=== PATIENT | female | born 1945 | race Caucasian/White ===

== ENCOUNTER → 2018-03-14 09:24 | Outpatient (CLI) | payer MEDICARE, SELFPAY ==
[2018-03-14 15:42] LABS: ALB/GLOB Ratio 0.9 RATIO (0.9-2.4); AST(SGOT) 15 U/L (15-37); Alanine Aminotransfer ALT/SGPT 23 U/L (13-56); Albumin, Serum 3.1 g/dL (3.2-5.0); Alkaline Phosphatase 80 U/L (45-117); Anion Gap 8 (5-15); BUN 12 mg/dL (7-18); BUN/Creat Ratio 14.2 RATIO (10-20); Calcium,Total 8.6 mg/dL (8.5-10.1); Chloride 112 mmol/L (98-107); Creatinine, Serum 0.84 mg/dL (0.55-1.02); EST Glomerular Filtration Rate 71 mL/min (>60); Est Glom Filt Rate - Afr Amer 86 mL/min (>60); Globulin 3.5 g/dL (2.2-4.2); Glucose 109 mg/dL (74-106); Potassium 4.2 mmol/L (3.5-5.1); Protein, Total 6.6 g/dL (6.4-8.2); Sodium Level 144 mmol/L (136-145); Thyroid Stim Hormone (TSH) 1.18 uIU/mL (0.358-3.74)
[2018-03-14 15:53] LABS: Absolute Lymphocyte Count 3.37 X10^3/ul (0.83-4.51); Absolute Neutrophil Count 7.6 X10^3/uL (2.0-7.7); Basophil# 0.05 X10^3/uL; Basophil% 0.4 % (0-1); Eosinophils% 2.4 % (0-5); Hematocrit 42.5 % (37-47); Hemoglobin 13.8 g/dl (12.0-15.0); Lymphocyte # 3.37 X10^3/ul (4.0); Lymphocyte % 27.1 % (19-41); Mean Corp Hgb Conc 32.5 g/gl (32-36); Mean Corpuscular Hgb 30.8 pg (27.0-32.0); Mean Corpuscular Volume 94.9 fL (81-99); Mean Platelet Vol. 9.8 fl (6.2-12.0); Monocyte# 1.06 X10^3/uL; Monocyte% 8.5 % (0-10); Neutrophil % 61.3 % (47-70); Platelet Count 295 K/mm3 (150-450); RBC Distribution Width CV 15.8 % (11.6-14.6); RBC Distribution Width SD 53.1 fl (35.1-43.9); Red Blood Count 4.48 M/mm3 (4.2-5.4); White Blood Count 12.4 K/mm3 (4.4-11.0)
[2018-03-14 15:54] LABS: POSITIVE COUNT NO; POSITIVE DIFFERENTIAL NO; POSITIVE MORPHOLOGY NO
[2018-03-15 08:39] LABS: Vitamin D,25 Hydroxy 19.7 ng/mL (29.95-100.01)
[2018-03-17 09:27] LABS: Hep C Antibodies <0.1 s/co ratio (0.0-0.9)
== END ==
PROVIDERS: Family Provider Family Medicine Geriatric Medicine; PCP Family Medicine Geriatric Medicine; Visit Provider Family Medicine Geriatric Medicine
DX: E11.9 Type 2 diabetes mellitus without complications (principal); E55.9 Vitamin D deficiency, unspecified; I10 Essential (primary) hypertension; Z13.89 Encounter for screening for other disorder
CPT/HCPCS: 36415; 80053; 82306; 84443; 85025; 86803

== ENCOUNTER → 2018-03-25 15:47 | Outpatient (CLI) | payer MEDICARE, SELFPAY ==
--- NOTE | 2018-03-25 16:07 | CT_ITS ---
STUDY: LOW DOSE CT LUNG CANCER SCREENING REASON FOR EXAM: Female, 73 years old. 26 pack-year tobacco use. RADIATION DOSAGE (If Supplied By Facility): CTDIvol = ( 3.02 ) mGy, DLP = ( 97.79 ) mGycm TECHNIQUE: No contrast was administered. Low dose technique was utilized (average mAS-38 and kVp 120). 1.25 mm axial source images with a slice interval of 1.25-mm were reconstructed in lung windows. 2.5 mm axial source images with a slice interval of 2.5-mm were reconstructed in lung windows. 5.0 mm axial source images with a slice interval of 5.0-mm were reconstructed in soft tissue windows. Nodule measured using lung windows on PACS and/or independent workstation with automated measurement of minimum and maximum diameter. Nodule measurement reported as average diameter rounded to the nearest whole number. Growth is defined as an increase ins size of greater than 1.5 mm. COMPARISON: March 01, 2016. NODULES: Total lung nodules (excluding granulomas): 0 Emphysema: There is diffuse emphysematous changes. There are stable bullae in the right lower and middle lobes. Endobronchial lesion: Not Aorta: There is atherosclerotic changes of the thoracic aorta without aneurysm. 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 Coronary arteries: There are coronary artery calcifications. Heart: The heart is normal in size. Pulmonary artery: Mediastinal nodes: There is stable precarinal and subcarinal lymphadenopathy. Other chest and abdominal findings: There are degenerative changes of the lumbar spine. CT/Low Dose CT Lung Screening IMPRESSION: Lung-RADS category 1 - Continue annual screening with LDCT in 12 months. IMPORTANT NOTES FOR USE: ACR Lung-RADS Version 1.0 Assessment Categories Release Date: March 09, 2014 Category: Coded 0-4 bases on nodule(s) with highest degree of suspicion. Negative screen is defined as categories 1 and 2; a positive screen is defined as categories 3 and 4. Category 3 and 4A nodules that are unchanged on interval CT should be coded as category 2, and individuals returned to screening in 12 months. Category 4X: Category 3 or 4 nodules with additional imaging findings that increase the suspicion of lung cancer, such as spiculation, GGN that doubles in size in 1 year, enlarged lymph notes, etc. Category Modifiers: S (significant finding unrelated to lung cancer) and C (prior history of treated lung cancer) may be added to the 0-4 Lung-RADS Electronically Signed: Mumtaz Mullen DO at 16:55 EDT Tel [phone], Service support ,
== END ==
PROVIDERS: Family Provider Family Medicine Geriatric Medicine; PCP Family Medicine Geriatric Medicine; Visit Provider Family Medicine Geriatric Medicine
DX: Z12.2 Encounter for screening for malignant neoplasm of respiratory organs (principal); Z87.891 Personal history of nicotine dependence
CPT/HCPCS: G0297

== ENCOUNTER → 2018-04-11 12:29 | Outpatient (CLI) | payer MEDICARE, SELFPAY ==
--- NOTE | 2018-04-11 12:30 | BI_ITS ---
MAMMOGRAPHY - BILATERAL SCREENING REASON FOR EXAM: Female, 73 years old. Routine annual screening examination. PERTINENT HISTORY: Sister with breast cancer. Aunt with breast cancer. Prior bilateral excisional breast biopsies. TECHNIQUE: Digital bilateral breast arlin (3D mammographic acquisition) in the CC and MLO projections. 2-D mediolateral oblique (MLO) and craniocaudad (CC) views of both breasts were obtained. CAD: Full Field Digital Mammography with Computer Added Detection was performed. COMPARISON: Comparison is made with prior examination dated December 01, 2014 and July 21, 2013. FINDINGS: Breast Composition: There are scattered areas of fibroglandular density. There are no dominant masses or suspicious calcifications. No other significant abnormalities are identified. There has been no significant change since the prior study. BI/SCREENING MAMM (CAD), BILAT IMPRESSION: Stable bilateral screening mammogram. Yearly follow-up mammogram recommended. (A) ASSESSMENT CATEGORY: BIRADS Category 1: Negative. A letter regarding these results will be sent to the patient by the facility within 30 days. Approximately 10% of breast cancers are not detected by mammography. A normal mammogram should not delay biopsy of a clinically suspicious abnormality. [id number] Electronically Signed: Callum Morataya MD at 14:16 EDT Tel [phone], Service support ,
--- NOTE | 2018-04-11 12:32 | BD_ITS ---
STUDY: DUAL ENERGY X-RAY ABSORPTIOMETRY / DXA REASON FOR EXAM: Female, 73 years old. The patient is postmenopausal. Loss of height. TECHNIQUE: Bone Mineral Density (BMD) measurements of lumbar spine and bilateral hips were obtained. COMPARISON: Comparison is made with prior study dated December 01, 2014. FINDINGS: Lumbar Spine (L1-L4): g/cm2 (1.245) / T-score (0.4) / Z-score (2.1) Findings are suggestive of normal bone density with a low fracture risk. Left Femur Total: g/cm2 (0.886) / T-score (-1.0) / Z-score (0.5) Left Femoral Neck: g/cm2 (0.856) / T-score (-1.3) / Z-score (0.4) Right Femur Total: g/cm2 (0.863) / T-score (-1.2) / Z-score (0.4) Right Femoral Neck: g/cm2 (0.816) / T-score (-1.6) / Z-score (0.1) The T-Scores on the most recent prior examination were: Lumbar Spine (L1-L4): There has been worsening of bone density since the previous examination. Left Femur Total: which represents a worsening of 9.7%. Right Femur Total: which represents a worsening of 7.4%. BD/Dexa Bone Density Study IMPRESSION: The patient is considered osteopenic as outlined below according to World Waldo Organization (WHO) criteria with a moderate fracture risk. There has been worsening of bone density since the previous examination. Reference Information: The T-score is the number of standard deviations above or below the standard which is normal for young adults at their peak bone mineral density. The World Health Organization (WHO) interprets the T-scores as follows: Above -1 Normal bone density Between -1 and -2.5 Osteopenia Equal to / or below -2.5 Osteoporosis As a practical clinical guideline, osteopenia may be graded as follows: Mild -1 through -1.5 Moderate -1.6 through -2.0 Severe -2.1 through -2.4 The Z-score is the number of standard deviations above or below age-matched controls. A Z-score of less than -1.5 would be considered abnormal. References: 1. NIH Osteoporosis and Related Bone Diseases http://www.osteo.org 2. International Society for Clinical Densitometry http://www.iscd.org 3. National Osteoporosis Foundation http://www.nof.org Electronically Signed: Callum Morataya MD at 13:51 EDT Tel [phone], Service support ,
== END ==
PROVIDERS: Family Provider Family Medicine Geriatric Medicine; PCP Family Medicine Geriatric Medicine; Visit Provider Family Medicine Geriatric Medicine
DX: Z00.00 Encounter for general adult medical examination without abnormal findings (principal); Z12.31 Encounter for screening mammogram for malignant neoplasm of breast; M85.80 Other specified disorders of bone density and structure, unspecified site; Z78.0 Asymptomatic menopausal state
CPT/HCPCS: 77063; 77067; 77080

== ENCOUNTER 2018-08-20 09:00 | Emergency (ER) | payer MEDICARE, SELFPAY ==
[2018-08-20 09:01] VITALS: BP 174/94; PULSE 66; PULSE 75; RESP 16; RESP 18; TEMP 36.4; O2SAT 96; O2SAT 99; BMI 23.3
[2018-08-20 09:11] LABS: Bedside Glucose 178 mg/dL (70-110)
--- NOTE | 2018-08-20 09:20 | ED.DCSUM_ITS ---
- ER Visit Summary Date of Service: 08/20/18 Chief Complaint: Unresponsive History of Present Illness: The patient is a 73 F who is a diabetic, she is on oral hypoglycemics, she is presenting with an episode of unresponsiveness, she was found to have a blood sugar of 41, now it is resolved after EMS adminis tration of glucagon and dextrose. She tells me she did not eat dinner last night or breakfast this morning but she did take her oral hypoglycemics this morning. She is now back to baseline and has no complaints. She has no chest pain shortness of breath, she has no fever or chills. Physical Examination: Not appear in acute distress. Moist mucous membranes, no obvious facial deformity No C-spine tenderness supple neck. Regular rate and rhythm without any obvious murmurs Clear lungs bilaterally speaking in full sentences without any obvious respiratory distress Abdomen soft and nontender no guarding or rebound Moves all extremities without any difficulty or pain. Skin does not show any obvious rashes or lesions, no trauma. Alert oriented ?3 with no gross focal deficit Emergency Department Course and Treatment: Patient had an unremarkable workup. She was observed in the emergency department, she ate and is doing quite well. She was educated about eating when she takes her oral hypoglycemics. She understands this. She will be discharged in stable condition. Discharge stable condition Impression: [Hypoglycemia] This note was generated with You[employer] dictation software. It may contain incorrect words, spelling, and punctuation that were not noted in review of the chart prior to signing ED Disposition - Plan for ED Patient: Disposition: Home or Assisted Living Chief Complaint: Hypoglycemia Instructions: ED Diabetes Hypoglycemia Oral Agent Referrals: Serafin Juan Chi, MD [Primary Care Provider] - 3-5 Days
--- NOTE | 2018-08-20 09:57 | ED.RN ---
pt ate few bites ham and cheese sandwich, few bite chesse stick, yogurt. given a chicken and pasta meal
[2018-08-20 10:03] VITALS: BP 141/80; PULSE 71; RESP 16; O2SAT 98
[2018-08-20 10:14] LABS: ALB/GLOB Ratio 0.9 RATIO (0.9-2.4); AST(SGOT) 12 U/L (15-37); Alanine Aminotransfer ALT/SGPT 17 U/L (13-56); Albumin, Serum 3.3 g/dL (3.2-5.0); Alkaline Phosphatase 87 U/L (45-117); Anion Gap 10 (5-15); BUN 28 mg/dL (7-18); BUN/Creat Ratio 23.3 RATIO (10-20); Calcium,Total 8.5 mg/dL (8.5-10.1); Chloride 106 mmol/L (98-107); EST Glomerular Filtration Rate 47 mL/min (>60); Est Glom Filt Rate - Afr Amer 57 mL/min (>60); Estimated Creatinine Clearance 40.25 ml/min; Globulin 3.8 g/dL (2.2-4.2); Glucose 257 mg/dL (74-106); Potassium 3.5 mmol/L (3.5-5.1); Protein, Total 7.1 g/dL (6.4-8.2); Sodium Level 138 mmol/L (136-145)
[2018-08-20 10:21] LABS: Eosinophil# 0.18 X10^3/uL; Eosinophils% 1.2 % (0-5); Hemoglobin 15.5 g/dl (12.0-15.0); Lymphocyte % 11.5 % (19-41); Mean Corp Hgb Conc 33.7 g/gl (32-36); Mean Corpuscular Hgb 30.6 pg (27.0-32.0); Mean Corpuscular Volume 90.9 fL (81-99); Mean Platelet Vol. 9.2 fl (6.2-12.0); Monocyte% 5.1 % (0-10); Neutrophil % 81.7 % (47-70); POSITIVE COUNT NO; POSITIVE DIFFERENTIAL NO; POSITIVE MORPHOLOGY NO; Platelet Count 274 K/mm3 (150-450); RBC Distribution Width CV 15.2 % (11.6-14.6); RBC Distribution Width SD 50.5 fl (35.1-43.9); Red Blood Count 5.06 M/mm3 (4.2-5.4); White Blood Count 14.5 K/mm3 (4.4-11.0)
[2018-08-20 10:22] LABS: Absolute Lymphocyte Count 1.66 X10^3/ul (0.83-4.51); Absolute Neutrophil Count 11.8 X10^3/uL (2.0-7.7); Basophil# 0.04 X10^3/uL; Basophil% 0.3 % (0-1); Lymphocyte # 1.66 X10^3/ul (4.0); Monocyte# 0.74 X10^3/uL; Neutrophil # 11.81 X10^3/uL (2.7-7.7)
[2018-08-20 10:30] LABS: Bedside Glucose 257 mg/dL (70-110)
--- NOTE | 2018-08-20 10:45 | NURSING ---
NO LW OR POA
[2018-08-20 11:14] VITALS: BP 148/79; PULSE 87; RESP 16; O2SAT 99
== END 2018-08-20 11:14 | disposition home or self-care (01) ==
PROVIDERS: Emergency Provider Emergency Medicine; Family Provider Family Medicine Geriatric Medicine; PCP Family Medicine Geriatric Medicine
DX: E11.649 Type 2 diabetes mellitus with hypoglycemia without coma (principal); I25.10 Atherosclerotic heart disease of native coronary artery without angina pectoris; I10 Essential (primary) hypertension; E78.00 Pure hypercholesterolemia, unspecified; Z79.84 Long term (current) use of oral hypoglycemic drugs
CPT/HCPCS: 36415; 80053; 82962; 85025; 99284; A4216; J1610

== ENCOUNTER → 2018-09-17 13:11 | Outpatient (CLI) | payer MEDICARE, SELFPAY ==
[2018-09-17 17:07] LABS: Vitamin D,25 Hydroxy 17.8 ng/mL (29.95-100.01)
[2018-09-17 17:09] LABS: ALB/GLOB Ratio 0.9 RATIO (0.9-2.4); AST(SGOT) 11 U/L (15-37); Absolute Lymphocyte Count 3.12 X10^3/ul (0.83-4.51); Absolute Neutrophil Count 8.2 X10^3/uL (2.0-7.7); Alanine Aminotransfer ALT/SGPT 24 U/L (13-56); Albumin, Serum 3.4 g/dL (3.2-5.0); Alkaline Phosphatase 96 U/L (45-117); Anion Gap 12 (5-15); BUN 11 mg/dL (7-18); BUN/Creat Ratio 12.7 RATIO (10-20); Basophil# 0.03 X10^3/uL; Basophil% 0.2 % (0-1); Calcium,Total 8.8 mg/dL (8.5-10.1); Chloride 106 mmol/L (98-107); Creatinine, Serum 0.87 mg/dL (0.55-1.02); EST Glomerular Filtration Rate 68 mL/min (>60); Eosinophil# 0.25 X10^3/uL; Est Glom Filt Rate - Afr Amer 83 mL/min (>60); Globulin 3.8 g/dL (2.2-4.2); Glucose 87 mg/dL (74-106); Hematocrit 46.2 % (37-47); Hemoglobin 14.6 g/dl (12.0-15.0); Lymphocyte # 3.12 X10^3/ul (4.0); Lymphocyte % 24.7 % (19-41); Mean Corp Hgb Conc 31.6 g/gl (32-36); Mean Corpuscular Hgb 30.4 pg (27.0-32.0); Mean Corpuscular Volume 96.3 fL (81-99); Mean Platelet Vol. 9.7 fl (6.2-12.0); Monocyte# 0.99 X10^3/uL; Monocyte% 7.8 % (0-10); Neutrophil # 8.23 X10^3/uL (2.7-7.7); Neutrophil % 65.1 % (47-70); POSITIVE COUNT NO; POSITIVE DIFFERENTIAL NO; POSITIVE MORPHOLOGY NO; Platelet Count 321 K/mm3 (150-450); Potassium 4.1 mmol/L (3.5-5.1); Protein, Total 7.2 g/dL (6.4-8.2); RBC Distribution Width CV 15.6 % (11.6-14.6); Sodium Level 143 mmol/L (136-145); Thyroid Stim Hormone (TSH) 0.96 uIU/mL (0.358-3.74); White Blood Count 12.6 K/mm3 (4.4-11.0)
== END ==
PROVIDERS: Family Provider Family Medicine Geriatric Medicine; PCP Family Medicine Geriatric Medicine; Visit Provider Family Medicine Geriatric Medicine
DX: E11.9 Type 2 diabetes mellitus without complications (principal); I10 Essential (primary) hypertension; E55.9 Vitamin D deficiency, unspecified
CPT/HCPCS: 36415; 80053; 82306; 84443; 85025

== ENCOUNTER → 2019-03-18 | Outpatient (CLI) | payer MEDICARE, SELFPAY ==
[2019-03-18 18:19] LABS: ALB/GLOB Ratio 0.9 RATIO (0.9-2.4); AST(SGOT) 15 U/L (15-37); Alanine Aminotransfer ALT/SGPT 22 U/L (13-56); Albumin, Serum 3.4 g/dL (3.2-5.0); Alkaline Phosphatase 82 U/L (45-117); Anion Gap 9 (5-15); BUN 15 mg/dL (7-18); BUN/Creat Ratio 17.3 RATIO (10-20); Calcium,Total 8.8 mg/dL (8.5-10.1); Chloride 110 mmol/L (98-107); Creatinine, Serum 0.86 mg/dL (0.55-1.02); EST Glomerular Filtration Rate 69 mL/min (>60); Est Glom Filt Rate - Afr Amer 83 mL/min (>60); Globulin 3.7 g/dL (2.2-4.2); Glucose 110 mg/dL (74-106); Potassium 4.1 mmol/L (3.5-5.1); Protein, Total 7.1 g/dL (6.4-8.2); Sodium Level 142 mmol/L (136-145); Thyroid Stim Hormone (TSH) 1.36 uIU/mL (0.358-3.74)
[2019-03-18 19:17] LABS: Absolute Lymphocyte Count 3.33 X10^3/ul (0.83-4.51); Absolute Neutrophil Count 8.2 X10^3/uL (2.0-7.7); Basophil# 0.06 X10^3/uL; Basophil% 0.5 % (0-1); Eosinophil# 0.38 X10^3/uL; Hematocrit 42.7 % (37-47); Hemoglobin 13.7 g/dl (12.0-15.0); Lymphocyte # 3.33 X10^3/ul (4.0); Lymphocyte % 26.3 % (19-41); Mean Corp Hgb Conc 32.1 g/gl (32-36); Mean Corpuscular Hgb 29.8 pg (27.0-32.0); Mean Corpuscular Volume 92.8 fL (81-99); Mean Platelet Vol. 9.6 fl (6.2-12.0); Monocyte# 0.73 X10^3/uL; Monocyte% 5.8 % (0-10); Neutrophil # 8.16 X10^3/uL (2.7-7.7); Neutrophil % 64.3 % (47-70); Platelet Count 277 K/mm3 (150-450); RBC Distribution Width CV 15.8 % (11.6-14.6); RBC Distribution Width SD 53.4 fl (35.1-43.9); White Blood Count 12.7 K/mm3 (4.4-11.0)
[2019-03-18 19:18] LABS: POSITIVE COUNT NO; POSITIVE DIFFERENTIAL NO; POSITIVE MORPHOLOGY NO
== END | disposition home or self-care (01) ==
LOC: POLAB3 16:01
PROVIDERS: Family Provider Family Medicine Geriatric Medicine; PCP Family Medicine Geriatric Medicine; Visit Provider Family Medicine Geriatric Medicine
DX: E11.9 Type 2 diabetes mellitus without complications (principal); I10 Essential (primary) hypertension; E55.9 Vitamin D deficiency, unspecified
CPT/HCPCS: 36415; 80053; 82306; 84443; 85025

== ENCOUNTER 2019-05-30 08:27 | Inpatient (IN) | payer MEDICARE, SELFPAY ==
[2019-05-30] VITALS (15 sets, daily range): BP systolic 130–171; BP diastolic 73–113; PULSE 63–104; RESP 12–32; TEMP 36.4–37.4; O2SAT 3–98; BMI 25.2; BMI 24.7; BMI 24.8
[2019-05-30 08:35] LABS: Bedside Glucose 370 mg/dL (70-110)
--- NOTE | 2019-05-30 08:38 | EKG12_ITS ---
Test Reason : SOB Blood Pressure : / mmHG Vent. Rate : 098 BPM Atrial Rate : 098 BPM P-R Int : 170 ms QRS Dur : 098 ms QT Int : 370 ms P-R-T Axes : 098 073 -56 degrees QTc Int : 472 ms Normal sinus rhythm ST & T wave abnormality, consider inferolateral ischemia Prolonged QT Abnormal ECG Confirmed by DAVEY ABERNATHY, DEMETRA ([id number]), managing editor JUAN JOSÉ MOCTEZUMA ([id number]) on 06/02/2019 12:37:33 PM Referred By: TIMO Confirmed By:DEMETRA MARISCAL MD
--- NOTE | 2019-05-30 08:41 | ED.VISSUMM ---
- ER Visit Summary Date of Service: 05/30/19 Chief Complaint: Shortness of breath History of Present Illness: The patient is a 74 F history of COPD, iot-dyddpie-enfdytegz diabetes prior OH and hypertension. Patient states she has become short of breath this week. Progressively worsening last several days. Cough of clear phlegm. No hemoptysis. No chest pain. No fever. Today she began having diaphoresis. Called the squad. When they picked her up from her home her pulse ox was 78% on room air. She denies any leg swelling or pain. She is never had a DVT or PE. She is had no recent hospitalizations or travel. Physical Examination: Elderly female. He was diaphoretic. Appears short of breath. Initial blood pressure 171/113. Pulse ox is 91% on oxygen. She was hypoxic without it at home. HEENT exam unremarkable. Moist mucous membranes. Neck nontender. No lymphadenopathy. No JVD. Lungs prolonged expiratory phase bilaterally. Expiratory wheezes bilaterally. No obvious rales or rhonchi. Equal and symmetrical. Decreased air movement. Heart regular rhythm no murmur. Abdomen soft and nontender. Normal bowel sounds no peritoneal signs. She is moving all 4 extremities. Calves are nontender without edema or cords. Neurologically she is awake and alert with no focal motor deficits. Test Results: CBC shows a white count 21,000. She is currently on prednisone. Hemoglobin of 13 no bands. Chemistries normal creatinine 1. Gap 7 glucose 364. Troponin is slightly elevated 0.075. BNP is elevated at 785. EKG sinus rhythm with an old inferior OH seen on a prior EKG. Chest x-ray chronic changes consistent with COPD. Concern for pulmonary edema. With the also elevated BNP she will be treated with Lasix for possible pulmonary edema. Emergency Department Course and Treatment: Patient treated with IV Solu-Medrol and aerosols both DuoNeb and albuterol. She will need admission to the hospital. She will be worked up for COPD flare with also evaluation of her cardiac status. Treatment Plan: Patient was started on BiPAP and is showing significant improvement. Clinically she is doing much better at 0 9:52 AM after the BiPAP. She also be given IV Lasix for the pulmonary edema. Hospitalist is on page for admission. Disposition: Admission Impression: Acute exacerbation of COPD Acute pulmonary edema Abnormal troponin Acute hypoxia History of diabetes This note was generated with Dragon dictation software. It may contain incorrect words, spelling, and punctuation that were not noted in review of the chart prior to signing ED Disposition - Plan for ED Patient: Referrals: Serafin Juan Chi, MD [Primary Care Provider] -
[2019-05-30] MEDS: 0.9% Normal Saline 1,000 ML 150 ML IV (09:03)
[2019-05-30] MEDS: MethylPREDNISolone 125 MG/2 ML Vial IV (09:03)
[2019-05-30] MEDS: Ipratropium/Albuterol Sulfate 3 ML AMPUL.NEB INHALATION ×2 (09:15→19:33)
--- NOTE | 2019-05-30 09:18 | RAD_ITS ---
STUDY: X-RAY CHEST REASON FOR EXAM: Female, 74 years old. Shortness of breath/dyspnea. Cough. Diaphoresis. TECHNIQUE: Single AP portable view of the chest. COMPARISON: Comparison is made with prior examination of January 05, 2011. FINDINGS: EKG electrodes are seen. Hyperinflation. Now with evidence of increased interstitial markings worse at the lung bases with areas of confluence. This is superimposed on vascular congestion and mild degree of CHF. There is no demonstrated pleural abnormality. Normal size heart. Normal mediastinum and cat. Normal visualized pulmonary arteries. There is atherosclerotic calcification of the aortic arch with tortuosity. There are diffuse degenerative changes of the visualized thoracic spine. Normal visualized ribs, clavicles, and shoulders. There is no demonstrated abnormality of the visualized soft tissue structures of the upper abdomen. RAD/Chest 1 View (Portable) IMPRESSION: Findings suggestive of a mild degree of CHF with interstitial changes at the lung bases. Electronically Signed: Callum Morataya, at 9:42 EDT , Service support ,
[2019-05-30] MEDS: Albuterol 2.5 MG/3 ML VIAL.NEB. INHALATION ×3 (09:30→10:00)
--- NOTE | 2019-05-30 10:02 | CPS ---
Initial Duoneb tx given via Mask. The next three Albuterol tx's given In-Line with BiPaP
[2019-05-30 10:12] LABS: Absolute Lymphocyte Count 1.16 X10^3/uL (0.83-4.51); Absolute Neutrophil Count 18.4 X10^3/uL (2.0-7.7); Basophil# 0.05 X10^3/uL; Basophil% 0.2 % (0-1); Eosinophil# 0.02 X10^3/uL; Eosinophils% 0.1 % (0-5); Hematocrit 44.3 % (37-47); Hemoglobin 13.8 g/dL (12.0-15.0); Lymphocyte # 1.16 X10^3/ul (4.0); Lymphocyte % 5.5 % (19-41); Mean Corp Hgb Conc 31.2 g/dL (32-36); Mean Corpuscular Hgb 29.9 pg (27.0-32.0); Mean Corpuscular Volume 96.1 fL (81-99); Mean Platelet Vol. 9.6 fl (6.2-12.0); Monocyte# 1.31 X10^3/uL; Monocyte% 6.2 % (0-10); NRBC Flagged by Analyzer 0 % (0-5); Neutrophil # 18.35 X10^3/uL (2.7-7.7); Neutrophil % 87.3 % (47-70); Platelet Count 286 K/mm3 (150-450); RBC Distribution Width CV 16.5 % (11.6-14.6); RBC Distribution Width SD 57.9 fl (35.1-43.9); Red Blood Count 4.61 M/mm3 (4.2-5.4)
[2019-05-30 10:29] LABS: Anion Gap 7 (5-15); BUN 18 mg/dL (7-18); Calcium,Total 8.5 mg/dL (8.5-10.1); Chloride 106 mmol/L (98-107); Creatinine, Serum 1.06 mg/dL (0.55-1.02); EST Glomerular Filtration Rate 54 mL/min (>60); Est Glom Filt Rate - Afr Amer 66 mL/min (>60); Estimated Creatinine Clearance 43.17 ml/min; Glucose 364 mg/dL (74-106); Sodium Level 139 mmol/L (136-145)
[2019-05-30 10:39] LABS: BNP,B-Type NATRIURETIC PEPTIDE 786.2 pg/mL (0-100)
[2019-05-30] MEDS: Furosemide 20 MG/2 ML VIAL IV ×3 (10:51→22:12)
[2019-05-30 12:51] LABS: Bedside Glucose 271 mg/dL (70-110)
[2019-05-30] MEDS: Insulin Lispro 100 UNIT/ML INSULN.PEN SC ×2 (13:40→17:59)
--- NOTE | 2019-05-30 14:44 | CASEMGMT ---
JEANIE VELASCO assessment: Face to Face with patient for initial transition planning/care coordination assessment. JEANIE VELASCO introduced self and role at [facility], pt voices understanding and consents to assessment at this time. Pt is sitting up in bed in no distress at this time and is on 1.5liters oxygen at this time. Pt is A/Ox4 at this time and answers all questions appropriately at this time. Care providers, pharmacy, and demographics verified at this time. PCP: [facility] Specialists: Pt states currently has no specialists. Preferred [facility]acy: [facility] Insurance: [facility] A/B Prescription Benefit: [employer] Living Will/HPOA: Pt is unaware whether she has LW/HPOA at this time and is aware that [facility] can provide AD info and can assist, if needed, pt voices understanding. LNOK: Raj Davidson, ; Joycelyn Davidson, daughter Living Arrangements: Pt states lives in 1 story home with a couple steps into home and states no concerns at home at this time. Pt states is independent with ADL's. Transportation: Pt states she can drive but does most of the driving and pt states no transportation concerns at this time. DME/HHC: Pt states has the following DME: cane, walker, rails, grab bars, but does not use cane/walker currently. Pt states no need for any further DME. Pt states no hx of HHC or SNF in the past. Pt states no preference if oxygen needed at discharge. Pt states no concerns with going home at time of discharge. Pt states is retired. Pt states smokes about 1/2pk/day and does not drink ETOH. Pt states no further concerns/needs at this time. CM to follow for home oxygen and any further discharge planning/needs. Advised pt to ask for CM if any further questions/concerrns/needs arise, voices understanding. Pt Goal: Home Plan[place] JEANIE VELASCO
--- NOTE | 2019-05-30 14:47 | CASEMGMT ---
Patient does not have a Healthcare POA or Healthcare LW. Per admission questions she is not interested in documents. Sera CANTU
--- NOTE | 2019-05-30 15:12 | PCM.HP.STD ---
Problem List (1) HTN (hypertension) Status: Chronic (2) Type 2 diabetes mellitus Status: Chronic (3) Tobacco dependence Status: Chronic History of Present Illness Date of Admission: 05/30/19 Chief Complaint: Shortness of breath, cough. The patient is a 74 year old F who presents the emergency room due to increased shortness of breath and cough. Patient reports she saw her primary care physician on Sunday due to upper respiratory symptoms and ear pressure who placed her on oral doxycycline and prednisone. She reports she had increased shortness of breath this morning which brought her to the emergency room for evaluation. She denies weight gain, lower extremity swelling, orthopnea. She complains of cough which is occasionally productive of clear to yellow sputum. Denies fever, chills. Denies chest pain. She has a past medical history of hypertension, hyperlipidemia, type 2 diabetes mellitus, tobacco dependence. She denies history of COPD or asthma. Denies history of CHF. Past Medical History Past Medical History (Chronic Problems): Chronic Problems HTN (hypertension) (Chronic) Type 2 diabetes mellitus (Chronic) Tobacco dependence (Chronic) Allergies penicillin V Adverse Reaction (Severe, Verified 05/30/19 08:37) Unknown Home Medications: Ambulatory Orders Medication Instructions Recorded Aspir-Low 1 tab PO DAILY 02/05/17 Atorvastatin Calcium 1 tab PO DAILY 02/05/17 Glimepiride [Amaryl] 1 tab PO BID 02/05/17 Isosorbide Mononitrate [Isosorbide 1 tab PO DAILY 02/05/17 Mononitrate ER] Lisinopril 1 tab PO DAILY 02/05/17 Metoprolol Tartrate [Lopressor 100 mg PO BID 02/05/17 (Beta Janel)] metFORMIN HCl [Glucophage] 1 tab PO BID 02/05/17 Albuterol Sulfate [Ventolin Hfa] 2 inhaler PO Q4H PRN 05/30/19 Doxycycline Hyclate 100 mg PO DAILY 05/30/19 Fluticasone Propionate 1 spray NASAL BID 05/30/19 Pioglitazone HCl 15 mg PO DAILY 05/30/19 Prednisone 10 mg PO DAILY 05/30/19 Surgical History: cholecystectomy, hysterectomy, - - Bilateral breast biopsy, left ankle surgery, left toe amputation, right wrist surgery. Psychiatric History: No pertinent psych hx M[employer]ED [employer]IM[employer] VETERINARIAN History: No pertinent [employer]IM[employer] VETERINARIAN history Lives: Spouse/ Significant Other Smoking Status: Current every day smoker Tobacco Use: Cigarettes - Half pack per day Alcohol: None Drugs: None - *Family History Maternal History Items: - - secondary to blood clot. Paternal History Items: Heart Disease, Hypertension Review of Systems Constitutional: Denies: Chills, Fever, Weight Change HEENT: Denies: Head Aches, Sinus Congestion, Sinus Drainage Cardiovascular: Denies: Chest Pain, Edema, Palpitations, Syncope Respiratory: Reports: Cough, Shortness of Breath, Sputum production Gastrointestinal: Denies: Abdominal Pain, Nausea, Vomiting Genitourinary: Denies: Dysuria Musculoskeletal: Denies: Joint Pain, Joint Tenderness Skin: Denies: Rash, Wounds Neurological: Denies: Numbness, Tingling, Focal weakness Psychiatric: Denies: Anxiety, Depression, Homicidal Ideations, Suicidal Ideations Hematologic/ Lymphatic: Denies: Easy Bruising, Easy Bleeding VTE Information - Inpt Only VTE Present on Admission: No VTE Mechan Device Prophylaxis: None VTE Pharm Prophylaxis ordered?: Yes - Physical Exam General: Alert, Oriented x3, Cooperative HEENT: Atraumatic, PERRLA, EOMI, Normocephalic Neck: Supple, No JVD, Negative Carotid Bruits Lungs: Diminished, Wheezes, - - Crackles bilateral bases Cardiovascular: Regular rate, Regular Rhythm, Normal S1, Normal S2, No murmurs Abdomen: Bowel Sounds Present, Soft, Non Tender, Non-Distended Extremities: No clubbing, No cyanosis, No edema, Capillary Refill Less than 3 Seconds Skin: No rashes, No breakdown, - - Scattered ecchymosis bilateral upper extremities. Musculoskeletal: No Tenderness to Palpation of Joints or Extremities Neurological: Cranial nerves II-XII grossly intact, Neuro grossly intact Psych/Mental Status: Normal Affect, Appropriate Vital Signs Temp Pulse Resp BP Pulse Ox 97.9 F 75 18 164/102 H 98 05/30/19 11:51 05/30/19 12:45 05/30/19 12:45 05/30/19 11:51 05/30/19 12:45 Oxygen Flow Rate (L/min) 2 Oxygen Delivery Method Nasal Cannula Weight: 149 lb 0.52 oz Body Mass Index (BMI) 24.7 Laboratory Tests Past 24 Hrs 05/30/19 05/30/19 05/30/19 10:05 10:05 10:05 WBC 21.0 H RBC 4.61 Hgb 13.8 Hct 44.3 MCV 96.1 MCH 29.9 MCHC 31.2 L RDW Std Deviation 57.9 H RDW Coeff of Musa 16.5 H Plt Count 286 MPV 9.6 Immature Gran % (Auto) 0.700 Neut % (Auto) 87.3 H Lymph % (Auto) 5.5 L [place] % (Auto) 6.2 Eos % (Auto) 0.1 Baso % (Auto) 0.2 Absolute Neuts (auto) 18.4 H Absolute Lymphs (auto) 1.16 Absolute Nucleated RBC 0.00 Nucleated RBC % 0 Sodium 139 Potassium 5.0 Chloride 106 Carbon Dioxide 26.0 Anion Gap 7 BUN 18 Creatinine 1.06 H Estim Creat Clear Calc 43.17 Est GFR (MDRD) Af Amer 66 Est GFR (MDRD) Non-Af 54 L BUN/Creatinine Ratio 17.0 Glucose 364 H Calcium 8.5 Troponin I 0.075 H B-Natriuretic Peptide 786.2 H POC Glucose 05/30/19 05/30/19 12:37 08:32 POC Glucose 271 H 370 H Assessment/Plan 1. Acute hypoxic respiratory failure, suspected multifactorial due to new onset CHF and presumed COPD exacerbation-continue supplement oxygen to maintain O2 at or above 90%. Initially placed on BiPAP in ER. Oxygen now stable on 2 L nasal cannula. Albuterol and DuoNeb aerosols. 2. New onset CHF-unknown subtype. BNP 786. Chest x-ray admission consistent with CHF. Patient significantly improved with IV Lasix administered in ER. Continue IV Lasix 20 mg every 8 hours. Strict I&O. Daily weight. Obtain echocardiogram. Repeat chest x-ray in a.m. 3. Suspected COPD exacerbation-patient with recent URI. Denies history of COPD however has extensive tobacco use history and prior imaging with emphysema. Albuterol and DuoNeb aerosols. IV Solu-Medrol. Respiratory panel pending. Recommend outpatient follow-up with pulmonary medicine for pulmonary function testing. 4. Abnormal troponin-suspect demand ischemia as a result of #1/#2. Trend enzymes. Denies chest pain. EKG without ST-T changes. 5. Hypertension-continue home isosorbide, lisinopril, metoprolol regimen. 6. Hyperlipidemia-continue statin. 7. Tobacco dependence-encouraged smoking cessation. Nicotine replacement patch if desired. 8. Type 2 diabetes mellitus-hold home pioglitazone. Accu-Cheks ACHS with SSI. Patient's glucose elevated on admission which is suspected secondary to recent steroid use. DVT prophylaxis-Lovenox subcu. This patient was seen by EARLE Navarro under the supervision of Dr. Corley.
--- NOTE | 2019-05-30 15:42 | ECHOD_ITS ---
Reason For Study: CHF Procedure This was a 2D Doppler, Color Flow transthoracic echocardiogram. Exam performed portable in patient room. Left Ventricle Normal LV size. Mild concentric left ventricular hypertrophy. The estimated ejection fraction is 40 %. Severe Inferior posterior hypokinesis. Right Ventricle Normal right ventricle. Atria The left atrium is mildly enlarged. Mitral Valve Moderate (2+) mitral valve insufficiency. Tricuspid Valve Mild tricuspid valve insufficiency. Pulmonary artery systolic pressure is 43 mmHg. Aortic Valve Normal aortic valve. Pulmonic Valve The pulmonic valve is not well visualized. Great Vessels Normal inferior vena cava. MMode/2D Measurements & Calculations LVIDd: 5.0 cm IVSd: 1.1 cm Ao root diam: 3.5 cm LVIDs: 4.5 cm LVPWd: 1.2 cm RVDd: 3.1 cm FS: 10.1 % LAV(MOD-bp): 61.6 ml LA A4 area: 18.8 cm2 LA dimension(2D): 4.1 cm LAV(MOD-bp) Indexed: 35.2 ml/m2 LAV(MOD-sp2): 70.9 ml LAV(MOD-sp4): 52.0 ml RA A4 area: 15.6 cm2 Doppler Measurements & Calculations MV E max karl: 88.0 cm/sec Lat Peak E' Karl: 6.8 cm/sec Med Peak E' Karl: 3.8 cm/sec MV A max karl: 70.3 cm/sec E/E' lat: 13.0 E/E' med: 23.1 MV E/A: 1.3 Ao V2 max: 119.1 cm/sec LV V1 max: 91.6 cm/sec PA V2 max: 87.8 cm/sec Ao max P.7 mmHg LV V1 max P.4 mmHg TR max karl: 308.0 cm/sec TR max P.1 mmHg Interpretation Summary The estimated ejection fraction is 40 %. Severe Inferior posterior hypokinesis Pulmonary artery systolic pressure is 43 mmHg. Moderate (2+) mitral valve insufficiency. Ordering Physician: Ashlyn Sandra Referring Physician: Serafin Juan Chi Performed By: Leti Garcia RDCS
[2019-05-30 16:16] LABS: Bedside Glucose 363 mg/dL (70-110)
[2019-05-30] MEDS: metFORMIN HCl 1,000 MG Tablet 1000 MG PO (17:58)
[2019-05-30] MEDS: Atorvastatin Calcium 80 MG Tablet PO (22:12)
[2019-05-30] MEDS: Metoprolol Tartrate 100 MG Tablet PO (22:12)
[2019-05-30 22:25] LABS: Bedside Glucose 136 mg/dL (70-110)
[2019-05-31] VITALS (17 sets, daily range): BP systolic 124–150; BP diastolic 72–87; PULSE 57–82; RESP 16–20; TEMP 36.6–37.2; O2SAT 93–96
[2019-05-31] MEDS: Ipratropium/Albuterol Sulfate 3 ML AMPUL.NEB INHALATION ×3 (00:31→13:21)
--- NOTE | 2019-05-31 01:29 | EKG12_ITS ---
Test Reason : ELEVATED TROP Blood Pressure : / mmHG Vent. Rate : 058 BPM Atrial Rate : 058 BPM P-R Int : 160 ms QRS Dur : 100 ms QT Int : 540 ms P-R-T Axes : 000 044 098 degrees QTc Int : 530 ms Sinus bradycardia Nonspecific ST and T wave abnormality Prolonged QT Abnormal ECG When compared with ECG of 30-MAY-2019 09:06, MANUAL COMPARISON REQUIRED, DATA IS UNCONFIRMED Confirmed by DAVEY ABERNATHY, DEMETRA ([id number]), editor farm journal JUAN JOSÉ MOCTEZUMA ([id number]) on 06/03/2019 1:59:12 PM Referred By: DR HERNANDEZ Confirmed By:DEMETRA MARISCAL MD
--- NOTE | 2019-05-31 01:32 | PCM.PN.BLA ---
Progress Note Patient was admitted for acute CHF as the patient COPD as the patient end of abdominal troponin. Troponin was trended and noted to be increasingly rising. Initial troponin was 0.075. Now troponin is 5.140. Patient takes aspirin 81 mg daily at home and had already been continued in the hospital. Will give patient aspirin 162 mg x 1 dose. Will check lipid panel. Will start patient on therapeutic dose of Lovenox. Patient is already on high intensity statin. We will get a 12-lead EKG. Will consult cardiology.
--- NOTE | 2019-05-31 01:33 | NURSING ---
Pts primary rn aware of lab results. And that Dr Connell is aware and placing orders.
[2019-05-31] MEDS: Aspirin 81 MG TAB.CHEW 162 MG PO (02:13)
[2019-05-31] MEDS: Enoxaparin 80 MG/0.8 ML Syringe 70 MG SC ×2 (02:13→10:05)
--- NOTE | 2019-05-31 05:55 | RAD_ITS ---
STUDY: X-RAY CHEST REASON FOR EXAM: Female, 74 years old. Shortness of breath TECHNIQUE: AP COMPARISON: Previous day FINDINGS: The interstitial densities evident on the prior study are no longer identified. No airspace consolidation. There is no demonstrated pleural abnormality. Normal size heart. EKG leads project over the chest. Normal mediastinum and cat. Normal visualized pulmonary arteries. There is atherosclerotic calcification of the aortic arch with tortuosity. No acute bony process. There is no demonstrated abnormality of the visualized soft tissue structures of the upper abdomen. RAD/Chest 1 View (Portable) IMPRESSION: Favorable change. Resolution of interstitial edema/CHF. Electronically Signed: Jose Rae MD at 13:48 EDT , Service support ,
[2019-05-31] MEDS: 0.9% NaCl Peripheral Flush Adult/Peds IV ×3 (06:38→21:13)
[2019-05-31] MEDS: Furosemide 20 MG/2 ML VIAL IV (06:38)
[2019-05-31] MEDS: Insulin Lispro 100 UNIT/ML INSULN.PEN SC ×4 (06:52→21:12)
[2019-05-31 07:01] LABS: Bedside Glucose 161 mg/dL (70-110)
[2019-05-31 07:20] LABS: Anion Gap 10 (5-15); BUN 24 mg/dL (7-18); BUN/Creat Ratio 23.5 RATIO (10-20); Calcium,Total 8.6 mg/dL (8.5-10.1); Chloride 103 mmol/L (98-107); Cholesterol 107 mg/dL (200); Creatinine, Serum 1.02 mg/dL (0.55-1.02); EST Glomerular Filtration Rate 57 mL/min (>60); Est Glom Filt Rate - Afr Amer 69 mL/min (>60); Estimated Creatinine Clearance 44.86 ml/min; Glucose 170 mg/dL (74-106); High Density Lipoprotein 51 mg/dL; Potassium 3.6 mmol/L (3.5-5.1); Sodium Level 143 mmol/L (136-145); Triglycerides 133 mg/dL; Very Low Density Lipoprotein 27 mg/dL (5-40)
[2019-05-31] MEDS: Metoprolol Tartrate 100 MG Tablet PO ×2 (10:02→21:12)
[2019-05-31] MEDS: Isosorbide Mononitrate 60 MG Tablet PO (10:02)
[2019-05-31] MEDS: Aspirin 81 MG TAB.CHEW PO (10:02)
[2019-05-31] MEDS: Lisinopril 5 MG Tablet PO (10:02)
[2019-05-31] MEDS: metFORMIN HCl 1,000 MG Tablet 1000 MG PO ×2 (10:02→17:04)
[2019-05-31 12:30] LABS: Bedside Glucose 253 mg/dL (70-110)
--- NOTE | 2019-05-31 12:44 | PCM.CONS.C ---
Problem List (1) NSTEMI (non-ST elevated myocardial infarction) Status: Acute Reason for Consult Date of Consultation: 05/31/19 History of Present Illness: The patient is a 74 year old F with past medical history significant for diabetes mellitus, dyslipidemia and hypertension. She presented to the emergency room with complaints of acute onset shortness of breath. Denied any chest pain or heaviness. She was initially admitted as COPD exacerbation. However troponins were checked. These ruled in for non-ST elevation myocardial infarction. Per patient, she had been feeling unwell for the past couple of days. Denies any chest pain either at rest or with exertion. She denies any previous history of rest or exertional dyspnea. No nausea or vomiting. [] Past Medical History Allergies/Adverse Reactions: Allergies penicillin V Adverse Reaction (Severe, Verified 05/30/19 08:37) Unknown Home Medications: Ambulatory Orders Medication Instructions Recorded Aspir-Low 1 tab PO DAILY 02/05/17 Atorvastatin Calcium 1 tab PO DAILY 02/05/17 Glimepiride [Amaryl] 1 tab PO BID 02/05/17 Isosorbide Mononitrate [Isosorbide 1 tab PO DAILY 02/05/17 Mononitrate ER] Lisinopril 1 tab PO DAILY 02/05/17 Metoprolol Tartrate [Lopressor 100 mg PO BID 02/05/17 (Beta Janel)] metFORMIN HCl [Glucophage] 1 tab PO BID 02/05/17 Albuterol Sulfate [Ventolin Hfa] 2 inhaler PO Q4H PRN 05/30/19 Doxycycline Hyclate 100 mg PO DAILY 05/30/19 Fluticasone Propionate 1 spray NASAL BID 05/30/19 Pioglitazone HCl 15 mg PO DAILY 05/30/19 Prednisone 10 mg PO DAILY 05/30/19 Past Medical History (Chronic Problems): Chronic Problems HTN (hypertension) (Chronic) Type 2 diabetes mellitus (Chronic) Tobacco dependence (Chronic) Surgical History: cholecystectomy, hysterectomy, - - Bilateral breast biopsy, left ankle surgery, left toe amputation, right wrist surgery. 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 Paternal History Items: Heart Disease, Hypertension Lives: Spouse/ Significant Other Smoking Status: Current every day smoker Tobacco Use: Cigarettes Alcohol: None Drugs: None Review of Systems - Review of Systems General: Denies: Fever, Chills HEENT: Denies: Head Aches Cardiovascular: Reports: Shortness of Breath at Rest. Denies: Chest Discomfort, Chest Discomfort at Rest, Chest Discomfort with Exertion, Orthopnea, PND, Peripheral Edema, Palpitations Gastrointestinal: Denies: Abdominal Discomfort, Jaundice, Nausea, Emesis Neurological: Denies: History of TIA, History of CVA Hematologic/ Lymphatic: Denies: Easy Brusing, Easy Bleeding Subjectve: Comfortable. No apparent distress. Objective: Vital Signs Temp Pulse Resp BP Pulse Ox 97.8 F 82 19 H 150/77 H 94 05/31/19 06:36 05/31/19 10:02 05/31/19 06:48 05/31/19 06:36 05/31/19 09:50 Oxygen Flow Rate (L/min) 2 Oxygen Delivery Method Room Air Weight: 65.1 kg Body Mass Index (BMI) 24.7 Intake and Output for Last 24 Hours 05/29/19 05/30/19 05/31/19 23:59 23:59 23:59 Intake Total 550 / 770 770 / 770 Output Total 2350 / 2750 400 / 400 Balance -1800 / -1980 370 / 370 General: Awake, Alert, Oriented x 3 HEENT: Atraumatic, Normocephalic Oral: Moist Mucosa Neck: Supple, No JVD Lungs: Clear to auscultation Cardiovascular: Regular Rhythm, Normal S1, Normal S2 Vascular: No Carotid Bruits Abdomen: Bowel Sounds Present, Soft Extremities: No edema Neurological: No Focal Motor or Sensory Deficit Psych/Mental Status: Appropriate 05/31/19 00:25: Troponin I 5.140 H* 05/31/19 03:30: Troponin I 3.750 H* 05/31/19 05:53: Sodium 143, Potassium 3.6, Chloride 103, Carbon Dioxide 30.0, Anion Gap 10, BUN 24 H, Creatinine 1.02, Est GFR (MDRD) Af Amer 69, Est GFR (MDRD) Non-Af 57 L, BUN/Creatinine Ratio 23.5 H, Glucose 170 H, Calcium 8.6, Troponin I 3.090 H*, Triglycerides 133, Cholesterol 107, LDL Cholesterol 29, VLDL Cholesterol 27, HDL Cholesterol 51 05/31/19 05:53: Troponin I Cancelled, Triglycerides Cancelled, Cholesterol Cancelled, LDL Cholesterol Cancelled, VLDL Cholesterol Cancelled, HDL Cholesterol Cancelled Rhythm: Normal sinus rhythm EKG: Normal sinus rhythm. Nonspecific ST-T changes. Mildly prolonged QT interval. ECHO: Ejection fraction 40 to 45%. Severe inferior posterior hypokinesis Stress Test: Cardiac Cath: PCI: CT Surgery: Holter monitor: EPS: PPM: CXR: Chest CT Scan: Assessment/Plan 1. Non-ST elevation myocardial infarction. Agree with aspirin. Patient is already on Lovenox. Loaded with clopidogrel. Continue beta-blockers. Nitrates. Recommend cardiac catheterization with coronary angiography and possible revascularization. Risks benefits and alternatives discussed with patient. She understands and wishes to proceed. We will schedule her for the procedure for this coming Sunday. If she has recurrent symptoms in the interim, then we may consider urgent angiography. 2. History of hypertension. 3. History of diabetes mellitus. 4. History of nicotine dependence. 5. Lipid management as per internal medicine.
--- NOTE | 2019-05-31 12:55 | PCM.PROGNOTE ---
Patient Problems: Active and Suspected Problems NSTEMI (non-ST elevated myocardial infarction) (Acute) Subjective: Patient seen and examined. Reports improvement in breathing. Denies further cough. Denies chest pain. Cardiology consulted due to elevated troponin, plan for cardiac catheterization on Sunday. - Physical Exam General: Alert, Oriented x3, Cooperative HEENT: Atraumatic, PERRLA, EOMI, Normocephalic Neck: Supple, No JVD, Negative Carotid Bruits Lungs: Clear to auscultation, Diminished Cardiovascular: Regular rate, Regular Rhythm, Normal S1, Normal S2, No murmurs Abdomen: Bowel Sounds Present, Soft, Non Tender, Non-Distended Extremities: No clubbing, No cyanosis, No edema, Capillary Refill Less than 3 Seconds Skin: No rashes, No breakdown Musculoskeletal: No Tenderness to Palpation of Joints or Extremities Neurological: Cranial nerves II-XII grossly intact, Neuro grossly intact Psych/Mental Status: Normal Affect, Appropriate Vital Signs Temp Pulse Resp BP Pulse Ox 97.8 F 82 19 H 150/77 H 94 05/31/19 06:36 05/31/19 10:02 05/31/19 06:48 05/31/19 06:36 05/31/19 09:50 Oxygen Flow Rate (L/min) 2 Oxygen Delivery Method Room Air Weight: 143 lb 8.335 oz Body Mass Index (BMI) 24.7 Intake and Output for Last 24 Hours 05/29/19 05/30/19 05/31/19 23:59 23:59 23:59 Intake Total 550 / 770 770 / 770 Output Total 2350 / 2750 400 / 400 Balance -1800 / -1979 370 / 370 Microbiology Past 72 Hours 05/30/19 12:37 Respiratory Panel (PCR) - Final Mucosa - Nasopharyngeal Laboratory Tests Past 24 Hrs 05/31/19 05/31/19 05/31/19 00:25 03:30 05:53 Sodium 143 Potassium 3.6 Chloride 103 Carbon Dioxide 30.0 Anion Gap 10 BUN 24 H Creatinine 1.02 Estim Creat Clear Calc 44.86 Est GFR (MDRD) Af Amer 69 Est GFR (MDRD) Non-Af 57 L BUN/Creatinine Ratio 23.5 H Glucose 170 H Calcium 8.6 Troponin I 5.140 H* 3.750 H* 3.090 H* Triglycerides 133 Cholesterol 107 LDL Cholesterol 29 VLDL Cholesterol 27 HDL Cholesterol 51 05/31/19 05:53 Sodium Potassium Chloride Carbon Dioxide Anion Gap BUN Creatinine Estim Creat Clear Calc Est GFR (MDRD) Af Amer Est GFR (MDRD) Non-Af BUN/Creatinine Ratio Glucose Calcium Troponin I Cancelled Triglycerides Cancelled Cholesterol Cancelled LDL Cholesterol Cancelled VLDL Cholesterol Cancelled HDL Cholesterol Cancelled POC Glucose 05/31/19 05/31/19 05/30/19 12:22 06:49 22:11 POC Glucose 253 H 161 H 136 H 05/30/19 16:10 POC Glucose 363 H Medical Necessity - Tobacco Use Smoking Status: Current every day smoker Tobacco Use: Cigarettes Assessment/Plan All Active Problems NSTEMI (non-ST elevated myocardial infarction) (Acute) 1. Acute hypoxic respiratory failure, suspected multifactorial due to new onset CHF and presumed COPD exacerbation-continue supplement oxygen to maintain O2 at or above 90%. Initially placed on BiPAP in ER. Oxygen stable on room air. Albuterol and DuoNeb aerosols. 2. New onset systolic CHF-BNP 786. Chest x-ray admission consistent with CHF. Discontinue IV Lasix 20 mg every 8 hours. Transition to oral Lasix. Strict I&O. Daily weight. Echocardiogram shows an EF of 40%, severe inferior posterior hypokinesis, pulmonary artery systolic pressure 43 mmHg, moderate mitral valve deficiency. Repeat chest x-ray appears improved from prior. 3. Suspected COPD exacerbation-patient with recent URI. Denies history of COPD however has extensive tobacco use history and prior imaging with emphysema. Albuterol and DuoNeb aerosols. IV Solu-Medrol. Respiratory panel negative. Recommend outpatient follow-up with pulmonary medicine for pulmonary function testing. 4. NSTEMI-EKG without ST-T changes. Cardiology consult placed. Loaded with Plavix. Continue aspirin, statin, metoprolol, isosorbide. Patient will undergo cardiac catheterization Sunday. 5. Hypertension-continue home isosorbide, lisinopril, metoprolol regimen. 6. Hyperlipidemia-continue statin. 7. Tobacco dependence-encouraged smoking cessation. Nicotine replacement patch if desired. 8. Type 2 diabetes mellitus-hold home pioglitazone. Accu-Cheks ACHS with SSI. Patient's glucose elevated on admission which is suspected secondary to recent steroid use. DVT prophylaxis-Lovenox subcu This patient was seen by EARLE Navarro under the supervision of Dr. Corley.
[2019-05-31] MEDS: Nitroglycerin Oint 1 INCH PACKET TRANSDERM. ×2 (14:08→23:43)
[2019-05-31] MEDS: Clopidogrel Bisulfate 300 MG Tablet PO (14:08)
[2019-05-31] MEDS: Furosemide 20 MG Tablet PO (17:04)
[2019-05-31 17:16] LABS: Bedside Glucose 166 mg/dL (70-110)
[2019-05-31 17:22] LABS: Hemoglobin A1c 7.4 % (4.2-6.3)
[2019-05-31] MEDS: Atorvastatin Calcium 80 MG Tablet PO (21:12)
[2019-05-31 22:40] LABS: Bedside Glucose 183 mg/dL (70-110)
[2019-06-01] VITALS (13 sets, daily range): BP systolic 151–173; BP diastolic 88–97; PULSE 54–77; RESP 16–18; TEMP 36.6–37.2; O2SAT 95–99
[2019-06-01] MEDS: Nitroglycerin Oint 1 INCH PACKET TRANSDERM. ×4 (05:45→23:57)
[2019-06-01] MEDS: Insulin Lispro 100 UNIT/ML INSULN.PEN SC ×3 (07:09→22:04)
[2019-06-01] MEDS: Clopidogrel Bisulfate 75 MG Tablet PO (09:11)
[2019-06-01] MEDS: Furosemide 20 MG Tablet PO ×2 (09:11→11:35)
[2019-06-01] MEDS: Metoprolol Tartrate 100 MG Tablet PO ×2 (09:11→22:03)
[2019-06-01] MEDS: Lisinopril 5 MG Tablet PO ×2 (09:11→22:03)
[2019-06-01] MEDS: Aspirin 81 MG TAB.CHEW PO (09:11)
[2019-06-01] MEDS: metFORMIN HCl 1,000 MG Tablet 1000 MG PO (09:11)
[2019-06-01] MEDS: Enoxaparin 40 MG/0.4 ML Syringe SC (09:12)
--- NOTE | 2019-06-01 09:43 | PN_ITS ---
Patient Problems: Active and Suspected Problems NSTEMI (non-ST elevated myocardial infarction) (Acute) Subjective: Patient seen and examined. Denies chest pain overnight. Shortness of breath resolved. Plan for cardiac catheterization in the morning, patient denies questions or concerns. - Physical Exam General: Alert, Oriented x3, Cooperative HEENT: Atraumatic, PERRLA, EOMI, Normocephalic Neck: Supple, No JVD, Negative Carotid Bruits Lungs: Clear to auscultation, Diminished Cardiovascular: Regular rate, Regular Rhythm, Normal S1, Normal S2, No murmurs Abdomen: Bowel Sounds Present, Soft, Non Tender, Non-Distended Extremities: No clubbing, No cyanosis, No edema, Capillary Refill Less than 3 Seconds Skin: No rashes, No breakdown Musculoskeletal: No Tenderness to Palpation of Joints or Extremities Neurological: Cranial nerves II-XII grossly intact, Neuro grossly intact Psych/Mental Status: Normal Affect, Appropriate Vital Signs Temp Pulse Resp BP Pulse Ox 98.2 F 77 18 158/88 H 96 06/01/19 05:40 06/01/19 09:11 06/01/19 05:40 06/01/19 05:40 06/01/19 05:40 Oxygen Flow Rate (L/min) 2 Oxygen Delivery Method Room Air Weight: 143 lb 15.39 oz Body Mass Index (BMI) 24.7 Intake and Output for Last 24 Hours 05/30/19 05/31/19 06/01/19 23:59 23:59 23:59 Intake Total 550 / 770 1250 / 1490 240 / 240 Output Total 2350 / 2750 400 / 700 300 / 300 Balance -1800 / -1980 850 / 790 -60 / -60 Microbiology Past 72 Hours 05/30/19 12:37 Respiratory Panel (PCR) - Final Mucosa - Nasopharyngeal Laboratory Tests Past 24 Hrs 05/31/19 05:53 Hemoglobin A1c 7.4 H POC Glucose 05/31/19 05/31/19 05/31/19 21:11 16:59 12:22 POC Glucose 183 H 166 H 253 H Medical Necessity - Tobacco Use Smoking Status: Current every day smoker Tobacco Use: Cigarettes Assessment/Plan All Active Problems NSTEMI (non-ST elevated myocardial infarction) (Acute) 1. Acute hypoxic respiratory failure, suspected multifactorial due to new onset CHF and presumed COPD exacerbation-continue supplement oxygen to maintain O2 at or above 90%. Initially placed on BiPAP in ER. Oxygen stable on room air. Albuterol and DuoNeb aerosols. 2. New onset systolic CHF-BNP 786. Chest x-ray admission consistent with CHF. IV Lasix discontinued. Continue oral Lasix 40mg daily. Strict I&O. Daily weight. Echocardiogram shows an EF of 40%, severe inferior posterior hypokinesis, pulmonary artery systolic pressure 43 mmHg, moderate mitral valve deficiency. Repeat chest x-ray improved from prior. 3. Suspected COPD exacerbation-patient with recent URI. Denies history of COPD however has extensive tobacco use history and prior imaging with emphysema. Albuterol and DuoNeb aerosols. DC IV Solu-Medrol. Respiratory panel negative. Recommend outpatient follow-up with pulmonary medicine for pulmonary function testing. Transition to oral prednisone 40mg X5 days. 4. NSTEMI-EKG without ST-T changes. Cardiology consult placed. Continue asp irin, plavix, statin, metoprolol, isosorbide. Patient will undergo cardiac catheterization Sunday. 5. Hypertension-continue home isosorbide, lisinopril, metoprolol regimen. 6. Hyperlipidemia-continue statin. 7. Tobacco dependence-encouraged smoking cessation. Nicotine replacement patch if desired. 8. Type 2 diabetes mellitus-hold home pioglitazone. Accu-Cheks ACHS with SSI. Patient's glucose elevated on admission which is suspected secondary to recent steroid use. DVT prophylaxis-Lovenox subcu This patient was seen by EARLE Navarro under the supervision of Dr. Corley.
--- NOTE | 2019-06-01 10:54 | PCM.PN.CARD ---
Subjectve: No complaints. No chest pain or shortness of breath. Objective: Vital Signs Temp Pulse Resp BP Pulse Ox 98.2 F 77 18 158/88 H 96 06/01/19 05:40 06/01/19 09:11 06/01/19 05:40 06/01/19 05:40 06/01/19 05:40 Oxygen Flow Rate (L/min) 2 Oxygen Delivery Method Room Air Weight: 65.3 kg Body Mass Index (BMI) 24.7 Intake and Output for Last 24 Hours 05/30/19 05/31/19 06/01/19 23:59 23:59 23:59 Intake Total 550 / 770 1250 / 1490 240 / 240 Output Total 2350 / 2750 400 / 700 300 / 300 Balance -1800 / -1980 850 / 790 -60 / -60 General: Healthy Appearing, Awake, Alert, Oriented x 3, No Acute Distress Neck: Supple Lungs: Clear to auscultation Cardiovascular: Regular Rhythm, Normal S1, Normal S2 Abdomen: Bowel Sounds Present, Soft Extremities: No edema 05/31/19 05:53: Hemoglobin A1c 7.4 H Rhythm: EKG: ECHO: Stress Test: Cardiac Cath: PCI: CT Surgery: Holter monitor: EPS: PPM: CXR: Chest CT Scan: Medical Necessity - Tobacco Use Smoking Status: Current every day smoker Tobacco Use: Cigarettes Assessment/Plan 1. Non-ST elevation myocardial infarction. Asymptomatic. Continue current medications. Echocardiogram with inferior posterior hypokinesis. For cardiac catheterization with coronary angiography and possible revascularization in the morning. 2. History of hypertension. Blood pressure not optimally controlled. Increase lisinopril to 5 mg twice daily. 3. History of diabetes mellitus. 4. History of nicotine dependence. Counseled to quit 5. Lipid management as per internal medicine.
[2019-06-01 11:26] LABS: Bedside Glucose 199 mg/dL (70-110)
[2019-06-01 12:20] LABS: Bedside Glucose 222 mg/dL (70-110)
[2019-06-01 16:46] LABS: Bedside Glucose 112 mg/dL (70-110)
[2019-06-01] MEDS: Atorvastatin Calcium 80 MG Tablet PO (22:03)
[2019-06-01 22:25] LABS: Bedside Glucose 212 mg/dL (70-110)
[2019-06-01] MEDS: 0.9% NaCl Peripheral Flush Adult/Peds IV (22:30)
[2019-06-01 23:22] LABS: Bacteria 0 SEEN /hpf (None Seen); Mucous, Urine 0 SEEN /hpf (<or=2+); Squamous Epithelial Cells - UA 0 SEEN /hpf (5-10)
[2019-06-01 23:24] LABS: Color, Urine Straw (Yellow); Glucose, Dipstick Normal (Normal); Ketone-Dipstick Negative (Negative); Leukocyte Esterase-Dipstick 25 /ul (Negative); Nitrite-Dipstick Negative (Negative); Occult Blood-Urine 10 /ul (Negative); Protein-Dipstick Negative (Negative); Urine Bilirubin Dipstick Negative (Negative); Urine Clarity Clear (Clear); Urine Urobilinogen Normal (Normal)
[2019-06-01 23:30] LABS: Red Blood Cells-Urine 0-5 SEEN /hpf (0-5); White Blood Cells 0-5 SEEN /hpf (0-5)
[2019-06-02] VITALS (16 sets, daily range): BP systolic 129–174; BP diastolic 74–96; PULSE 53–65; RESP 12–17; TEMP 36.8–36.9; O2SAT 92–97
[2019-06-02] MEDS: Nitroglycerin Oint 1 INCH PACKET TRANSDERM. (05:27)
[2019-06-02] MEDS: Metoprolol Tartrate 100 MG Tablet PO (05:27)
[2019-06-02] MEDS: Lisinopril 5 MG Tablet PO (05:27)
[2019-06-02] MEDS: 0.9% NaCl Peripheral Flush Adult/Peds IV (05:27)
[2019-06-02] MEDS: Clopidogrel Bisulfate 75 MG Tablet PO (05:27)
[2019-06-02] MEDS: Aspirin 81 MG TAB.CHEW PO (05:27)
[2019-06-02 05:56] LABS: Hematocrit 46.4 % (37-47); Hemoglobin 15.3 g/dL (12.0-15.0); Mean Corpuscular Hgb 29.5 pg (27.0-32.0); Mean Corpuscular Volume 89.4 fL (81-99); Mean Platelet Vol. 9.7 fl (6.2-12.0); Platelet Count 251 K/mm3 (150-450); RBC Distribution Width CV 16.5 % (11.6-14.6); RBC Distribution Width SD 53.5 fl (35.1-43.9); Red Blood Count 5.19 M/mm3 (4.2-5.4); White Blood Count 13.9 K/mm3 (4.4-11.0)
[2019-06-02 06:04] LABS: Partial Thromboplast Time 25.5 Seconds (24.1-36.2); Prothrombin Time (Protime)PT. 12.7 SECONDS (11.7-14.9)
[2019-06-02 06:16] LABS: Anion Gap 10 (5-15); BUN 38 mg/dL (7-18); BUN/Creat Ratio 43.1 RATIO (10-20); Calcium,Total 8.8 mg/dL (8.5-10.1); Chloride 99 mmol/L (98-107); Creatinine, Serum 0.88 mg/dL (0.55-1.02); EST Glomerular Filtration Rate 67 mL/min (>60); Est Glom Filt Rate - Afr Amer 81 mL/min (>60); Glucose 148 mg/dL (74-106); Potassium 3.4 mmol/L (3.5-5.1); Sodium Level 139 mmol/L (136-145)
--- NOTE | 2019-06-02 07:00 | NURSING ---
REPORT CALLED TO RN CLINICAL DOCUMENTATION SPECIALIST
--- NOTE | 2019-06-02 08:00 | PN.CARD_ITS ---
Subjectve: Patient seen and evaluated. Underwent cardiac catheterization this morning. Objective: Vital Signs Temp Pulse Resp BP Pulse Ox 98.2 F 58 L 16 174/86 H 95 06/02/19 05:30 06/02/19 07:00 06/02/19 05:30 06/02/19 05:30 06/02/19 05:30 Oxygen Flow Rate (L/min) 2 Oxygen Delivery Method Room Air Weight: 143 lb 15.39 oz Body Mass Index (BMI) 24.7 Intake and Output for Last 24 Hours 05/31/19 06/01/19 06/02/19 23:59 23:59 23:59 Intake Total 1250 / 1490 960 / 1006 46 / 46 Output Total 400 / 700 600 / 1000 1000 / 1000 Balance 850 / 790 360 / 6 -954 / -954 General: Awake, Alert, Oriented x 3 HEENT: PERRL, EOMI, Sclera Non Icteric Neck: Supple, Good ROM, No Lymph Node Enlargement Lungs: Clear to auscultation Cardiovascular: Regular Rhythm, Normal S1, Normal S2, No Murmurs, No Rubs, No Gallops Vascular: No Carotid Bruits, Normal Femoral Pulses, Normal Radial Pulses, Normal Dorsalis Pedal Pulse, Normal Posterior Tibial Pulses Abdomen: Bowel Sounds Present, Soft, Non Tender, No HSM, No Organomegaly Extremities: No Cyanosis, No Clubbing, No edema Musculoskeletal: No Erythema Lymphatic: No Lymph Node Enlargement Neurological: No Focal Motor or Sensory Deficit 06/01/19 20:43: Urine Color Straw, Urine Clarity Clear, Urine pH 6.0, Ur Specific [place] 1.010, Urine Protein Negative, Urine Glucose (UA) Normal, Urine Ketones Negative, Urine Occult Blood 10 H, Urine Nitrite Negative, Urine Bilirubin Negative, Urine Urobilinogen Normal, Ur Leukocyte Esterase 25 H, Urine RBC 0-5 SEEN, Urine WBC 0-5 SEEN 06/02/19 05:00: Sodium 139, Potassium 3.4 L, Chloride 99, Carbon Dioxide 30.0, Anion Gap 10, BUN 38 H, Creatinine 0.88, Est GFR (MDRD) Af Amer 81, Est GFR (MDRD) Non-Af 67, BUN/Creatinine Ratio 43.1 H, Glucose 148 H, Calcium 8.8 06/02/19 05:00: WBC 13.9 H, RBC 5.19, Hgb 15.3 H, Hct 46.4, MCV 89.4, MCH 29.5, MCHC 33.0, Plt Count 251, MPV 9.7 06/02/19 05:00: PT 12.7, INR 1.0, APTT 25.5 Rhythm: EKG: ECHO: Stress Test: Cardiac Cath: PCI: CT Surgery: Holter monitor: EPS: PPM: CXR: Chest CT Scan: Medical Necessity - Tobacco Use Smoking Status: Current every day smoker Tobacco Use: Cigarettes Assessment/Plan 1. Non-ST elevation myocardial infarction. * Patient underwent cardiac catheterization this morning we demonstrated the following * Normal calcified left main coronary artery * Left anterior descending artery with mid segment 60% stenosis in first diag onal vessel with 50% stenosis * Left circumflex artery with proximal subtotal occlusion and left to left collaterals and [id number] collaterals * Dominant right coronary artery which is totally occluded with [id number] collaterals * Severe left ventricular systolic dysfunction with estimated ejection fraction of 30% and left ventricular end-diastolic pressure of 15 with 2+ mitral regurgitation * Based on the above angiographic findings would consider evaluation for coronary artery bypass surgery. * 2. Congestive heart failure * Above likely secondary to systolic dysfunction, coronary artery disease, mitral regurgitation. * Continue beta-jean * Continue RHYS inhibitor * Continue diuretic * Would recommend mitral valve surgery * Would recommend ultimate transfer today or tomorrow to a tertiary care facility.
[2019-06-02 10:50] LABS: Bedside Glucose 149 mg/dL (70-110)
--- NOTE | 2019-06-02 11:01 | CL.D_ITS ---
Patient Name: MARTHA ESTEVES Study Date: 06/02/2019 Performing: Evin Estrella MD Ht: 65 inches 165 cm : 1945 Wt: 143.5 lbs 65 kg Age: 74 Gender: female BSA: 1.72 PROCEDURE(S) PERFORMED [id number] CLINICAL PROFILE AND INDICATIONS Indications: Suspected CAD Heart Failure: NYHA Class: 3, Newly Diagnosed: Yes, Heart Failure Type: Systolic Stress/Imaging Stress/Image Study Performed: No CONCLUSIONS Totally occluded right coronary artery, subtotally occluded left circumflex artery, moderate disease noted in the left anterior descending artery, left to right collaterals, moderate mitral regurgitatio n, depressed left ventricular systolic function. RECOMMENDATIONS Surgery consult for coronary revascularization Surgery consult for valvular disease DESCRIPTION OF PROCEDURE The patient arrived to the procedure lab. The risks and benefits of the procedure as well as a full d escription of our services here and current unavailability of surgical backup were fully explained to the patient and/or their significant other prior to the catheterization. The Timeout was completed, verifying the correct patient and procedure. The patient's procedural site was prepped and draped in the usual fashion. Local anesthetic was given subcutaneously to right groin region with Lidocaine 2%. Using a modified Seldinger technique, arterial access was obtained via the right femoral artery, a 5 Fr sheath was inserted. Left Coronary Artery selective angiography was performed in multiple views u sing a 5 Fr. JL4 catheter. Right Coronary Artery selective angiography was then performed in multiple views using a 5 Fr. 3DRC (Douglas) catheter. Left Ventriculography was performed in SHRESTHA projection using a 5 Fr. Pigtail catheter. LV to AO pullback pressures were then recorded.The arterial sheath was pulled and manual compression applied until hemostasis is achieved. CORONARY ANGIOGRAPHY DOMINANCE: Right Dominant LEFT HEART ASSESSMENT Left Ventricular Ejection Fraction: by LV Gram 30 % Inferior Basal Akinesis Depressed Left Ventricular systolic function LEFT MAIN: Mild calcification, 30 % Stenosis LEFT ANTERIOR DESCENDING ARTERY: MID LAD: 60 % Stenosis DISTAL LAD: 50 % Stenosis DIAGONAL 1: Ostial - 70 % Stenosis CIRCUMFLEX ARTERY: PROX CIRC: is occluded RIGHT CORONARY ARTERY: PROX RCA: is occluded COLLATERAL FLOW: Collateral flow from Left to Left Collateral flow from Left to Right VALVE FINDINGS: Mitral Valve Insufficiency - Grade 3 COMPLICATIONS No Complications PROCEDURE MEDICATIONS Versed 1 mg IV Oxygen: 2 L/min via nasal cannula SUMMARY OF HEMODYNAMIC DATA Time AIR REST ECG 07:28:38 AO 172/97 (125) SA 07:44:08 LV 172/8, 11 07:51:40 LV 166/6, 11 07:51:47 LV 160/7, 8 07:52:47 LV 164/10, 15 07:52:53 LVp 164/6, 15 07:52:57 AOp 167/82 (119) 07:53:02 Signed By Evin Estrella MD On 06/02/2019 10:59:52 AM Evin Estrella MD
[2019-06-02 11:25] LABS: Bedside Glucose 175 mg/dL (70-110)
--- NOTE | 2019-06-02 12:12 | DS.PCM_ITS ---
Discharge Date and Diagnosis Date of Admission: 05/30/19 Date of Discharge: 06/02/19 - Primary Discharge Diagnosis Active and Suspected Problems (Last Updated 06/02/19 @ 11:49 by Brittani Guzman) 1. NSTEMI/Severe CAD 2. Acute hypoxic respiratory failure, suspected multifactorial due to new onset CHF and presumed COPD exacerbation 3. New onset systolic CHF 4. Suspected COPD exacerbation 5. Hypertension 6. Hyperlipidemia 7. Tobacco dependence 8. Type 2 diabetes mellitus - Secondary Discharge Diagnosis Chronic Problems (Last Updated 06/02/19 @ 11:49 by Brittani Guzman) Secondary pulmonary arterial hypertension (Chronic) Nonrheumatic mitral (valve) insufficiency (Chronic) Atherosclerotic heart disease [place] coronary artery w/angina pectoris (Chronic) Nicotine dependence (Chronic) Essential (primary) hypertension (Chronic) Type 2 diabetes mellitus (Chronic) Hospital Course and Treatment Imaging Results: Diagnostic Data Chest X-Ray 05/31/19 05:55 IMPRESSION: Favorable change. Resolution of interstitial edema/CHF. Electronically Signed: Jose Rae MD at 13:48 EDT , Service support , Diagnostic Data Chest X-Ray 05/31/19 05:55 IMPRESSION: Favorable change. Resolution of interstitial edema/CHF. Electronically Signed: oJse Rae MD at 13:48 EDT , Service support , Dr. Murillo- Cardiology Operations: None Procedures: 2-D Echocardiogram, Cardiac catheterization Summary of Care Provided: The patient is a 74 year old F admitted 05/30/2019 due to shortness of breath, cough. 1. Acute hypoxic respiratory failure, suspected multifactorial due to new onset CHF and presumed COPD exacerbation-continue supplement oxygen to maintain O2 at or above 90%. Initially placed on BiPAP in ER. Oxygen stable on room air. Albuterol and DuoNeb aerosols. 2. New onset systolic CHF-BNP 786. Chest x-ray admission consistent with CHF. IV Lasix discontinued. Continue oral Lasix 40mg daily. Strict I&O. Daily weight. Echocardiogram shows an EF of 40%, severe inferior posterior hypokinesis, pulmonary artery systolic pressure 43 mmHg, moderate mitral valve deficiency. Repeat chest x-ray improved from prior. 3. Suspected COPD exacerbation-patient with recent URI. Denies history of COPD however has extensive tobacco use history and prior imaging with emphysema. Albuterol and DuoNeb aerosols. DC IV Solu-Medrol. Respiratory panel negative. Recommend outpatient follow-up with pulmonary medicine for pulmonary function testing. 4. NSTEMI/CAD-EKG without ST-T changes. Continue aspirin, plavix, statin, metoprolol, isosorbide. Patient underwent cardiac catheterization which demonstrated totally occluded right coronary artery, subtotally occluded left circumflex artery, moderate disease noted in the left anterior descending artery, left to right collaterals, moderate mitral regurgitation, depressed left ventricular systolic function with EF 30%. Given multivessel disease, recommend ation was to transfer to tertiary facility for surgical consult for coronary revascularization and consult for valvular disease. Patient to be transferred to [facility] for further evaluation. 5. Hypertension-continue home isosorbide, lisinopril, metoprolol regimen. 6. Hyperlipidemia-continue statin. 7. Tobacco dependence-encouraged smoking cessation. 8. Type 2 diabetes mellitus-hold home pioglitazone. Accu-Cheks ACHS with SSI. General: Alert, Oriented x3, Cooperative HEENT: Atraumatic, PERRLA, EOMI, Normocephalic Neck: Supple, No JVD, Negative Carotid Bruits Lungs: Clear to auscultation, Diminished Cardiovascular: Regular rate, Regular Rhythm, Normal S1, Normal S2, No murmurs Abdomen: Bowel Sounds Present, Soft, Non Tender, Non-Distended Extremities: No clubbing, No cyanosis, No edema, Capillary Refill Less than 3 Seconds Skin: No rashes, No breakdown Musculoskeletal: No Tenderness to Palpation of Joints or Extremities Neurological: Cranial nerves II-XII grossly intact, Neuro grossly intact Psych/Mental Status: Normal Affect, Appropriate Patient seen and examined prior to discharge. Physical assessment as noted above. Patient stable at time of transfer. This patient was seen by EARLE Navarro under the supervision of Dr. Corley. - Physical Exam Vital Signs Temp Pulse Resp BP Pulse Ox 98.5 F 56 L 16 142/88 H 94 06/02/19 09:13 06/02/19 11:40 06/02/19 11:40 06/02/19 11:40 06/02/19 11:40 Oxygen Flow Rate (L/min) 2 Oxygen Delivery Method Room Air Weight: 143 lb 15.39 oz Body Mass Index (BMI) 24.7 Intake and Output for Last 24 Hours 05/31/19 06/01/19 06/02/19 23:59 23:59 23:59 Intake Total 1250 / 1490 960 / 1006 46 / 46 Output Total 400 / 700 600 / 1000 1400 / 1400 Balance 850 / 790 360 / 6 -1354 / -1354 Microbiology Past 72 Hours 05/30/19 12:37 Respiratory Panel (PCR) - Final Mucosa - Nasopharyngeal Laboratory Tests Past 24 Hrs 06/01/19 06/02/19 06/02/19 20:43 05:00 05:00 WBC 13.9 H RBC 5.19 Hgb 15.3 H Hct 46.4 MCV 89.4 MCH 29.5 MCHC 33.0 RDW Std Deviation 53.5 H RDW Coeff of Musa 16.5 H Plt Count 251 MPV 9.7 PT INR APTT Sodium 139 Potassium 3.4 L Chloride 99 Carbon Dioxide 30.0 Anion Gap 10 BUN 38 H Creatinine 0.88 Estim Creat Clear Calc 52.00 Est GFR (MDRD) Af Amer 81 Est GFR (MDRD) Non-Af 67 BUN/Creatinine Ratio 43.1 H Glucose 148 H Calcium 8.8 Urine Color Straw Urine Clarity Clear Urine pH 6.0 Ur Specific [place] 1.010 Urine Protein Negative Urine Glucose (UA) Normal Urine Ketones Negative Urine Occult Blood 10 H Urine Nitrite Negative Urine Bilirubin Negative Urine Urobilinogen Normal Ur Leukocyte Esterase 25 H Urine RBC 0-5 SEEN Urine WBC 0-5 SEEN Ur Squamous Epith Cells 0 SEEN Urine Bacteria 0 SEEN Urine Mucus 0 SEEN 06/02/19 05:00 WBC RBC Hgb Hct MCV MCH MCHC RDW Std Deviation RDW Coeff of Musa Plt Count MPV PT 12.7 INR 1.0 APTT 25.5 Sodium Potassium Chloride Carbon Dioxide Anion Gap BUN Creatinine Estim Creat Clear Calc Est GFR (MDRD) Af Amer Est GFR (MDRD) Non-Af BUN/Creatinine Ratio Glucose Calcium Urine Color Urine Clarity Urine pH Ur Specific [place] Urine Protein Urine Glucose (UA) Urine Ketones Urine Occult Blood Urine Nitrite Urine Bilirubin Urine Urobilinogen Ur Leukocyte Esterase Urine RBC Urine WBC Ur Squamous Epith Cells Urine Bacteria Urine Mucus POC Glucose 06/02/19 06/02/19 06/01/19 10:42 06:39 22:02 POC Glucose 149 H 175 H 212 H 06/01/19 06/01/19 16:36 11:34 POC Glucose 112 H 222 H Home Medications: Medications to take at Discharge Aspir-Low 1 tab PO DAILY 02/05/17 Atorvastatin Calcium 1 tab PO DAILY 02/05/17 Glimepiride [Amaryl] 1 tab PO BID 02/05/17 Isosorbide Mononitrate [Isosorbide Mononitrate ER] 1 tab PO DAILY 02/05/17 Lisinopril 1 tab PO DAILY 02/05/17 Metoprolol Tartrate [Lopressor (Beta Janel)] 100 mg PO BID 02/05/17 metFORMIN HCl [Glucophage] 1 tab PO BID 02/05/17 Albuterol Sulfate [Ventolin Hfa] 2 inhaler PO Q4H PRN 05/30/19 Doxycycline Hyclate 100 mg PO DAILY 05/30/19 Fluticasone Propionate 1 spray NASAL BID 05/30/19 Pioglitazone HCl 15 mg PO DAILY 05/30/19 Prednisone 10 mg PO DAILY 05/30/19 Primary Care Physician: Serafin Juan Chi, MD [Primary Care Provider] - Disposition: Acute care Hospital Minutes spent on discharge:: 35 Patient Condition:: Stable Medical Necessity - Tobacco Use Smoking Status: Current every day smoker Tobacco Use: Cigarettes Meaningful Use Info Meaningful Use Diagnoses (Choose all that apply): AMI - AMI Aspirin given w/in 24hrs of arrival?: Yes ASA at discharge?: Yes Statins at discharge?: Yes Nagi/ARB at discharge?: Yes Beta Janel at discharge?: Yes Done w/ Acute [place] measure.: Yes Documented LVEF (%): 30
[2019-06-02] MEDS: Furosemide 40 MG Tablet PO (14:15)
--- NOTE | 2019-06-02 15:07 | NURSING ---
report called to Jennyfer WARE at [facility]
== END 2019-06-02 16:55 | disposition short-term general hospital (02) | DRG 280 ==
LOC: ED 08:50 → PCU 12:28
PROVIDERS: Hospitalist; Internal Medicine Cardiovascular Disease; Nurse Practitioner Family; Admitting Provider Internal Medicine; Emergency Provider Emergency Medicine; Family Provider Family Medicine Geriatric Medicine; PCP Family Medicine Geriatric Medicine; Visit Provider Internal Medicine
DX: I21.4 Non-ST elevation (NSTEMI) myocardial infarction (principal); J96.01 Acute respiratory failure with hypoxia; J44.1 Chronic obstructive pulmonary disease with (acute) exacerbation; I50.20 Unspecified systolic (congestive) heart failure; I11.0 Hypertensive heart disease with heart failure; E78.5 Hyperlipidemia, unspecified; E11.9 Type 2 diabetes mellitus without complications; Z79.84 Long term (current) use of oral hypoglycemic drugs; Z79.82 Long term (current) use of aspirin; F17.210 Nicotine dependence, cigarettes, uncomplicated; I25.10 Atherosclerotic heart disease of native coronary artery without angina pectoris; I34.0 Nonrheumatic mitral (valve) insufficiency; I27.21 Secondary pulmonary arterial hypertension
CPT/HCPCS: 36415; 71045; 80048; 80061; 81001; 82962; 83036; 83880; 84484; 85025; 85027; 85610; 85730; 87633; 93005; 93306; 93458; 94002; 94640; 99152; 99153; 99251; 99285; 99406; J7030; Q9967; A4216; C1769; C1894; G0463; J1940

== ENCOUNTER → 2019-07-15 12:15 | Outpatient (CLI) | payer MEDICARE, SELFPAY ==
[2019-05-30 11:51] VITALS: BMI 24.7
[2019-07-15 15:18] LABS: Anion Gap 8 (5-15); BUN 22 mg/dL (7-18); BUN/Creat Ratio 17.3 RATIO (10-20); Calcium,Total 8.8 mg/dL (8.5-10.1); Chloride 105 mmol/L (98-107); Creatinine, Serum 1.27 mg/dL (0.55-1.02); EST Glomerular Filtration Rate 44 mL/min (>60); Est Glom Filt Rate - Afr Amer 53 mL/min (>60); Glucose 86 mg/dL (74-106); Potassium 4.8 mmol/L (3.5-5.1); Sodium Level 140 mmol/L (136-145)
== END ==
PROVIDERS: Family Provider Family Medicine Geriatric Medicine; PCP Family Medicine Geriatric Medicine; Visit Provider Family Medicine Geriatric Medicine
DX: E87.6 Hypokalemia (principal)
CPT/HCPCS: 36415; 80048

== ENCOUNTER → 2019-07-18 14:10 | Outpatient (CLI) | payer MEDICARE, SELFPAY ==
[2019-05-30 11:51] VITALS: BMI 24.7
--- NOTE | 2019-07-18 14:14 | VDLE_ITS ---
Reason For Study: Localized Edema RIGHT LEFT GSV is normal. CFV is compressible, spontaneous, phasic, CFV is compressible, spontaneous, phasic, competent, and demonstrates normal competent and demonstrates normal augmentation. augmentation. FV is compressible, spontaneous, phasic, FV is compressible, spontaneous, phasic, competent and demonstrates normal competent and demonstrates normal augmentation. augmentation. POP V is compressible, spontaneous, phasic, POP V is compressible, spontaneous, phasic, competent and demonstrates normal competent and demonstrates normal augmentation. augmentation. T/P Trunk is compressible. T/P Trunk is compressible. PTV is compressible. PTV is compressible. LT PerV is compressible. RT PerV is compressible. Unable to visualize FV mid due to open Rt GSV recently harvested below knee. insicion from GSV harvest. Procedure Lt GSV recently harvested. Exam performed in department. A preliminary report was called and/or faxed Large nonvascularized hypoechoic structure to Drake. noted in the left distal anterior-medial calf measuring 1.50 x 1.68 cm. Interpretation Summary Deep veins of the lower extremities are bilaterally patent and compressible segmentally. There is no evidence of deep vein thrombosis on either side. Valvular competence appears intact within the proximal deep venous systems bilaterally. The left mid-femoral vein was not visualized due to the presence of an incision. The right great saphenous vein is patent and compressible above the knee, but has been previously harvested below the knee. The left great saphenous vein is absent, having been recently harvested. A large, non-vascular, hypoechoic structure is noted in the left distal, kim-medial calf, which may represent a seroma or hematoma. Clinical correlation is advised. Ordering Physician: Serafin Juan Referring Physician: Serafin Juan Chi Performed By: Ary Garcia RVT
== END ==
PROVIDERS: Family Provider Family Medicine Geriatric Medicine; PCP Family Medicine Geriatric Medicine; Referring Provider Family Medicine Geriatric Medicine; Visit Provider Family Medicine Geriatric Medicine
DX: R60.0 Localized edema (principal)
CPT/HCPCS: 93970

== ENCOUNTER → 2019-08-12 11:38 | Outpatient (CLI) | payer MEDICARE, SELFPAY ==
[2019-08-08 09:09] VITALS: BMI 22.4
--- NOTE | 2019-08-12 11:44 | CR.ITP_ITS ---
General Information - General Information Admitting Diagnosis: S/P CABG - Education/Goals Barriers to Learning: Hearing Impairment, Vision Impairment Individual Counseling: Initial Assessment: Nicotine/Smoking, Abnormal Cholesterol Levels, High Blood Pressure, Diabetes Cardiac Rehabilitation Goals: 1. Maintain the individual as the primary focus of care. 2. To improve the patient's quality of life. 3. Identification of cardiac risk factors and provide cardiac risk factor management. 4. Enhance the psychosocial status of the patient. 5. Reconditioning enough to allow the patient to resume customary activities. 6. Control symptoms of cardiac disease Scale for measuring improvement of personal goals: Enter appropriate number in Comments. 2 = Unchanged. 3 = Slightly Better. 4 = Moderate Improvement. 5 = Met my Goal Personal Goals: Initial Assessment: Improve management of stress and emotions, Improve energy level, Improve diet and eating habits (eat healthier), Control risk factors (learn risk factor modification) Exercise - Initial Assessment - Visit Date of Eval: 08/12/19 Session #:: 0 - EVALUTATION & ORIENTATION - Stages of Change Stages of Change:: Action - Physician Prescribed Exercise Modalities: Treadmill, Airdyne, NuStep Frequency (days/week): 3x/week for 12 weeks [36 sessions] Duration (Minutes):: 30-45 Intensity: 60-80% age predicted maximum heart rate reserve METs - Progression: 0.5-1.0 MET, RPE 11-14 WEEK: 2.5 - Hypertension Do any of the following apply?: Yes Resting Blood Pressure:: 102/68 - Intervention Home Exercise/Activity Goal:: Sitting Time <3 hrs/day - Education Goals:: Warm-up, RPE FREYA Scale, S/S, Safe Exercise, Self-Monitoring - Exercise Program Goals Exercise Program Goals: Aerobic Activity >30 min Nutrition - Initial Assessment - Program Goals Nutrition Program Goals: LDL <70. Total Cholesterol <200. HDL >45. Triglycerides <150. HgbA1C <7%. BMI <25 - Visit Date of Assessment:: 08/12/19 - Stages of Change Stages of Change:: Action - Lipids Total Cholesterol (mg/dL) Goal = less than 200 mg/dL: 107 - HDL Cholesterol (mg/dL) Goal = less than 45 mg/dL: 51 LDL Cholesterol (mg/dL) Goal = less than 70 mg/dL: 29 Triglycerides (mg/dL) Goal = less than 150 mg/dL: 133 - Diabetes Diabetes:: Yes Fasting blood glucose:: 86 Hgb A1C: 7.4 Insulin: No Non-Insulin Dependent?: Yes - Weight Management Height: 5 ft 5 in Weight:: 135 lb Body Fat %:: 22.4 - Intervention Referral to dietitian:: No Referral to Diabetic Clinic:: Yes Will attend diet classes:: Yes - Education Gave educational materials for:: Signs & symptoms of hypoglycemia, Signs & symptoms of hyperglycemia, Relate diabetes to coronary artery disease, Healthy eating Tobacco - Initial Assessment - Program Goals Tobacco Program Goals: Complete smoking cessation. Attend education classes. Improve Knowledge Test score - Stage of Change Stages of Change:: Action - Learning Barriers Learning Barriers: Hearing, Vision, Ready to Learn - Family Support Do you have family support?: Yes - Tobacco Use Tobacco Use: Cigarettes How long ago did you quit using tobacco products?: Less than 6 months ago - 05/31/2019 How many cigarettes do you smoke per day?: 0 - QUIT SMOKING 05/31/2019 Years Smokin - 1-PPD Do you use smokeless tobacco?: No - Intervention Smoking Cessation Referral:: No Individual Education/Counseling:: No Education Schedule Given:: Yes - Education Attended class for:: Treating Heart Disease, How The Heart Works, What it means to have Heart Disease, How Coronary Artery Disease is Diagnosed, Heart Procedures, What Heart Medications Do, Risk Factors & Modifications, Living an Active Life, Nutrition, Emotions & Heart Disease, Stress Management & Relaxation, Sleep Disorders & Heart Disease Psychosocial - Initial Assess - Target Goals Target Goals: Assess presence or absence of depression. Using a valid screening tool, maximizes coping skills. Positive support system - Stages of Change Stages of Change:: Action - Psychosocial Test Tool Used:: HANDS Depression Questionnaire - Intervention PS - Interventions: Yes Attend Stress Management Classes, No Referral to Mental Health, No Referral to [facility] Case Management, No Referral to Physician, No Uses Stress Management Skills - Education Gave educational materials for:: Coping techniques, Signs & symptoms of depression, Stress management, Relaxation techniques - Patient/Program Goal Preventative Medication(s):: Aspirin, RHYS inhibitor, Clopidogrel, Beta jean, Statin/lipid - Assistive Devices Assistive Devices:: None Fall Risk Assessed:: Yes Patient Health Questionnaire Initial Assessment 1. Little interest or pleasure in doing things: Not at all 2. Feeling down, depressed, or hopeless: Several days 3. Trouble falling or staying asleep, or sleeping too much: Several days 4. Feeling tired or having little energy: Several days 5. Poor appetite or overeating: Not at all 6. Feeling bad about yourself -- or that you are a failure or have let yourself or your family down: Several days 7. Trouble concentrating on things, such as reading the newspaper or watching television: Not at all 8. Moving or speaking so slowly that other people could have noticed. Or the opposite - being so fidgety or restless that you have been moving around a lot more than usual: Not at all 9. Thoughts that you would be better off , or of hurting yourself in some way: Not at all Total Score: 4 PATEL-Q SV Test - Statements CAD is a disease of the arteries in the heart: False Examples of risk factors for heart disease: True Angina is chest pain or discomfort: True The benefits of resistance training include: True Eating more meat and dairy products: False Anti-platelet medications such as aspirin are important: True The only effective way to manage stress: False An exercise warm-up slowly increases heart rate: True Prepared, processed foods usually have high sodium: True Depression is common after a heart attack: True The statin medications lower cholesterol: True To control blood pressure, lower the amount of sodium: True If someone gets chest discomfort during walking: False Transfats are partially hydrogenated vegetable oils: True Sleep apnea that is not treated increases the risk: False To control cholesterol, one should become a vegetarian: False Someone knows if he/she is exercising at the right level: True Diabetes cannot be prevented with exercise & health eating: False Stress is a large risk for heart attack: True A diet that can help lower blood pressure is rich in: True - Total Score Total Correct Responses: 20 Self-Efficacy Initial Assessment We would like to know how confident you are in doing certain activities. Please select your confidence level for:: Select your confidence level for the following using the scale 1-10 where 1 is not at all confident and 10 is totally confident. Your score is the average of all 6 responses. Fatigue: How confident are you that you can keep the fatigue caused by your disease from interfering with the things you want to do? Select Number: 4 Physical Discomfort or Pain: How confident are you that you can keep the physical discomfort or pain of your disease from interfering with the things you want to do? Select Number: 7 Emotional Distress: How confident are you that you can keep the emotional distress caused by your disease from interfering with the things you want to do? Select Number: 5 Other Symptoms or Health Problems: How confident are you that you can keep other symptoms or health problems from interfering with the things you want to do? Select Number: 6 Different Tasks and Activities: How confident are you that you can do the different tasks and activities needed to manage your health condition so as to reduce your need to see a doctor? Select Number: 5 Medication: How confident are you that you can do things other than just taking medication to reduce how much your illness affects your everyday life? Select Number: 7 Total Score:: 5 Nutrition Survey - Nutrition Survey Instructions Scoring Instructions: Scoring is as follows: Yes = 1 points. No = 0 point. Patient score that is >/=12 is considered to be at potential nutritional risk and could benefit from a referral to a registered dietitian. - Nutrition Survey Initial Have you lost >10 lbs over the past 2 months without trying?: No Are you following a special diet at home for diabetes, low fat, or low salt?: Yes Are you interested in meeting with a dietitian for help understanding your diet?: No Do you eat less than 3 meals a day?: Yes Do you eat fatty meats (valadez, sausage, ribs, etc), fried foods, desserts, large amounts of salad dressings, margarine, butter, or cheese most days?: No Do you have food allergies? [Enter types in comment field]: No Do you eat in restaurants more than 3 times a week?: No Do you season food with salt, seasoning salt, or garlic salt?: Yes Do you used canned, boxed, frozen meals, or soups, seasoning packets?: Yes - PATIENT COULD BENEFIT FROM DIABTIC EDUCATION AND CARDIAC DIET Total Score:: 4
--- NOTE | 2019-08-12 11:45 | CR.HP_ITS ---
CR - History & Physical - General Arrival date:: 08/12/19 Arrival time:: 11:49 Date of Referral:: 08/08/19 Date of CR Evaluation:: 08/12/19 Referring Physician: DR. EVIN MARISCAL Primary Diagnosis: S/P CABG - History of Present Cardiac Event Onset Date: Enter Onset Date of cardiac illnesses in Comment field below Acute Myocardial Infarction within 12 months:: Yes - STEMI 06/24/2019 Coronary Artery Bypass Graft:: Yes - S/P CABG 06/24/2019 Type of Symptoms:: 74 YR OLD FEMALE PRESENTED COPD, NON-INSULIN DIABETES PRIOR WI PRESENTED TO CR TODAY FOLLOWING RECENT CABG. SHORTNESS OF BREATH AND CALLED THE EMERGENCY [facility] TO TRANSPORT TO THE EMERGENCY ROOM. HSE WAS WORKED UP IN ER FOR EXACERBATION OF COPD AND HEART STATUS. Were there any complications?: LEFT GROIN INCISION KEEPS FILLING WITH FLUID AND SEEPING. - Medications Home Medications: Ambulatory Orders Medication Instructions Recorded metFORMIN HCl [Glucophage] 1 tab PO BID 02/05/17 aspirin 81 mg tablet,delayed 81 mg PO DAILY 07/10/19 release atorvastatin 80 mg tablet 80 mg PO QHS tab 07/10/19 clopidogrel 75 mg tablet 75 mg PO DAILY 07/10/19 insulin glargine (U-100) 100 15 unit SC QHS ml 07/10/19 unit/mL (3 mL) subcutaneous pen insulin lispro (U-100) 100 unit/mL 4 unit SC TID 07/10/19 subcutaneous pen lisinopril 2.5 mg tablet 2.5 mg PO DAILY 07/10/19 metoprolol tartrate 50 mg tablet 50 mg PO BID 07/10/19 multivit, iron, min. comb. tab PO DAILY tab 08/07/19 no.8-folic acid 9 mg-0.4 mg tablet furosemide 40 mg tablet 40 mg PO DAILY tab 08/08/19 - Allergies Allergies/Adverse Reactions: Allergies penicillin V Adverse Reaction (Severe, Verified 08/08/19 09:09) Unknown - Sleep Disorder Evaluation Hx of Sleep Apnea: Yes Do you snore loudly (louder than talking or can be heard through closed doors)?: Yes - DIAGNOSIS OF MAZIN AND HAS HOME CPAP MACHINE. Do you often feel tired/ fatigued/ sleepy during daytime?: No Has anyone observed you stop breathing during sleep?: Yes History of Hypertension (for STOP score): Yes STOP Results: Positive Advanced Directives - Advanced Directives Power of Apartment Rental Clerk: No Living Will: No Advance Directives Information Provided: Yes Advance Directives on File: No DNR Order?:: No - MOLST See MOLST form: No Past Medical History - Past Medical Illness Medical History: Past Medical History (Last Reviewed 08/08/19 @ 09:46 by Evin Mariscal MD) NSTEMI (non-ST elevated myocardial infarction) (Resolved) Onset Date: 05/31/19 I21.4 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) I25.119 CABG x 3 TUCKER-LAD, SVG-OM2, SVG-RPLB 06/24/2019 Chronic systolic (congestive) heart failure (Chronic) I50.22 Ischemic cardiomyopathy (Chronic) I25.5 Secondary pulmonary arterial hypertension (Chronic) I27.21 Nonrheumatic mitral (valve) insufficiency (Chronic) I34.0 Essential (primary) hypertension (Chronic) I10 Hyperlipidemia (Chronic) E78.5 Nicotine dependence (Chronic) F17.200 Postoperative atrial fibrillation (Resolved) Onset Date: 06/25/19 I97.89, I48.91 COPD (chronic obstructive pulmonary disease) J44.9 Peripheral vascular occlusive disease I73.9 Type 2 diabetes mellitus E11.9 - Past Surgical History Surgical History: Past Surgical History (Last Reviewed 08/08/19 @ 09:46 by Evin Mariscal MD) H/O coronary artery bypass surgery (Resolved) Onset Date: 06/24/19 Z95.1 CABG x 3 TUCKER-LAD, SVG-OM2, SVG-RPLB 06/24/2019 History of angioplasty of peripheral vessel Onset Date: 01/26/11 Z98.62 Left SFA and Pop History of ankle surgery Z98.890 History of hysterectomy Z90.710 History of left heart catheterization Onset Date: 06/02/19 Z98.890 Hx of cholecystectomy Z90.49 Surgical History: cholecystectomy, hysterectomy, - - Bilateral breast biopsy, left ankle surgery, left toe amputation, right wrist surgery. - Family History Summary Family History: Family History (Last Reviewed 08/08/19 @ 09:46 by Evin Mariscal MD) Mother Hypertension Father Heart disease Social History - Smoking History Smoking Status: Former smoker Years Smokin Packs Smoked per Day: 1 Hx Smoking Cessation Date: 05/31/2019 Hx Tobacco Use: Yes Hx Smoking Exposure: Yes - Alcohol Use Alcohol Usage: No - Substance Abuse Hx Substance Use: No - Occupation Occupation (List type of work in comments):: Homemaker - Hobbies, Recreation, Social Activities Hobbies: Other - GARDENING, FLOWER BEDS, WORKING OUT IN THE YARD. Recreational Activities: I am able to engage in a few activities - LEG WEAKNESS NAD THE LEAKING INCISION OF THE LEFT LEG LIMIT ABILITY. 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 DR. MARISCAL AND DR. SAVAGE HAVE BOTH SEEN THE INCISION AREA PER PATIENT. Social Environment - Status Marital Status: - Current Living Arrangements Living Environment:: Spouse - Children How many children do you have?: 2 Do any of your children live nearby?: Yes - Safety Do you feel safe in your surroundings?: Yes - Assistance Do you need any assistance at home?: NONE Review of Systems - Review of Systems Hints: Right click = Denies ([place]). Left click = Reports ([place]) Review of Present Symptoms: Reports: Dizziness/Lightheadedness - ONCE IN A WHILE UT NOT OFTEN. OFTEN OCCURS IF GET UP TO FAST., Appetite - Normal, Sleep - Normal. Denies: Shortness of Breath at Rest, Shortness of Breath with Exertion, Operative Discomfort, Angina, Wound Healing - OPEN SEEPING SIT OF VEIN HARVEST IN THE LEFT GROIN REGION KEEP SFILLING WITH FLUID AND SEEPING. NEAGTIVE FOR REDNESS OR SIGNS OF INFECTION., Appetite - Special Diet - Pain Is Patient Pain Free?: Yes Pain Level: 0/10 Risk Factor Assessment - Chief Complaint Chief Complaint: PATIENT IS A 74 YEAR OLD FEMALE OF DR. EVIN MARISCAL WHO PRESENTS TO CARDIAC REHAB FOLLOWING A RECENT S/P CABG IN 05/2019. SHE ALSO HAS A H/O NON-INSULIN DM TYPE II AND COPD. - Vital Signs Temperature: 97.5 F Respiratory Rate: 18 Pulse Ox: 97 Blood Pressure: 102/70 Nailbeds:: PINK - Pulse Pulse Rate: 72 Pulse Rhythm: Regular - Hypertension Blood Pressure Sitting - Right Arm: 102/70 Blood Pressure Sitting - Left Arm: 104/68 - Stress Stress: Recent - Blood Cholesterol/Lipids Total Cholesterol (mg/dL) Goal = less than 200 mg/dL: 107 HDL Cholesterol (mg/dL) Goal = less than 40 mg/dL: 51 LDL Cholesterol (mg/dL) Goal = less than 70 mg/dL: 29 Triglycerides (mg/dL) Goal = less than 150 mg/dL: 133 - Diabetes Diabetic History: Type II, Medication Dependent Nutrition Referral for Diabetes: Yes - Obesity Height: 5 ft 5 in Weight:: 135 lb Weight in Pounds: 135.0 lbs Weight Source: Standing Scale Body Mass Index (BMI): 22.4 - Physical Inactivity Physical Inactivity: None - SEDENTARY LIFESTYLE - Risk Stratification Risk Guidelines: Lowest Risk: Risk Factor for Dyslipidemia, Risk Factor for Diabetes - FASTING GLUCOSE 86; hGB a1c 7.4%, Risk Factor for Obesity, Risk Factor for Hypertension, Risk Factor for Sedentary Lifestyle, Risk Factor for Depression, Moderate Risk: Risk Factor for Smoking - RECENTLY QUIT 05/2019 - For Smoking Smoking Risk Guidelines: Smoking Low Risk: None or quit greater than 6 months ago. Smoking Moderate Risk: Smoker or quit 6 months or less ago. Smoking High Risk: Smoker - For Dyslipidemia Dyslipidemia Risk Guidelines: Low Risk: Moderate Risk: High Risk: 15-25% fat 25.1-29% fat >/= 30% fat. <7% sat fat 7-9% sat fat >9% sat fat. <150 mg chol 150-299 mg chol >/= 300 mg chol. LDL <100 LDL 100-129 LDL >/= 130. Chol/HDL ratio <5.0 Chol/HDL ratio 5.0-6.0 Chol/HDL ratio >6.0. Triglycerides <100 Triglycerides 100- 149 Triglycerides >/= 150 - For Diabetes Mellitus Diabetes Risk Guidelines: Diabetes Low Risk: HgA1c <6.5% and/or FBG <120. Diabetes Moderate Risk: HgA1c 6.6-7.9% and/or FBG 120-180. Diabetes High Risk: HgA1c >/= 8% and/or FBG >180 - For Obesity/Overweight Obesity/Overweight Risk Guidelines: Obesity Low Risk: BMI <25.0. Obesity Moderate Risk: BMI 25-29.9. Obesity High Risk: BMI >/= 30.0 - For Hypertension Hypertension Risk Guidelines: Hypertension Low Risk: Systolic <120 and Diastolic <80. Hypertension Moderate Risk: Systolic 120-139 and Diastolic 80-89. Hypertension High Risk: Systolic >/= 140 and Diastolic >/= 90 - For Sedentary Lifestyle Sedentary Lifestyle Risk Guidelines: Sedentary Lifestyle Low Risk: >/= 1,500 kcal/week. Sedentary Lifestyle Moderate Risk: 700-1,499 kcal/week. Sedentary Lifestyle High Risk: < 700 kcal/week - For Depression Depression Risk Guidelines: Depression Low Risk: Not clinically depressed. Depression Moderate Risk: Mildly depressed. Depression High Risk: Clinically depressed - Family History Family History: Family History (Last Reviewed 08/08/19 @ 09:46 by Evin Mariscal MD) Mother Hypertension Father Heart disease Motivation - Motivation to Participate On a scale of 1 to 10, how prepared are you to commit to attending program?: 6 What do you see as barriers to successfully being able to complete the program?: NEUROPTHY PAIN IN LOWER EXTREMETIES/FEET What do you see as the benefits of succesfully completing the program? In other words, what do you hope to get out of participating in the program?: MORE STAMINA, STRENGTH AND ENERGY. BE ABLE TO GET AROUND BETTER. Are there issues you are dealing with that will interfere with completing the program?: INCISION OF LEFT LEG. Do you have a spouse or signficant other, family or friends who will help support you to complete the program?: YES.
[2019-08-12 12:20] VITALS: BP 102/70; BP 104/68; PULSE 72; RESP 18; TEMP 36.4; O2SAT 97; BMI 22.4
[2019-08-12 12:44] VITALS: BP 102/68
== END ==
PROVIDERS: Family Provider Family Medicine Geriatric Medicine; PCP Family Medicine Geriatric Medicine; Referring Provider Internal Medicine Cardiovascular Disease; Visit Provider Internal Medicine Cardiovascular Disease
DX: J44.9 Chronic obstructive pulmonary disease, unspecified (principal); E11.9 Type 2 diabetes mellitus without complications; E78.5 Hyperlipidemia, unspecified; I11.0 Hypertensive heart disease with heart failure; I50.22 Chronic systolic (congestive) heart failure

== ENCOUNTER 2019-09-10 10:15 | Outpatient (RCR) | payer MEDICARE, SELFPAY ==
[2019-08-12 12:20] VITALS: BMI 22.4
== END 2019-09-11 23:59 ==
LOC: CR 10:15
PROVIDERS: Family Provider Family Medicine Geriatric Medicine; PCP Family Medicine Geriatric Medicine; Referring Provider Internal Medicine Cardiovascular Disease; Visit Provider Internal Medicine Cardiovascular Disease
DX: Z95.1 Presence of aortocoronary bypass graft (principal)
CPT/HCPCS: 93798

== ENCOUNTER → 2019-09-15 09:02 | Outpatient (CLI) | payer MEDICARE, SELFPAY ==
[2019-08-12 12:20] VITALS: BMI 22.4
--- NOTE | 2019-09-15 09:03 | ECHOD_ITS ---
Reason For Study: S/P CABG Procedure This was a 2D Doppler, Color Flow transthoracic echocardiogram. Exam performed in department. Left Ventricle Normal LV size. The estimated ejection fraction is 40 %. Stage 1 diastolic dysfunction. Moderate segmental systolic dysfunction (see wall motion). Posterior-Basal: Severely hypokinetic. Infero- Basal: Akinetic. Mid-Inferior: Akinetic. Mid-Posterior: Akinetic. Basal anteroseptal: Normal. Mid- anteroseptal : Normal. Mid-inferoseptal : Hypokinetic. The rest of the wall segments are normal. Right Ventricle Normal RV size. Normal systolic function. Atria Normal left atrium. Normal right atrium. Mitral Valve Normal mitral valve. Tricuspid Valve Normal tricuspid valve. Aortic Valve Trisinus/trileaflet aortic valve. Pulmonic Valve Normal pulmonic valve. Great Vessels Normal aortic root. The pulmonary artery is normal size. Normal inferior vena cava. Pericardium/Pleural No pericardial effusion. MMode/2D Measurements & Calculations LVIDd: 5.1 cm IVSd: 0.83 cm Ao root diam: 3.0 cm LVIDs: 4.0 cm LVPWd: 0.84 cm RVDd: 3.1 cm FS: 20.6 % LAV(MOD-bp): 38.6 ml LVAd ap4: 34.2 cm2 SV(MOD-sp4): 41.1 ml LAV(MOD-bp) Indexed: 23.0 ml/m2 EDV(MOD-sp4): 117.2 ml LAV(MOD-sp2): 50.7 ml EDV(sp4-el): 126.2 ml LAV(MOD-sp4): 27.2 ml LVAs ap4: 25.5 cm2 ESV(MOD-sp4): 76.1 ml ESV(sp4-el): 76.7 ml EF(MOD-sp4): 35.1 % EF(sp4-el): 39.2 % SV(sp4-el): 49.5 ml LA A4 area: 12.4 cm2 LA dimension(2D): 3.3 cm RA A4 area: 10.7 cm2 Time Measurements MV dec time: 0.25 sec Doppler Measurements & Calculations MV E max karl: 39.9 cm/sec Lat Peak E' Karl: 4.8 cm/sec Med Peak E' Karl: 1.7 cm/sec MV A max karl: 78.4 cm/sec E/E' lat: 8.3 E/E' med: 23.3 MV E/A: 0.51 Ao V2 max: 111.0 cm/sec LV V1 max: 84.4 cm/sec PA V2 max: 73.6 cm/sec Ao max P.9 mmHg LV V1 max P.8 mmHg TR max karl: 266.0 cm/sec TR max P.5 mmHg Interpretation Summary Normal LV size. The estimated ejection fraction is 40 %. Stage 1 diastolic dysfunction. Moderate segmental systolic dysfunction (see wall motion). Compared to previous study, the left ventricular systolic function is the same.. Ordering Physician: Evin Estrella Referring Physician: GILLES STANLEY CHI Performed By: Nyla Grigsby, DAVIN, RVT
== END ==
PROVIDERS: Family Provider Family Medicine Geriatric Medicine; PCP Family Medicine Geriatric Medicine; Referring Provider Internal Medicine Cardiovascular Disease; Visit Provider Internal Medicine Cardiovascular Disease
DX: I25.2 Old myocardial infarction (principal); Z95.1 Presence of aortocoronary bypass graft
CPT/HCPCS: 93306

== ENCOUNTER 2019-10-08 10:15 | Outpatient (RCR) | payer MEDICARE, SELFPAY ==
[2019-08-12 12:20] VITALS: BMI 22.4
--- NOTE | 2019-09-12 08:07 | CR.ITP_ITS ---
Exercise - 30-day Assessment - Visit Date of Eval: 09/12/19 Session #:: 10 - Stages of Change Stages of Change:: Action - Physician Prescribed Exercise Modalities: Treadmill, Airdyne, NuStep Frequency (days/week): 3 Duration (Minutes):: 30-45 Intensity: 60-80% age predicted maximum heart rate reserve METs - Progression: 0.5-1.0 MET, RPE 11-14 WEEK: 3 increase of 0.5 METS since starting the program Target Heart Rate:: 96-111 w/max HR 94 - Hypertension Resting Blood Pressure:: 124/70 Peak Exercise Blood Pressure:: 132/72 Medication Changes:: No - Intervention Home Exercise/Activity Goal:: Moderate Exercise 30 min/day x 5 days/wk - Education Goals:: Warm-up, RPE FREYA Scale, S/S, Safe Exercise, Self-Monitoring - Exercise Program Goals Exercise Program Goals: Aerobic Activity >30 min Nutrition - 30-Day Assessment - Program Goals Nutrition Program Goals: LDL <70. Total Cholesterol <200. HDL >45. Triglycerides <150. HgbA1C <7%. BMI <25 - Visit Date of Eval: 09/12/19 - Stages of Change Stages of Change:: Action - Lipids Has the patient seen the dietitian?: No - patient declined services - Diabetes Diabetes:: No - Intervention Referral to dietitian:: No Referral to Diabetic Clinic:: No Will attend diet classes:: Yes - Education Attended class for:: Healthy eating Tobacco - Initial Assessment - Program Goals Tobacco Program Goals: Complete smoking cessation. Attend education classes. Improve Knowledge Test score - Learning Barriers Learning Barriers: Hearing, Vision, Ready to Learn Tobacco - 30-Day Assessment - Program Goals Tobacco Program Goals: Complete smoking cessation. Attend education classes. Improve Knowledge Test score - Stage of Change Stages of Change:: Action - Learning Barriers Learning Barriers: Participates in education - Family Support Do you have family support?: Yes - Tobacco Use Tobacco Use: Non-smoker Do you use smokeless tobacco?: No - Intervention Smoking Cessation Referral:: No Individual Education/Counseling:: No Education Schedule Given:: Yes - Education Attended class for:: Nutrition, Emotions & Heart Disease, Stress Management & Relaxation, Sleep Disorders & Heart Disease Psychosocial - Initial Assess - Target Goals Target Goals: Assess presence or absence of depression. Using a valid screening tool, maximizes coping skills. Positive support system - Psychosocial Test Tool Used:: HANDS Depression Questionnaire - Assistive Devices Fall Risk Assessed:: Yes Psychosocial - 30-Day Assess - Target Goals Target Goals: Assess presence or absence of depression. Using a valid screening tool, maximizes coping skills. Positive support system - Stages of Change Stages of Change:: Action - Psychosocial Test Tool Used:: HANDS Depression Questionnaire - Intervention PS - Interventions: Yes Attend Stress Management Classes, Yes Uses Stress Management Skills, No Referral to Mental Health, No Referral to [facility] Case Management, No Referral to Physician - Education Attended classes for:: Coping techniques, Signs & symptoms of depression, Stress management, Relaxation techniques - Patient/Program Goal Preventative Medication(s):: Aspirin - patient is compliant with medications, RHYS inhibitor, Clopidogrel, Beta jean, Statin/lipid - Assistive Devices Assistive Devices:: None Fall Risk Assessed:: Yes Patient Health Questionnaire 30-Day Re-eval Assessment 1. Little interest or pleasure in doing things: Not at all 2. Feeling down, depressed, or hopeless: Several days 3. Trouble falling or staying asleep, or sleeping too much: Several days 4. Feeling tired or having little energy: Several days 5. Poor appetite or overeating: Not at all 6. Feeling bad about yourself -- or that you are a failure or have let yourself or your family down: Not at all 7. Trouble concentrating on things, such as reading the newspaper or watching television: Not at all 8. Moving or speaking so slowly that other people could have noticed. Or the opposite - being so fidgety or restless that you have been moving around a lot more than usual: Not at all 9. Thoughts that you would be better off , or of hurting yourself in some way: Not at all How difficult have these problems made it for you to do your work, take care of things at home, or get along with other people?: Not difficult at all Total Score: 3 Self-Efficacy 30-Day Re-eval Assessment We would like to know how confident you are in doing certain activities. Please select your confidence level for:: Select your confidence level for the following using the scale 1-10 where 1 is not at all confident and 10 is totally confident. Your score is the average of all 6 responses. Fatigue: How confident are you that you can keep the fatigue caused by your disease from interfering with the things you want to do? Select Number: 5 Physical Discomfort or Pain: How confident are you that you can keep the physical discomfort or pain of your disease from interfering with the things you want to do? Select Number: 8 Emotional Distress: How confident are you that you can keep the emotional distress caused by your disease from interfering with the things you want to do? Select Number: 6 Other Symptoms or Health Problems: How confident are you that you can keep other symptoms or health problems from interfering with the things you want to do? Select Number: 7 Different Tasks and Activities: How confident are you that you can do the different tasks and activities needed to manage your health condition so as to reduce your need to see a doctor? Select Number: 7 Medication: How confident are you that you can do things other than just taking medication to reduce how much your illness affects your everyday life? Select Number: 8 Total Score:: 6
[2019-09-12 08:11] VITALS: BP 124/70; BP 132/72
[2019-09-17 13:14] LABS: Absolute Lymphocyte Count 2.62 X10^3/uL (0.83-4.51); Absolute Neutrophil Count 8.1 X10^3/uL (2.0-7.7); Basophil# 0.07 X10^3/uL; Basophil% 0.6 % (0-1); Eosinophil# 0.12 X10^3/uL; Hematocrit 44.3 % (37-47); Hemoglobin 14.6 g/dL (12.0-15.0); Lymphocyte # 2.62 X10^3/ul (4.0); Lymphocyte % 22.1 % (19-41); Mean Corpuscular Hgb 30.8 pg (27.0-32.0); Mean Corpuscular Volume 93.5 fL (81-99); Mean Platelet Vol. 9.1 fl (6.2-12.0); Monocyte# 0.86 X10^3/uL; Monocyte% 7.3 % (0-10); NRBC Flagged by Analyzer 0 % (0-5); Neutrophil # 8.13 X10^3/uL (2.7-7.7); Neutrophil % 68.7 % (47-70); Platelet Count 347 K/mm3 (150-450); RBC Distribution Width CV 14.7 % (11.6-14.6); Red Blood Count 4.74 M/mm3 (4.2-5.4); White Blood Count 11.8 K/mm3 (4.4-11.0)
[2019-09-17 13:36] LABS: AST(SGOT) 21 U/L (15-37); Alanine Aminotransfer ALT/SGPT 30 U/L (13-56); Albumin, Serum 3.8 g/dL (3.2-5.0); Alkaline Phosphatase 101 U/L (45-117); Anion Gap 12 (5-15); BUN 42 mg/dL (7-18); BUN/Creat Ratio 17.6 RATIO (10-20); Calcium,Total 9.4 mg/dL (8.5-10.1); Chloride 104 mmol/L (98-107); Creatinine, Serum 2.38 mg/dL (0.55-1.02); EST Glomerular Filtration Rate 21 mL/min (>60); Est Glom Filt Rate - Afr Amer 26 mL/min (>60); Globulin 3.8 g/dL (2.2-4.2); Glucose 105 mg/dL (74-106); Potassium 3.2 mmol/L (3.5-5.1); Protein, Total 7.6 g/dL (6.4-8.2); Sodium Level 137 mmol/L (136-145); Thyroid Stim Hormone (TSH) 2.13 uIU/mL (0.358-3.74)
== END 2019-10-11 23:59 ==
LOC: CR 10:15
PROVIDERS: Family Provider Family Medicine Geriatric Medicine; PCP Family Medicine Geriatric Medicine; Referring Provider Internal Medicine Cardiovascular Disease; Visit Provider Internal Medicine Cardiovascular Disease
DX: I21.4 Non-ST elevation (NSTEMI) myocardial infarction (principal); I25.119 Atherosclerotic heart disease of native coronary artery with unspecified angina pectoris; Z95.1 Presence of aortocoronary bypass graft; I11.0 Hypertensive heart disease with heart failure; I50.22 Chronic systolic (congestive) heart failure; I25.5 Ischemic cardiomyopathy; I27.21 Secondary pulmonary arterial hypertension; E11.9 Type 2 diabetes mellitus without complications; E55.9 Vitamin D deficiency, unspecified
CPT/HCPCS: 36415; 80053; 82306; 84443; 85025; 93798

== ENCOUNTER → 2019-10-29 11:18 | Outpatient (CLI) | payer MEDICARE, SELFPAY ==
[2019-10-29 09:27] VITALS: BMI 22.3
[2019-10-29 13:15] LABS: Anion Gap 11 (5-15); BUN 26 mg/dL (7-18); BUN/Creat Ratio 19.4 RATIO (10-20); Calcium,Total 9.3 mg/dL (8.5-10.1); Chloride 106 mmol/L (98-107); Creatinine, Serum 1.34 mg/dL (0.55-1.02); EST Glomerular Filtration Rate 41 mL/min (>60); Est Glom Filt Rate - Afr Amer 50 mL/min (>60); Glucose 86 mg/dL (74-106); Potassium 3.3 mmol/L (3.5-5.1); Sodium Level 140 mmol/L (136-145)
== END ==
PROVIDERS: Family Provider Family Medicine Geriatric Medicine; PCP Family Medicine Geriatric Medicine; Referring Provider Physician Assistant Medical; Visit Provider Physician Assistant Medical
DX: I25.119 Atherosclerotic heart disease of native coronary artery with unspecified angina pectoris (principal)
CPT/HCPCS: 36415; 80048

== ENCOUNTER 2019-11-10 10:15 | Outpatient (RCR) | payer MEDICARE, SELFPAY ==
[2019-08-12 12:20] VITALS: BMI 22.4
[2019-10-12 00:58] VITALS: BP 124/70; BP 132/72
--- NOTE | 2019-10-13 12:39 | PCM.CR.ITP ---
Exercise - 60-Day Assessment - Visit Date of Eval: 10/13/19 Session #:: 23 - Stages of Change Stages of Change:: Action - Physician Prescribed Exercise Modalities: Treadmill, Airdyne, NuStep Frequency (days/week): 3 Duration (Minutes):: 30-45 Intensity: 60-80% age predicted maximum heart rate reserve METs - Progression: 0.5-1.0 MET, RPE 11-14 WEEK: 4.5 Target Heart Rate:: 96-111 w/max HR 96 - Hypertension Resting Blood Pressure:: 100/52 Peak Exercise Blood Pressure:: 114/74 Medication Changes:: No - Intervention Home Exercise/Activity Goal:: Moderate Exercise 30 min/day x 5 days/wk - Education Goals:: Warm-up, RPE FREYA Scale, S/S, Safe Exercise, Self-Monitoring - Exercise Program Goals Exercise Program Goals: Aerobic Activity >30 min Nutrition - 60-Day Assessment - Program Goals Nutrition Program Goals: LDL <70. Total Cholesterol <200. HDL >45. Triglycerides <150. HgbA1C <7%. BMI <25 - Visit Date of Eval: 10/13/19 - Stages of Change Stages of Change:: Action - Lipids Has the patient seen the dietitian?: No - Diabetes Diabetes:: No Insulin: No Non-Insulin Dependent?: No - Weight Management Weight:: 133 lb 8 oz - loss 3# this 30 days. - Intervention Referral to dietitian:: No Referral to Diabetic Clinic:: No Will attend diet classes:: Yes - Education Attended class for:: Healthy eating Tobacco - Initial Assessment - Program Goals Tobacco Program Goals: Complete smoking cessation. Attend education classes. Improve Knowledge Test score - Learning Barriers Learning Barriers: Hearing, Vision, Ready to Learn Tobacco - 60-Day Assessment - Program Goals Tobacco Program Goals: Complete smoking cessation. Attend education classes. Improve Knowledge Test score - Stage of Change Stages of Change:: Action - Learning Barriers Learning Barriers: Participates in education, Change in behavior - Family Support Do you have family support?: Yes - Tobacco Use Tobacco Use: Non-smoker Do you use smokeless tobacco?: No - Intervention Smoking Cessation Referral:: No Individual Education/Counseling:: No Education Schedule Given:: Yes - Education Attended class for:: Treating Heart Disease, How The Heart Works, What it means to have Heart Disease, How Coronary Artery Disease is Diagnosed, Living an Active Life, Nutrition, Emotions & Heart Disease, Stress Management & Relaxation Psychosocial - Initial Assess - Target Goals Target Goals: Assess presence or absence of depression. Using a valid screening tool, maximizes coping skills. Positive support system - Psychosocial Test Tool Used:: HANDS Depression Questionnaire - Assistive Devices Fall Risk Assessed:: Yes Psychosocial - 60-Day Assess - Target Goals Target Goals: Assess presence or absence of depression. Using a valid screening tool, maximizes coping skills. Positive support system - Stages of Change Stages of Change:: Action - Psychosocial Test Tool Used:: HANDS Depression Questionnaire - Intervention PS - Interventions: Yes Attend Stress Management Classes, Yes Uses Stress Management Skills, No Referral to Mental Health, No Referral to [facility] Case Management, No Referral to Physician - Education Attended classes for:: Coping techniques, Signs & symptoms of depression, Stress management, Relaxation techniques - Patient/Program Goal Preventative Medication(s):: Aspirin, RHYS inhibitor, Clopidogrel, Beta jean, Statin/lipid - pateint reports compliance with daily medications - Assistive Devices Assistive Devices:: None Fall Risk Assessed:: Yes Patient Health Questionnaire 60-Day Re-eval Assessment 1. Little interest or pleasure in doing things: Not at all 2. Feeling down, depressed, or hopeless: Not at all 3. Trouble falling or staying asleep, or sleeping too much: Several days 4. Feeling tired or having little energy: Not at all 5. Poor appetite or overeating: Not at all 6. Feeling bad about yourself -- or that you are a failure or have let yourself or your family down: Not at all 7. Trouble concentrating on things, such as reading the newspaper or watching television: Not at all 8. Moving or speaking so slowly that other people could have noticed. Or the opposite - being so fidgety or restless that you have been moving around a lot more than usual: Not at all 9. Thoughts that you would be better off , or of hurting yourself in some way: Not at all How difficult have these problems made it for you to do your work, take care of things at home, or get along with other people?: Not difficult at all Total Score: 1 Self-Efficacy 60-Day Re-eval Assessment We would like to know how confident you are in doing certain activities. Please select your confidence level for:: Select your confidence level for the following using the scale 1-10 where 1 is not at all confident and 10 is totally confident. Your score is the average of all 6 responses. Fatigue: How confident are you that you can keep the fatigue caused by your disease from interfering with the things you want to do? Select Number: 7 Physical Discomfort or Pain: How confident are you that you can keep the physical discomfort or pain of your disease from interfering with the things you want to do? Select Number: 9 Emotional Distress: How confident are you that you can keep the emotional distress caused by your disease from interfering with the things you want to do? Select Number: 7 Other Symptoms or Health Problems: How confident are you that you can keep other symptoms or health problems from interfering with the things you want to do? Select Number: 8 Different Tasks and Activities: How confident are you that you can do the different tasks and activities needed to manage your health condition so as to reduce your need to see a doctor? Select Number: 8 Medication: How confident are you that you can do things other than just taking medication to reduce how much your illness affects your everyday life? Select Number: 8 Total Score:: 7
[2019-10-13 12:43] VITALS: BP 100/52; BP 114/74
== END 2019-11-11 23:59 ==
LOC: CR 10:15
PROVIDERS: Family Provider Family Medicine Geriatric Medicine; PCP Family Medicine Geriatric Medicine; Referring Provider Internal Medicine Cardiovascular Disease; Visit Provider Internal Medicine Cardiovascular Disease
DX: I21.4 Non-ST elevation (NSTEMI) myocardial infarction (principal); I25.119 Atherosclerotic heart disease of native coronary artery with unspecified angina pectoris; I50.22 Chronic systolic (congestive) heart failure; I25.5 Ischemic cardiomyopathy; I27.21 Secondary pulmonary arterial hypertension; Z95.1 Presence of aortocoronary bypass graft
CPT/HCPCS: 93798

== ENCOUNTER 2019-11-19 09:15 | Outpatient (RCR) | payer MEDICARE, SELFPAY ==
[2019-10-29 09:27] VITALS: BMI 22.3
[2019-11-12 00:42] VITALS: BP 100/52; BP 114/74
--- NOTE | 2019-11-14 08:11 | CR.ITP_ITS ---
General Information - General Information Admitting Diagnosis: S/P CABG - Education/Goals Barriers to Learning: None Cardiac Rehabilitation Goals: 1. Maintain the individual as the primary focus of care. 2. To improve the patient's quality of life. 3. Identification of cardiac risk factors and provide cardiac risk factor management. 4. Enhance the psychosocial status of the patient. 5. Reconditioning enough to allow the patient to resume customary activities. 6. Control symptoms of cardiac disease Scale for measuring improvement of personal goals: Enter appropriate number in Comments. 2 = Unchanged. 3 = Slightly Better. 4 = Moderate Improvement. 5 = Met my Goal Exercise - 90-Day Assessment - Visit Date of Eval: 11/14/19 Session #:: 33 - Stages of Change Stages of Change:: Action - Physician Prescribed Exercise Modalities: Airdyne, NuStep, SciFit Frequency (days/week): 3 Duration (Minutes):: 30-45 Intensity: 60-80% age predicted maximum heart rate reserve METs - Progression: 0.5-1.0 MET, RPE 11-14 WEEK: 4.5 Target Heart Rate:: 96-111 Max HR 92 - Hypertension Resting Blood Pressure:: 98/62 Peak Exercise Blood Pressure:: 142/68 Medication Changes:: No - Intervention Home Exercise/Activity Goal:: Sitting Time <3 hrs/day - Education Goals:: Warm-up, RPE FREYA Scale, S/S, Safe Exercise, Self-Monitoring - Exercise Program Goals Exercise Program Goals: Aerobic Activity >30 min, B/P <130/80 Nutrition - 90-Day Assessment - Program Goals Nutrition Program Goals: LDL <70. Total Cholesterol <200. HDL >45. Triglycerides <150. HgbA1C <7%. BMI <25 - Visit Date of Eval: 11/14/19 - Stages of Change Stages of Change:: Action - Weight Management Weight:: 61.235 kg - Intervention Referral to dietitian:: No Referral to Diabetic Clinic:: No Will attend diet classes:: Yes - Education Attended class for:: Signs & symptoms of hypoglycemia, Signs & symptoms of hyperglycemia, Relate diabetes to coronary artery disease, Healthy eating Tobacco - Initial Assessment - Program Goals Tobacco Program Goals: Complete smoking cessation. Attend education classes. Improve Knowledge Test score - Learning Barriers Learning Barriers: Hearing, Vision, Ready to Learn Tobacco - 90-Day Assessment - Program Goals Tobacco Program Goals: Complete smoking cessation. Attend education classes. Improve Knowledge Test score - Stage of Change Stages of Change:: Action - Learning Barriers Learning Barriers: Participates in education - Family Support Do you have family support?: Yes - Tobacco Use Tobacco Use: Non-smoker Do you use smokeless tobacco?: No - Intervention Smoking Cessation Referral:: No Individual Education/Counseling:: No Education Schedule Given:: Yes - Education Attended class for:: Treating Heart Disease, How The Heart Works, What it means to have Heart Disease, How Coronary Artery Disease is Diagnosed, Heart Procedures, What Heart Medications Do, Risk Factors & Modifications, Living an Active Life, Nutrition, Emotions & Heart Disease, Stress Management & Relaxation, Sleep Disorders & Heart Disease Psychosocial - Initial Assess - Target Goals Target Goals: Assess presence or absence of depression. Using a valid screening tool, maximizes coping skills. Positive support system - Psychosocial Test Tool Used:: HANDS Depression Questionnaire - Assistive Devices Fall Risk Assessed:: Yes Psychosocial - 90-Day Assess - Target Goals Target Goals: Assess presence or absence of depression. Using a valid screening tool, maximizes coping skills. Positive support system - Stages of Change Stages of Change:: Action - Psychosocial Test Tool Used:: HANDS Depression Questionnaire - Intervention PS - Interventions: Yes Attend Stress Management Classes, Yes Uses Stress Management Skills, No Referral to Mental Health, No Referral to [facility] Case Management, No Referral to Physician - Education Attended classes for:: Coping techniques, Signs & symptoms of depression, Stress management, Relaxation techniques - Assistive Devices Assistive Devices:: None Fall Risk Assessed:: Yes Patient Health Questionnaire 90-Day Re-eval Assessment 1. Little interest or pleasure in doing things: Not at all 2. Feeling down, depressed, or hopeless: Not at all 3. Trouble falling or staying asleep, or sleeping too much: Several days 4. Feeling tired or having little energy: Not at all 5. Poor appetite or overeating: Not at all 6. Feeling bad about yourself -- or that you are a failure or have let yourself or your family down: Not at all 7. Trouble concentrating on things, such as reading the newspaper or watching television: Not at all 8. Moving or speaking so slowly that other people could have noticed. Or the opposite - being so fidgety or restless that you have been moving around a lot more than usual: Not at all 9. Thoughts that you would be better off , or of hurting yourself in some way: Not at all How difficult have these problems made it for you to do your work, take care of things at home, or get along with other people?: Not difficult at all Total Score: 1 Self-Efficacy 90-Day Re-eval Assessment We would like to know how confident you are in doing certain activities. Please select your confidence level for:: Select your confidence level for the following using the scale 1-10 where 1 is not at all confident and 10 is totally confident. Your score is the average of all 6 responses. Fatigue: How confident are you that you can keep the fatigue caused by your disease from interfering with the things you want to do? Select Number: 7 Physical Discomfort or Pain: How confident are you that you can keep the physical discomfort or pain of your disease from interfering with the things you want to do? Select Number: 9 Emotional Distress: How confident are you that you can keep the emotional distress caused by your disease from interfering with the things you want to do? Select Number: 7 Other Symptoms or Health Problems: How confident are you that you can keep other symptoms or health problems from interfering with the things you want to do? Select Number: 8 Different Tasks and Activities: How confident are you that you can do the different tasks and activities needed to manage your health condition so as to reduce your need to see a doctor? Select Number: 8 Medication: How confident are you that you can do things other than just taking medication to reduce how much your illness affects your everyday life? Select Number: 8 Total Score:: 7
[2019-11-14 08:16] VITALS: BP 142/68; BP 98/62
== END 2019-12-12 23:59 ==
LOC: CR 09:15
PROVIDERS: Family Provider Family Medicine Geriatric Medicine; PCP Family Medicine Geriatric Medicine; Referring Provider Internal Medicine Cardiovascular Disease; Visit Provider Internal Medicine Cardiovascular Disease
DX: I21.4 Non-ST elevation (NSTEMI) myocardial infarction (principal); I25.119 Atherosclerotic heart disease of native coronary artery with unspecified angina pectoris; I50.22 Chronic systolic (congestive) heart failure; I25.5 Ischemic cardiomyopathy; I27.21 Secondary pulmonary arterial hypertension; Z95.1 Presence of aortocoronary bypass graft
CPT/HCPCS: 93798

== ENCOUNTER → 2020-03-25 11:45 | Outpatient (CLI) | payer MEDICARE, SELFPAY ==
[2019-10-29 09:27] VITALS: BMI 22.3
[2020-03-25 12:32] LABS: Absolute Lymphocyte Count 2.83 X10^3/uL (0.83-4.51); Absolute Neutrophil Count 9.2 X10^3/uL (2.0-7.7); Basophil% 0.7 % (0-1); Eosinophil# 0.33 X10^3/uL; Eosinophils% 2.5 % (0-5); Hematocrit 41.2 % (37-47); Hemoglobin 13.2 g/dL (12.0-15.0); Lymphocyte # 2.83 X10^3/ul (4.0); Lymphocyte % 21.1 % (19-41); Mean Corpuscular Hgb 30.3 pg (27.0-32.0); Mean Corpuscular Volume 94.5 fL (81-99); Mean Platelet Vol. 9.3 fl (6.2-12.0); Monocyte# 0.95 X10^3/uL; Monocyte% 7.1 % (0-10); NRBC Flagged by Analyzer 0 % (0-5); Neutrophil # 9.15 X10^3/uL (2.7-7.7); Neutrophil % 68.2 % (47-70); Platelet Count 314 K/mm3 (150-450); RBC Distribution Width CV 14.6 % (11.6-14.6); RBC Distribution Width SD 50.8 fl (35.1-43.9); Red Blood Count 4.36 M/mm3 (4.2-5.4); White Blood Count 13.4 K/mm3 (4.4-11.0)
[2020-03-25 12:57] LABS: ALB/GLOB Ratio 0.8 RATIO (0.9-2.4); AST(SGOT) 21 U/L (15-37); Alanine Aminotransfer ALT/SGPT 31 U/L (13-56); Albumin, Serum 3.3 g/dL (3.2-5.0); Alkaline Phosphatase 87 U/L (45-117); Anion Gap 10 (5-15); BUN 31 mg/dL (7-18); BUN/Creat Ratio 19.7 RATIO (10-20); Calcium,Total 8.6 mg/dL (8.5-10.1); Chloride 108 mmol/L (98-107); Creatinine, Serum 1.57 mg/dL (0.55-1.02); EST Glomerular Filtration Rate 34 mL/min (>60); Est Glom Filt Rate - Afr Amer 42 mL/min (>60); Globulin 3.9 g/dL (2.2-4.2); Glucose 154 mg/dL (74-106); Potassium 3.9 mmol/L (3.5-5.1); Protein, Total 7.2 g/dL (6.4-8.2); Sodium Level 141 mmol/L (136-145); Thyroid Stim Hormone (TSH) 1.49 uIU/mL (0.358-3.74)
[2020-03-25 13:29] LABS: Vitamin D,25 Hydroxy 23.7 ng/mL
== END ==
PROVIDERS: PCP Family Medicine Geriatric Medicine; Visit Provider Family Medicine Geriatric Medicine
DX: I10 Essential (primary) hypertension (principal); E11.9 Type 2 diabetes mellitus without complications; E55.9 Vitamin D deficiency, unspecified
CPT/HCPCS: 36415; 80053; 82306; 84443; 85025

== ENCOUNTER → 2020-12-23 16:34 | Outpatient (CLI) | payer MEDICARE, SELFPAY ==
[2020-12-23 16:07] VITALS: BMI 22.6
[2020-12-23 18:46] LABS: Anion Gap 9 (5-15); BUN 24 mg/dL (7-18); Calcium,Total 8.3 mg/dL (8.5-10.1); Chloride 104 mmol/L (98-107); EST Glomerular Filtration Rate 36 mL/min (>60); Est Glom Filt Rate - Afr Amer 44 mL/min (>60); Glucose 168 mg/dL (74-106); Potassium 2.2 mmol/L (3.5-5.1); Sodium Level 142 mmol/L (136-145)
== END ==
PROVIDERS: PCP Family Medicine Geriatric Medicine; Referring Provider Nurse Practitioner Family; Visit Provider Nurse Practitioner Family
DX: I25.5 Ischemic cardiomyopathy (principal); N18.9 Chronic kidney disease, unspecified
CPT/HCPCS: 36415; 80048

== ENCOUNTER → 2020-12-28 16:31 | Outpatient (CLI) | payer MEDICARE, SELFPAY ==
[2020-12-23 16:07] VITALS: BMI 22.6
[2020-12-28 17:55] LABS: Anion Gap 7 (5-15); BUN 17 mg/dL (7-18); BUN/Creat Ratio 13.7 RATIO (10-20); Calcium,Total 8.5 mg/dL (8.5-10.1); Chloride 111 mmol/L (98-107); Creatinine, Serum 1.24 mg/dL (0.55-1.02); EST Glomerular Filtration Rate 45 mL/min (>60); Est Glom Filt Rate - Afr Amer 54 mL/min (>60); Glucose 195 mg/dL (74-106); Sodium Level 142 mmol/L (136-145)
== END ==
PROVIDERS: PCP Family Medicine Geriatric Medicine; Referring Provider Nurse Practitioner Family; Visit Provider Nurse Practitioner Family
DX: E87.6 Hypokalemia (principal)
CPT/HCPCS: 36415; 80048

== ENCOUNTER → 2021-04-07 16:03 | Outpatient (CLI) | payer MEDICARE, SELFPAY ==
[2020-12-23 16:07] VITALS: BMI 22.6
[2021-04-07 17:20] LABS: Absolute Lymphocyte Count 3.07 X10^3/uL (0.83-4.51); Absolute Neutrophil Count 8.7 X10^3/uL (2.0-7.7); Basophil# 0.08 X10^3/uL; Basophil% 0.6 % (0-1); Eosinophil# 0.29 X10^3/uL; Eosinophils% 2.2 % (0-5); Hematocrit 40.8 % (37-47); Hemoglobin 12.7 g/dL (12.0-15.0); Lymphocyte # 3.07 X10^3/ul (0.83-4.51); Lymphocyte % 23.3 % (19-41); Mean Corp Hgb Conc 31.1 g/dL (32-36); Mean Corpuscular Hgb 29.4 pg (27.0-32.0); Mean Corpuscular Volume 94.4 fL (81-99); Mean Platelet Vol. 10.2 fl (6.2-12.0); Monocyte# 1.03 X10^3/uL; Monocyte% 7.8 % (0-10); NRBC Flagged by Analyzer 0 % (0-5); Neutrophil # 8.69 X10^3/uL (2.7-7.7); Neutrophil % 65.8 % (47-70); Platelet Count 311 K/mm3 (150-450); RBC Distribution Width CV 17.3 % (11.6-14.6); RBC Distribution Width SD 60.6 fl (35.1-43.9); Red Blood Count 4.32 M/mm3 (4.2-5.4); White Blood Count 13.2 K/mm3 (4.4-11.0)
[2021-04-07 18:13] LABS: ALB/GLOB Ratio 0.7 RATIO (0.9-2.4); AST(SGOT) 21 U/L (15-37); Alanine Aminotransfer ALT/SGPT 25 U/L (13-56); Alkaline Phosphatase 110 U/L (45-117); Anion Gap 9 (5-15); BUN 21 mg/dL (7-18); BUN/Creat Ratio 14.3 RATIO (10-20); Calcium,Total 8.6 mg/dL (8.5-10.1); Chloride 113 mmol/L (98-107); Creatinine, Serum 1.47 mg/dL (0.55-1.02); EST Glomerular Filtration Rate 37 mL/min (>60); Est Glom Filt Rate - Afr Amer 45 mL/min (>60); Globulin 4.4 g/dL (2.2-4.2); Glucose 120 mg/dL (74-106); Protein, Total 7.4 g/dL (6.4-8.2); Sodium Level 141 mmol/L (136-145); Thyroid Stim Hormone (TSH) 1.18 uIU/mL (0.358-3.74)
== END ==
PROVIDERS: PCP Family Medicine Geriatric Medicine; Visit Provider Family Medicine Geriatric Medicine
DX: E11.9 Type 2 diabetes mellitus without complications (principal); E55.9 Vitamin D deficiency, unspecified; I10 Essential (primary) hypertension
CPT/HCPCS: 36415; 80053; 82306; 84443; 85025

== ENCOUNTER → 2021-04-18 07:54 | Outpatient (CLI) | payer MEDICARE, SELFPAY ==
[2020-12-23 16:07] VITALS: BMI 22.6
--- NOTE | 2021-04-18 07:58 | CT_ITS ---
STUDY: LOW DOSE CT LUNG CANCER SCREENING REASON FOR EXAM: Female, 76 years old. TOBACCO USE. The patient smokes half a pack per day for 50 years. RADIATION DOSAGE (If Supplied By Facility): CTDIvol = ( 2.01 ) mGy, DLP = ( 74.24 ) mGycm TECHNIQUE: No contrast was administered. Low dose technique was utilized (average mAS-38 and kVp 120). 1.25 mm axial source images with a slice interval of 1.25-mm were reconstructed in lung windows. 2.5 mm axial source images with a slice interval of 2.5-mm were reconstructed in lung windows. 5.0 mm axial source images with a slice interval of 5.0-mm were reconstructed in soft tissue windows. Nodule measured using lung windows on PACS and/or independent workstation with automated measurement of minimum and maximum diameter. Nodule measurement reported as average diameter rounded to the nearest whole number. Growth is defined as an increase ins size of greater than 1.5 mm. COMPARISON: Comparison is made with prior study dated 03/25/2018. NODULES: No suspicious nodules are seen. Emphysema: Hyperinflation. Diffuse emphysematous changes. Stable 2.1; a bulla in the anterior aspect of the right middle lobe. Mild increased linear markings in the anterior lateral aspect of the right middle lobe as well as the lingular segment of the left upper lobe suggestive of scarring. Mild increased markings also seen in the lower lobes suggestive of scarring. Endobronchial lesion: None Aorta: Atherosclerotic calcification of the aortic arch and descending thoracic aorta. Coronary arteries: Prior CABG. Coronary artery calcification. Mediastinal nodes: Stable small mediastinal lymph nodes. Other chest and abdominal findings: Degenerative changes of the thoracic spine. CT/Low Dose CT Lung Screening IMPRESSION: Lung-RADS category 2 - Continue annual screening with LDCT in 12 months. IMPORTANT NOTES FOR USE: ACR Lung-RADS Version 1.1 Assessment Categories Release Date: 2018 Category: Coded 0-4 bases on nodule(s) with highest degree of suspicion. Negative screen is defined as categories 1 and 2; a positive screen is defined as categories 3 and 4. Category 3 and 4A nodules that are unchanged on interval CT should be coded as category 2, and individuals returned to screening in 12 months. Category 4X: Category 3 or 4 nodules with additional imaging findings that increase the suspicion of lung cancer, such as spiculation, GGN that doubles in size in 1 year, enlarged lymph notes, etc. Category Modifiers: S (significant finding unrelated to lung cancer) Electronically Signed: Callum Morataya MD at 12:35 EDT , Service support ,
== END ==
PROVIDERS: PCP Family Medicine Geriatric Medicine; Referring Provider Family Medicine Geriatric Medicine; Visit Provider Family Medicine Geriatric Medicine
DX: F17.210 Nicotine dependence, cigarettes, uncomplicated (principal)
CPT/HCPCS: 71271

== ENCOUNTER → 2021-05-10 15:55 | Outpatient (CLI) | payer MEDICARE, SELFPAY ==
[2020-12-23 16:07] VITALS: BMI 22.6
--- NOTE | 2021-05-10 15:57 | BI_ITS ---
MAMMOGRAPHY - BILATERAL SCREENING REASON FOR EXAM: Female, 76 years old. Routine annual screening examination. PERTINENT HISTORY: Sister with breast cancer. Aunt with breast cancer. History of prior bilateral excisional breast biopsies. TECHNIQUE: Digital bilateral breast ernie (3D mammographic acquisition) in the CC and MLO projections. 2-D mediolateral oblique (MLO) and craniocaudad (CC) views of both breasts were obtained. CAD: Full Field Digital Mammography with Computer Added Detection was performed. COMPARISON: Comparison is made with prior study dated 04/11/2018 and 12/01/2014. FINDINGS: Breast Composition: There are scattered areas of fibroglandular density. There are no dominant masses or suspicious calcifications. No other significant abnormalities are identified. There has been no significant change since the prior study. BI/SCRN MAMM (CAD)W/ERNIE BILAT IMPRESSION: Stable bilateral screening mammogram. Yearly follow-up mammogram recommended. (A) ASSESSMENT CATEGORY: BIRADS Category 1: Negative. A letter regarding these results will be sent to the patient by the facility within 30 days. Approximately 10% of breast cancers are not detected by mammography. A normal mammogram should not delay biopsy of a clinically suspicious abnormality. [id number] Electronically Signed: Callum Morataya MD at 8:04 EDT , Service support ,
== END ==
PROVIDERS: PCP Family Medicine Geriatric Medicine; Referring Provider Family Medicine Geriatric Medicine; Visit Provider Family Medicine Geriatric Medicine
DX: Z12.31 Encounter for screening mammogram for malignant neoplasm of breast (principal)
CPT/HCPCS: 77063; 77067

== ENCOUNTER → 2021-07-06 16:10 | Outpatient (CLI) | payer MEDICARE, SELFPAY ==
[2021-07-06 17:12] LABS: Absolute Lymphocyte Count 2.39 X10^3/uL (0.83-4.51); Absolute Neutrophil Count 7.6 X10^3/uL (2.0-7.7); Basophil# 0.06 X10^3/uL; Basophil% 0.5 % (0-1); Eosinophils% 0.9 % (0-5); Hematocrit 43.8 % (37-47); Hemoglobin 13.7 g/dL (12.0-15.0); Lymphocyte # 2.39 X10^3/ul (0.83-4.51); Lymphocyte % 21.8 % (19-41); Mean Corp Hgb Conc 31.3 g/dL (32-36); Mean Corpuscular Hgb 28.2 pg (27.0-32.0); Mean Corpuscular Volume 90.3 fL (81-99); Mean Platelet Vol. 9.6 fl (6.2-12.0); Monocyte% 7.3 % (0-10); NRBC Flagged by Analyzer 0 % (0-5); Neutrophil # 7.55 X10^3/uL (2.7-7.7); Neutrophil % 69.1 % (47-70); Platelet Count 210 K/mm3 (150-450); RBC Distribution Width CV 17.3 % (11.6-14.6); RBC Distribution Width SD 57.5 fl (35.1-43.9); Red Blood Count 4.85 M/mm3 (4.2-5.4); White Blood Count 10.9 K/mm3 (4.4-11.0)
[2021-07-06 17:23] LABS: Vitamin D,25 Hydroxy 44.1 ng/mL
[2021-07-06 17:33] LABS: ALB/GLOB Ratio 0.8 RATIO (0.9-2.4); AST(SGOT) 34 U/L (15-37); Alanine Aminotransfer ALT/SGPT 41 U/L (13-56); Albumin, Serum 3.2 g/dL (3.2-5.0); Alkaline Phosphatase 119 U/L (45-117); Anion Gap 7 (5-15); BUN 16 mg/dL (7-18); BUN/Creat Ratio 12.2 RATIO (10-20); Calcium,Total 8.3 mg/dL (8.5-10.1); Chloride 106 mmol/L (98-107); Creatinine, Serum 1.31 mg/dL (0.55-1.02); EST Glomerular Filtration Rate 42 mL/min (>60); Est Glom Filt Rate - Afr Amer 51 mL/min (>60); Globulin 4.2 g/dL (2.2-4.2); Glucose 224 mg/dL (74-106); Potassium 3.2 mmol/L (3.5-5.1); Protein, Total 7.4 g/dL (6.4-8.2); Sodium Level 140 mmol/L (136-145); Thyroid Stim Hormone (TSH) 2.08 uIU/mL (0.358-3.74)
== END ==
PROVIDERS: PCP Family Medicine Geriatric Medicine; Visit Provider Family Medicine Geriatric Medicine
DX: E11.9 Type 2 diabetes mellitus without complications (principal); E55.9 Vitamin D deficiency, unspecified; R53.83 Other fatigue
CPT/HCPCS: 36415; 80053; 82306; 84443; 85025

== ENCOUNTER → 2021-10-04 16:12 | Outpatient (CLI) | payer MEDICARE, SELFPAY ==
[2021-10-04 17:05] LABS: Absolute Neutrophil Count 8.2 X10^3/uL (2.0-7.7); Basophil# 0.07 X10^3/uL; Basophil% 0.6 % (0-1); Eosinophil# 0.14 X10^3/uL; Eosinophils% 1.2 % (0-5); Hemoglobin 14.7 g/dL (12.0-15.0); Lymphocyte % 21.7 % (19-41); Mean Corpuscular Hgb 30.3 pg (27.0-32.0); Mean Corpuscular Volume 94.8 fL (81-99); Mean Platelet Vol. 9.2 fl (6.2-12.0); Monocyte# 0.92 X10^3/uL; Monocyte% 7.7 % (0-10); NRBC Flagged by Analyzer 0 % (0-5); Neutrophil # 8.21 X10^3/uL (2.7-7.7); Neutrophil % 68.5 % (47-70); POSITIVE MORPHOLOGY YES; Platelet Count 265 K/mm3 (150-450); RBC Distribution Width CV 20.8 % (11.6-14.6); RBC Distribution Width SD 72.3 fl (35.1-43.9); Red Blood Count 4.85 M/mm3 (4.2-5.4)
[2021-10-04 17:18] LABS: Vitamin D,25 Hydroxy 20.4 ng/mL
[2021-10-04 17:20] LABS: Differential Indicated SCAN CRITERIA MET
[2021-10-04 17:24] LABS: ALB/GLOB Ratio 0.7 RATIO (0.9-2.4); AST(SGOT) 26 U/L (15-37); Alanine Aminotransfer ALT/SGPT 37 U/L (13-56); Albumin, Serum 3.3 g/dL (3.2-5.0); Alkaline Phosphatase 124 U/L (45-117); Anion Gap 9 (5-15); BUN 21 mg/dL (7-18); BUN/Creat Ratio 17.8 RATIO (10-20); Calcium,Total 8.8 mg/dL (8.5-10.1); Chloride 109 mmol/L (98-107); Creatinine, Serum 1.18 mg/dL (0.55-1.02); EST Glomerular Filtration Rate 48 mL/min (>60); Est Glom Filt Rate - Afr Amer 58 mL/min (>60); Globulin 4.7 g/dL (2.2-4.2); Glucose 190 mg/dL (74-106); Potassium 3.8 mmol/L (3.5-5.1); Sodium Level 141 mmol/L (136-145); Thyroid Stim Hormone (TSH) 1.82 uIU/mL (0.358-3.74)
[2021-10-04 18:22] LABS: Differential Comment SCANNED
[2021-10-04 18:23] LABS: Anisocytosis 2+; Macrocytosis 1+; Microcytosis 1+
== END ==
PROVIDERS: PCP Family Medicine Geriatric Medicine; Visit Provider Family Medicine Geriatric Medicine
DX: I10 Essential (primary) hypertension (principal); E11.9 Type 2 diabetes mellitus without complications; E55.9 Vitamin D deficiency, unspecified
CPT/HCPCS: 36415; 80053; 82306; 84443; 85025

== ENCOUNTER → 2021-10-31 13:53 | Outpatient (CLI) | payer MEDICARE, SELFPAY ==
--- NOTE | 2021-10-31 13:54 | ECHOD_ITS ---
Reason For Study: Isch CMP Procedure This was a 2D Doppler, Color Flow transthoracic echocardiogram. Exam performed in department. Left Ventricle Normal LV size. The estimated ejection fraction is 25 %. Stage 2 diastolic dysfunction. There are regional wall motion abnormalities as specified. Mid-Inferior: Akinetic. Infero-Basal: Akinetic. Right Ventricle Normal RV size. Normal systolic function. Atria The left atrium is mildly enlarged. The right atrium is mildly enlarged. Mitral Valve Bileaflet diffuse mitral valve thickening. Moderately severe (3+) eccentric mitral valve insufficiency. Tricuspid Valve Normal tricuspid valve. Mild to moderate (1-2+) tricuspid valve insufficiency. Pulmonary artery systolic pressure is 50 mmHg. Aortic Valve Trisinus/trileaflet aortic valve. Mild (1+) aortic valve insufficiency. Pulmonic Valve Normal pulmonic valve. Great Vessels Normal aortic root. The pulmonary artery is normal size. Normal inferior vena cava. Pericardium/Pleural No pericardial effusion. MMode/2D Measurements & Calculations LVIDd: 5.2 cm IVSd: 1.5 cm LA dimension: 4.3 cm LVIDs: 5.1 cm LVPWd: 0.92 cm FS: 2.2 % LAV(MOD-bp): 74.1 ml LA A4 area: 23.7 cm2 RA A4 area: 22.6 cm2 LAV(MOD-bp) Indexed: 42.7 ml/m2 LAV(MOD-sp2): 73.5 ml LAV(MOD-sp4): 70.5 ml Time Measurements MV dec time: 0.16 sec Doppler Measurements & Calculations MV E max karl: 117.4 cm/sec Lat Peak E' Karl: 5.5 cm/sec Med Peak E' Karl: 4.5 cm/sec MV A max karl: 60.4 cm/sec E/E' lat: 21.5 E/E' med: 26.0 MV E/A: 1.9 MV V2 max: 103.0 cm/sec MV P1/2t max karl: 103.0 cm/sec Ao V2 max: 84.1 cm/sec MV max P.2 mmHg MV P1/2t: 63.3 msec Ao max P.8 mmHg MV V2 mean: 51.2 cm/sec MV dec slope: 476.9 cm/sec2 MV mean P.2 mmHg MVA(P1/2t): 3.5 cm2 MV V2 VTI: 23.6 cm LV V1 max: 64.2 cm/sec PA V2 max: 65.5 cm/sec PI end-d karl: 146.4 cm/sec LV V1 max P.6 mmHg TR max karl: 339.6 cm/sec TR max P.1 mmHg ECHO/Echo Complete Interpretation Summary Normal LV size. The estimated ejection fraction is 25 %. Stage 2 diastolic dysfunction. Moderately severe (3+) eccentric mitral valve insufficiency. Pulmonary artery systolic pressure is 50 mmHg. Compared to previous study, the left ventricular systolic function has worsened .. Ordering Physician: Evin Estrella Referring Physician: Serafin Juan Chi Performed By: Viraj Gonzales RCS
== END ==
PROVIDERS: PCP Family Medicine Geriatric Medicine; Referring Provider Internal Medicine Cardiovascular Disease; Visit Provider Internal Medicine Cardiovascular Disease
DX: I25.5 Ischemic cardiomyopathy (principal); I25.119 Atherosclerotic heart disease of native coronary artery with unspecified angina pectoris; I50.22 Chronic systolic (congestive) heart failure; I13.0 Hypertensive heart and chronic kidney disease with heart failure and stage 1 through stage 4 chronic kidney disease, or unspecified chronic kidney disease; N18.9 Chronic kidney disease, unspecified; I73.9 Peripheral vascular disease, unspecified; E78.5 Hyperlipidemia, unspecified; F17.210 Nicotine dependence, cigarettes, uncomplicated; R60.9 Edema, unspecified; Z95.1 Presence of aortocoronary bypass graft
CPT/HCPCS: 93306

== ENCOUNTER 2022-01-05 12:51 | Outpatient (CLI) | payer MEDICARE, SELFPAY ==
[2022-01-05 17:18] LABS: Absolute Lymphocyte Count 1.96 X10^3/uL (0.83-4.51); Basophil# 0.06 X10^3/uL; Basophil% 0.7 % (0-1); Eosinophil# 0.12 X10^3/uL; Eosinophils% 1.3 % (0-5); Hematocrit 48.2 % (37-47); Hemoglobin 15.8 g/dL (12.0-15.0); Lymphocyte # 1.96 X10^3/ul (0.83-4.51); Lymphocyte % 21.6 % (19-41); Mean Corp Hgb Conc 32.8 g/dL (32-36); Mean Corpuscular Hgb 31.1 pg (27.0-32.0); Mean Corpuscular Volume 94.9 fL (81-99); Mean Platelet Vol. 10.5 fl (6.2-12.0); Monocyte# 0.85 X10^3/uL; Monocyte% 9.4 % (0-10); NRBC Flagged by Analyzer 0 % (0-5); Neutrophil # 6.04 X10^3/uL (2.7-7.7); Neutrophil % 66.6 % (47-70); Platelet Count 200 K/mm3 (150-450); RBC Distribution Width CV 17.1 % (11.6-14.6); Red Blood Count 5.08 M/mm3 (4.2-5.4); White Blood Count 9.1 K/mm3 (4.4-11.0)
[2022-01-05 18:12] LABS: ALB/GLOB Ratio 0.8 RATIO (0.9-2.4); AST(SGOT) 18 U/L (15-37); Alanine Aminotransfer ALT/SGPT 22 U/L (13-56); Albumin, Serum 3.4 g/dL (3.2-5.0); Alkaline Phosphatase 115 U/L (45-117); Anion Gap 7 (5-15); BUN 14 mg/dL (7-18); BUN/Creat Ratio 11.1 RATIO (10-20); Calcium,Total 9.5 mg/dL (8.5-10.1); Chloride 102 mmol/L (98-107); Creatinine, Serum 1.26 mg/dL (0.55-1.02); EST Glomerular Filtration Rate 44 mL/min (>60); Est Glom Filt Rate - Afr Amer 53 mL/min (>60); Glucose 168 mg/dL (74-106); Potassium 3.8 mmol/L (3.5-5.1); Protein, Total 7.4 g/dL (6.4-8.2); Sodium Level 139 mmol/L (136-145); Thyroid Stim Hormone (TSH) 2.01 uIU/mL (0.358-3.74)
== END 2022-01-05 23:59 | disposition home or self-care (01) ==
PROVIDERS: PCP Family Medicine Geriatric Medicine; Visit Provider Family Medicine Geriatric Medicine
DX: E11.9 Type 2 diabetes mellitus without complications (principal); E55.9 Vitamin D deficiency, unspecified; I10 Essential (primary) hypertension
CPT/HCPCS: 36415; 80053; 82306; 84443; 85025

== ENCOUNTER 2022-01-06 12:56 | Outpatient (CLI) | payer MEDICARE, SELFPAY ==
--- NOTE | 2022-01-06 13:02 | VDLE_ITS ---
Reason For Study: Edema RIGHT LEFT GSV is normal. CFV is compressible, spontaneous, competent, CFV is compressible, spontaneous, competent and demonstrates pulsatile venous flow. and demonstrates pulsatile venous flow. FV is compressible, spontaneous, competent and demonstrates pulsatile venous flow. POP V is compressible, spontaneous, competent and demonstrates pulsatile venous flow. T/P Trunk is compressible. PTV is compressible. RT PerV is compressible. Rt GSV was harvested below the knee for CABG Difficult to visualize calf veins due to edema. Procedure This is a venous duplex using B-mode, color flow and spectral Doppler. Exam performed in department. A preliminary report was called and/or faxed to Dr. Juan. VL/Venous Duplex US, Unilateral Interpretation Summary There is no evidence of right lower extremity deep vein thrombosis. Right great saphenous vein appears patent and compressible segmentally. Infrageniculate right great saphen ous vein surgically harvested Normal flow patterns left common femoral vein Pulsitile venous flow consistent with proximal venous hypertension or obstructi on--clinical correlation would be appropriate Technically difficult examination Ordering Physician: Serafin Juan Chi Referring Physician: Serafin Juan Chi Performed By: Shara Encarnacion, DAVIN, RVT
== END 2022-01-06 23:59 | disposition home or self-care (01) ==
PROVIDERS: PCP Family Medicine Geriatric Medicine; Referring Provider Family Medicine Geriatric Medicine; Visit Provider Family Medicine Geriatric Medicine
DX: R60.0 Localized edema (principal)
CPT/HCPCS: 93971

== ENCOUNTER 2022-02-02 17:19 | Outpatient (CLI) | payer MEDICARE, SELFPAY ==
--- NOTE | 2022-02-02 17:25 | RAD_ITS ---
STUDY: LUMBOSACRAL SPINE SERIES--3 VIEWS OF 1730 HOURS ON 02/02/2022 REASON FOR EXAM: A 76-year-old female with lumbar radiculopathy. TECHNIQUE: 3. view(s) of the lumbar spine were obtained. COMPARISON: None FINDINGS: Mild demineralization. No fractures or subluxations. No significant intervertebral disc space narrowing. Moderate anterior and lateral osteophytic degenerative changes L1-2 level. Prominent osteophytic degenerative changes anteriorly and laterally at the L2-3 level L3-4 levels. Suggested narrowing of the lumbar spinal canal that may be indicative of mild lumbar spinal stenosis. No evidence of osseous lytic or sclerotic lesions. 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 RAD/Lumbar Spine 2 or 3 Views IMPRESSION: 1. No vertebral body fractures or subluxations, or intervertebral disc space narrowing. 2. Findings may be indicative of mild lumbar spinal stenosis. 3. Moderate anterior lateral osteophytic degenerative changes at the L1-2 level. 4. Prominent anterior and lateral osteophytic degenerative changes at the L2-3 and L3-4 levels. 5. No osseous lytic, sclerotic or mass lesions. 6. Incidental finding of a 4.4 cm in length by 2.5 cm diameter fusiform aneurysm of the calcified distal abdominal aorta. Electronically Signed: Chavo Newman MD at 1:34 EDT ,
== END 2022-02-02 23:59 | disposition home or self-care (01) ==
LOC: RAD 17:21
PROVIDERS: PCP Family Medicine Geriatric Medicine; Referring Provider Family Medicine Geriatric Medicine; Visit Provider Family Medicine Geriatric Medicine
DX: M54.16 Radiculopathy, lumbar region (principal)
CPT/HCPCS: 72100

== ENCOUNTER 2022-02-13 08:48 | Outpatient (CLI) | payer MEDICARE, SELFPAY ==
--- NOTE | 2022-02-13 08:55 | AAAS_ITS ---
Reason For Study: AAA Aorta Measurements Aorta Doppler Measurements Proximal aorta measures1.89 x 1.89cm. in cross- Peak systolic flow velocities within the proximal sectional axis. aorta measure 65.1 cm/sec. Proximal aorta measures1.90cm. in longitudinal Peak systolic flow velocities within the mid aorta axis. measure 24.8 cm/sec. Mid aorta measures3.26 x 3.26cm. in cross- Peak systolic flow velocities within the distal sectional axis. aorta measure 53.1 cm/sec. Mid aorta measures3.32cm. in longitudinal axis. Distal aorta measures2.84 x 2.82cm. in cross- sectional axis. Distal aorta measures2.89cm. in longitudinal axis. Left Iliac Artery Left iliac artery measures 0.96 x 0.92 cm. in the longitudinal axis. Left iliac artery measures 0.99 cm. in the cross-sectional axis. Peak systolic velocity in the left iliac artery measures 96.2 cm/sec. Right Iliac Artery Right iliac artery measures 0.89 x 0.87 cm. in the cross-sectional axis. Right iliac artery measures 0.87 cm. in the longitudinal axis. Peak systolic velocity in the right iliac artery measures 76.8 cm/sec. Procedure Aorta IVC Iliac vasculature or bypass grafts [id number]. Exam performed in department. VL/AAA Screening Interpretation Summary The intra-abdominal aorta is aneurysmal, with a maximal diameter of 3.32 centim eters. The iliac arteries are normal in caliber bilaterally. The intra-abdominal aorta and iliac arteries appear patent, demonstrating normal, pulsatile arterial flow and normal peak systolic velocities. Ordering Physician: Serafin Juan Referring Physician: Serafin Juan Chi Performed By: Татьяна Salas, RDCS, RVT
== END 2022-02-13 23:59 | disposition home or self-care (01) ==
LOC: CVS 08:49
PROVIDERS: PCP Family Medicine Geriatric Medicine; Visit Provider Family Medicine Geriatric Medicine
DX: I71.4 Abdominal aortic aneurysm, without rupture (principal)
CPT/HCPCS: 76706

== ENCOUNTER → 2022-04-13 | Outpatient (CLI) | payer MEDICARE, SELFPAY ==
[2022-04-13 17:53] LABS: Absolute Lymphocyte Count 1.85 X10^3/uL (0.83-4.51); Absolute Neutrophil Count 6.7 X10^3/uL (2.0-7.7); Basophil# 0.05 X10^3/uL; Basophil% 0.5 % (0-1); Eosinophil# 0.12 X10^3/uL; Eosinophils% 1.3 % (0-5); Hematocrit 41.4 % (37-47); Hemoglobin 12.9 g/dL (12.0-15.0); Lymphocyte # 1.85 X10^3/ul (0.83-4.51); Lymphocyte % 19.6 % (19-41); Mean Corp Hgb Conc 31.2 g/dL (32-36); Mean Corpuscular Volume 99.5 fL (81-99); Mean Platelet Vol. 9.4 fl (6.2-12.0); Monocyte# 0.74 X10^3/uL; Monocyte% 7.8 % (0-10); NRBC Flagged by Analyzer 0 % (0-5); Neutrophil # 6.65 X10^3/uL (2.7-7.7); Neutrophil % 70.6 % (47-70); Platelet Count 246 K/mm3 (150-450); RBC Distribution Width CV 16.7 % (11.6-14.6); RBC Distribution Width SD 60.7 fl (35.1-43.9); Red Blood Count 4.16 M/mm3 (4.2-5.4); White Blood Count 9.4 K/mm3 (4.4-11.0)
[2022-04-13 18:07] LABS: Vitamin D,25 Hydroxy 18.6 ng/mL
[2022-04-13 18:31] LABS: ALB/GLOB Ratio 0.8 RATIO (0.9-2.4); AST(SGOT) 28 U/L (15-37); Alanine Aminotransfer ALT/SGPT 28 U/L (13-56); Albumin, Serum 3.3 g/dL (3.2-5.0); Alkaline Phosphatase 104 U/L (45-117); Anion Gap 10 (5-15); BUN 21 mg/dL (7-18); BUN/Creat Ratio 16.9 RATIO (10-20); Calcium,Total 7.9 mg/dL (8.5-10.1); Chloride 107 mmol/L (98-107); Creatinine, Serum 1.24 mg/dL (0.55-1.02); EST Glomerular Filtration Rate 45 mL/min (>60); Est Glom Filt Rate - Afr Amer 54 mL/min (>60); Glucose 220 mg/dL (74-106); Potassium 3.3 mmol/L (3.5-5.1); Protein, Total 7.3 g/dL (6.4-8.2); Sodium Level 142 mmol/L (136-145); Thyroid Stim Hormone (TSH) 2.14 uIU/mL (0.358-3.74)
== END | disposition home or self-care (01) ==
LOC: POLAB3 14:04
PROVIDERS: PCP Family Medicine Geriatric Medicine; Visit Provider Family Medicine Geriatric Medicine
DX: E11.9 Type 2 diabetes mellitus without complications (principal); E55.9 Vitamin D deficiency, unspecified; I10 Essential (primary) hypertension
CPT/HCPCS: 36415; 80053; 82306; 84443; 85025

== ENCOUNTER 2022-04-19 11:30 | Outpatient (RCR) | payer MEDICARE, SELFPAY ==
--- NOTE | 2022-02-10 16:43 | HP.PTEVAL_ITS ---
Patient's Visit Information MARTHA ESTEVES is a 76 year old F referred to Physical Therapy by Dr. Serafin Juan MD with a diagnosis of LUMBAR RADICULOPATHY. Date of Evaluation: 02/10/22 Physical Therapist: Daniel Estrada PT, Cert MDT, OCS - Visit Plan Frequency: 2x /Week Duration: 4 Weeks Plan: PT INTERVETIONS STRENGTH RIGHT LOWER EXTREMITY ESPECIALLY HIP ,DLS ,POSTURAL EX'S AND FUNCTIONAL STRENGTHNEING - Subjective This 76 y/o female presents to physical therapy with lumbar radiculopathy. Patient has had lumbar pain for several yesars and progressively worse past ~ [address] lawrence PT x-rays showed DDD mod and stenosis. Patient has pain symmetrical lumbar hips to right thigh . Patient had Doppler -. Aggravating factors walking/standing ,lifting. Alleviating factors rest sitting. C/O paresthesia/tingling bilateral feet. Bowel/bladder -. Patient able to sleep . patient has no abnormal night pain. Patient has no h/o trauma. Patient pain affects QOL and function with walking and standing. SOCIAL: . VOCATION: retired - Pain Bilateral Back Pain Intensity (Out of 10): 3 Pain Intensity Range: 4, 10 Right Lower Extremity Pain Intensity (Out of 10): 4 Pain Intensity Range: 10 - Objective POSTURE: mild forward trunk hips/knees flexed. NEURO: c/o bilateral feet paresthesia/tingling ,reflexes L3-4,L4-,L5-S1 1/3. PALPTION: tender LS. SYMTRIES: align. GAIT: ambulates with slow cl with decrease stance time RLE forward posture. LUMAR ROM: flexion mod limited ,extension mod loss, side glides min loss. FLEXABLITY: hamstrings mild tight. MMT (peak force ): quads R 15.8,left 24.3,hamstrings right 17.2 ,left 22.3,hip flexion right 0, left 14.8,hip abd 3 left right 10.3,ankle 4/5 - Special Tests L/S Slump test left side: Negative L/S Slump test right side: Negative L/S Left Straight Leg Raise: Negative L/S Right Straight Leg Raise: Negative - Balance/Special Test Scores Oswestry Low Back Score: 27 - Goals Goal 1:: I with HEP for BACK/legs Goal Time Frame: 4-6 Weeks Goal 2:: Patient to improve quality of gait community distances 80% of the time Goal Time Frame: 4-6 Weeks Goal 3:: Patient to demonstrate 50% improvement with decrease pain and increase strength for gait and function. Goal Time Frame: 4-6 Weeks Goal 4:: Patient to improve back oswestry by 5 points to imp[rove QOL and func tion Goal Time Frame: 4-6 Weeks Goal 5:: Patient to improve strength of quads/hams/hip right by 10 peak force to improve gait Goal Time Frame: 4-6 Weeks - Rehabilitation Potential Physical Therapy Diagnosis: This patient has right hip weakness with lumbar pain and right symptoms to hip and thigh patient right leg is weaker especially hip ,and pain impairs function with walking and standing impairs ADLS' thus benefit from skilled PT Rehabilitation Potential: Good - Anticipated Interventions Patient/Client Instruction: Educate patient on: Condition, Plan of Care For the Purpose of:: To decrease pain, To increase ROM, To improve muscle performance and motor function, To improve ability to perform ADL's, To increase tolerance to activity/condition/position, To improve performance and indep endence with ADL's, To improve ability of physical actions for home/community/work/leisure, To improve health of tissue, To decrease soft tissue restriction, To increase flexibility/ROM, To improve endurance Therapeutic Exercise to Include: Strength training, Body mechanics, Postural training, Flexibilty training, Dynamic Lumbar Stabilization Comment: RLE For the Purpose of:: To decrease pain, To increase ROM, To improve muscle performance and motor function, To improve ability to perform ADL's, To increase tolerance to activity/condition/position, To improve performance and independence with ADL's, To improve ability of physical actions for home/community/work/leisure, To improve health of tissue, To decrease soft tissue restriction, To increase flexibility/ROM, To improve endurance, To reduce risk of recurrence TENS: Yes IF ES: Yes Cryotherapy (ice pack, ice massage): Yes Thermo therapy (hot pack): Yes For the Purpose of:: To decrease pain, To decrease swelling/inflammation, To increase ROM, To improve health of tissue, To decrease soft tissue restriction Thank you for the opportunity to evaluate your patient. For Medicare and Medicare HMO plans, please review the plan of care and approve it. It will need to be FAXED BACK to us at [phone] for Medicare purposes. For Medicare only, by signing this I certify the plan of care. Please let me know if there are questions or concerns regarding this plan of care. Physician Signature: Date:
--- NOTE | 2022-03-16 15:31 | HP.PTREVAL ---
Dr. Serafin Juan MD, It has been my pleasure to treat MARTHA ESTEVES over the last 9 visits for LUMBAR RADICULOPATHY. Please see the progress note below for an update on the physical therapy plan of care! Subjective: Patient symptoms better with less pain ,but conts to be weak Objective/Function: POSTURE: mild forward posture. GAIT: reciprocal pattern slow cl mild decrease stance RLE. MMT: ( peak force): hip flexion 12.7,hamstrings 17.7,quads 21.2. LUMBAR ROM: flexion mod loss ,extension mod loss Plan Plan: CONT WITH POC 2XWEEK FOR 4WEEKS. PT INTERVETIONS STRENGTH RIGHT LOWER EXTREMITY ESPECIALLY HIP ,DLS ,POSTURAL EX'S AND FUNCTIONAL STRENGTHNEING Balance/Gait/Functional tests - Balance/Special Test Scores Oswestry Low Back Score: 20 Goals Goal 1:: I with HEP for BACK/legs Goal Time Frame: 4-6 Weeks Goal Progress: Progressing Goal 2:: Patient to improve quality of gait community distances 80% of the time Goal Time Frame: 4-6 Weeks Goal Progress: Progressing Goal 3:: Patient to demonstrate 60% improvement with decrease pain and increase strength for gait and function.(NEW GOAL) Goal Time Frame: 4-6 Weeks Goal 4:: Patient to improve back oswestry by 5 points to imp[rove QOL and function Goal Time Frame: 4-6 Weeks Goal Progress: Progressing Goal 5:: Patient to improve strength of quads/hams/hip right by 10 peak force to improve gait Goal Time Frame: 4-6 Weeks Goal Progress: Progressing Anticipated Interventions Patient/Client Instruction: Educate patient on: Condition, Plan of Care For the Purpose of:: To decrease pain, To increase ROM, To improve muscle performance and motor function, To improve ability to perform ADL's, To increase tolerance to activity/condition/position, To improve performance and independence with ADL's, To improve ability of physical actions for home/community/work/leisure, To improve health of tissue, To decrease soft tissue restriction, To increase flexibility/ROM, To improve endurance Therapeutic Exercise to Include: Strength training, Body mechanics, Postural training, Flexibilty training, Dynamic Lumbar Stabilization Comment: RLE For the Purpose of:: To decrease pain, To increase ROM, To improve muscle performance and motor function, To improve ability to perform ADL's, To increase tolerance to activity/condition/position, To improve performance and independence with ADL's, To improve ability of physical actions for home/community/work/leisure, To improve health of tissue, To decrease soft tissue restriction, To increase flexibility/ROM, To improve endurance, To reduce risk of recurrence TENS: Yes IF ES: Yes Cryotherapy (ice pack, ice massage): Yes Thermo therapy (hot pack): Yes For the Purpose of:: To decrease pain, To decrease swelling/inflammation, To increase ROM, To improve health of tissue, To decrease soft tissue restriction Please do not hesitate to contact me at [phone] by phone or if you have questions or concerns regarding this new plan of care! Sincerely, Daniel Estrada, PT, Cert MDT, OCS
--- NOTE | 2022-04-19 11:59 | HP.PTDCSUM ---
It has been my pleasure to treat MARTHA ESTEVES referred by Dr. Serafin Juan MD, with the diagnosis of LUMBAR RADICULOPATHY for a total of 17 visit(s). Discharge Date: 04/19/22 Please see the following information for a summary of their discharge status. Subjective: Back pain is better. leg is about same with pain I can move pain Bilateral Back Pain Intensity (Out of 10): 0 Right Lower Extremity Pain Intensity (Out of 10): 3 % Improvement: 50 Objective/Function: POSTURE : mild forward. GAIT: reciprocal pattern slow cl. MMT: quads/hams 4-/5 ,right hip flexion 3-/5,left 3+/5,ankle 4/5. LUMBAR ROM: flexion min loss ,extension mod loss Goal 1:: I with HEP for BACK/legs Goal Progress: Goal Met Goal 2:: Patient to improve quality of gait community distances 80% of the time Goal Progress: Progressing Goal 3:: Patient to demonstrate 60% improvement with decrease pain and increase strength for gait and function.(NEW GOAL) Goal 4:: Patient to improve back oswestry by 5 points to imp[rove QOL and function Goal Progress: Progressing Goal 5:: Patient to improve strength of quads/hams/hip right by 10 peak force to improve gait Goal Progress: Progressing Plan: D/C to pain management Discharge Comments: REFERRED TO PAIN MANAGEMENT PER MD If there are questions or concerns regarding this patient's physical therapy, please feel free to call me at [phone]. Thank you for the referral of this patient. Sincerely, Daniel Estrada, PT, Cert MDT, OCS Balance/Gait/Functional tests - Balance/Special Test Scores Oswestry Low Back Score: 14
== END 2022-04-19 19:00 | disposition home or self-care (01) ==
LOC: PT 11:30
PROVIDERS: PCP Family Medicine Geriatric Medicine; Referring Provider Family Medicine Geriatric Medicine; Visit Provider Family Medicine Geriatric Medicine
DX: M54.16 Radiculopathy, lumbar region (principal)
CPT/HCPCS: 97110; 97162; 97530

== ENCOUNTER → 2022-05-24 | Outpatient (CLI) | payer MEDICARE, SELFPAY ==
--- NOTE | 2022-05-24 13:00 | ECHOD_ITS ---
Reason For Study: ISCH CMP Procedure This was a 2D Doppler, Color Flow transthoracic echocardiogram. Exam performed in department. Left Ventricle Normal LV size. Moderate non compaction noted. The estimated ejection fraction is 25 %. Mid- Inferior: Akinetic. Mid-Posterior: Akinetic. Infero-Basal: Akinetic. Posterior-Basal: Akinetic. There are regional wall motion abnormalities as specified. Right Ventricle Normal RV size. Mild global right ventricular systolic dysfunction. Atria The left atrium is mildly enlarged. The right atrium is moderately enlarged. Mitral Valve Bileaflet diffuse mitral valve thickening. Moderately severe (3+) eccentric mitral valve insufficiency. Tricuspid Valve Normal tricuspid valve. Moderate (2+) tricuspid valve insufficiency. Pulmonary artery systolic pressure is 52 mmHg. Aortic Valve Normal aortic valve. Trisinus/trileaflet aortic valve. Pulmonic Valve Normal pulmonic valve. Great Vessels Normal aortic root. The pulmonary artery is normal size. The inferior vena cava is dilated. Pericardium/Pleural Small pericardial effusion. Localized around the right atrium. MMode/2D Measurements & Calculations LVIDd: 5.4 cm IVSd: 1.3 cm CO(Teich): 0.61 l/min LVIDs: 5.2 cm LVPWd: 0.55 cm FS: 3.0 % Ao root diam: 2.8 cm LAV(MOD-bp): 76.0 ml LVAd ap4: 26.3 cm2 LAV(MOD-bp) Indexed: 45.1 ml/m2 LVLd ap4: 7.0 cm LAV(MOD-sp2): 83.6 ml EDV(MOD-sp4): 84.4 ml LAV(MOD-sp4): 65.5 ml EDV(sp4-el): 84.0 ml LVAs ap4: 20.5 cm2 LVLs ap4: 6.3 cm ESV(MOD-sp4): 54.9 ml ESV(sp4-el): 56.4 ml EF(MOD-sp4): 34.9 % EF(sp4-el): 32.9 % LVAd ap2: 37.2 cm2 CO(MOD-sp4): 1.9 l/min SV(MOD-sp2): 57.0 ml LVLd ap2: 7.5 cm SV(MOD-sp4): 29.5 ml EDV(MOD-sp2): 152.9 ml EDV(sp2-el): 156.4 ml LVAs ap2: 28.6 cm2 LVLs ap2: 6.9 cm ESV(MOD-sp2): 95.9 ml ESV(sp2-el): 100.5 ml EF(MOD-sp2): 37.3 % SV(sp4-el): 27.6 ml LA dimension(2D): 4.4 cm LA A4 area: 22.0 cm2 RA A4 area: 28.3 cm2 Time Measurements MV dec time: 0.08 sec Doppler Measurements & Calculations MV E max lenny: 76.4 cm/sec MV V2 max: 102.1 cm/sec MV max P.2 mmHg MV dec slope: 1396 cm/sec2 MV V2 mean: 49.1 cm/sec MV mean P.1 mmHg MV V2 VTI: 24.5 cm Ao V2 max: 144.9 cm/sec LV V1 max: 57.9 cm/sec MR max lenny: 576.4 cm/sec Ao max P.4 mmHg LV V1 max P.3 mmHg MR max P.9 mmHg Ao V2 mean: 106.8 cm/sec LV V1 mean P.70 mmHg MR mean lenny: 416.2 cm/sec Ao mean P.0 mmHg LV V1 mean: 38.3 cm/sec MR mean P.4 mmHg Ao V2 VTI: 43.8 cm LV V1 VTI: 12.4 cm MR VTI: 228.1 cm PA V2 max: 55.3 cm/sec TR max lenny: 333.5 cm/sec PA V2 mean: 37.9 cm/sec TR max P.5 mmHg ECHO/Echo Complete Interpretation Summary Normal LV size. The estimated ejection fraction is 25 %. Moderate non compaction noted Pulmonary artery systolic pressure is 52 mmHg. Moderately severe (3+) eccentric mitral valve insufficiency. Moderate (2+) tricuspid valve insufficiency. Compared to previous study, the left ventricular systolic function is the same. . Ordering Physician: Hortencia Arellano Referring Physician: Hortencia Arellano Performed By: Veronique Mao RCS
== END | disposition home or self-care (01) ==
PROVIDERS: PCP Family Medicine Geriatric Medicine; Referring Provider Nurse Practitioner Gerontology; Visit Provider Nurse Practitioner Gerontology
DX: I25.5 Ischemic cardiomyopathy (principal)
CPT/HCPCS: 93306

== ENCOUNTER → 2022-06-02 | Outpatient (CLI) | payer MEDICARE, SELFPAY ==
--- NOTE | 2022-06-02 17:35 | MRI_ITS ---
EXAM: MR LUMBAR SPINE WITHOUT INTRAVENOUS CONTRAST CLINICAL INDICATION: Low back pain with numbness in the feet and legs. [place] a pop in the back. TECHNIQUE: Multiplanar and multisequence MR images of the lumbar spine without intravenous contrast. Magnetic field strength 1.5 T. This report was created using [employer] report generation technology. COMPARISON: X-ray of the lumbar spine 04/04/2022. FINDINGS: VERTEBRAE: There is a mild burst fracture at L1 with approximately 35% loss of height anteriorly and slight retropulsion. This was not deftly seen on the prior x-ray. There is low signal on T1 and high signal on T2 involving the marrow of the L1 vertebral body. SPINAL CORD: Unremarkable. Normal position and signal intensity of the conus medullaris. SOFT TISSUES: Unremarkable. DISCS/SPINAL CANAL/NEURAL FORAMINA: L1-L2: Slight retropulsion of the posterior superior aspect of the L1 vertebral body without spinal stenosis. Normal neuroforamina. L2-L3: Unremarkable. Normal disc height and morphology. Normal spinal canal and lateral recesses. Normal neuroforamina. L3-L4: Unremarkable. Normal disc height and morphology. Normal spinal canal and lateral recesses. Normal neuroforamina. L4-L5: Intravertebral disc protrusion through the inferior endplate of L4. Slight generalized disc bulge. No spinal canal, foraminal, or lateral recess stenosis. L5-S1: Unremarkable. Normal disc height and morphology. Normal spinal canal and lateral recesses. Normal neuroforamina. MRI/Spine Lumbar (Routine) IMPRESSION: 1. Mild burst fracture L1 vertebral body with approximately 35% loss of height anteriorly and slight retropulsion without spinal stenosis. This was not definitely seen on the prior x-ray dated 04/04/2022. 2. Intravertebral disc protrusion to the inferior endplate of L4 (Schmorl''s node). Mild generalized disc bulge L4-L5 without spinal stenosis. Electronically Signed: Ross Davidson MD at 4:37 EDT ,
== END | disposition home or self-care (01) ==
LOC: MRI 17:28
PROVIDERS: PCP Family Medicine Geriatric Medicine; Visit Provider Anesthesiology Pain Medicine
DX: M51.37 Other intervertebral disc degeneration, lumbosacral region (principal)
CPT/HCPCS: 72148

== ENCOUNTER 2022-06-03 17:54 | Inpatient (IN) | payer MEDICARE, SELFPAY ==
[2022-06-03] VITALS (12 sets, daily range): BP systolic 59–127; BP diastolic 41–93; PULSE 43–171; RESP 14–20; TEMP 35.9–36.6; O2SAT 56–99; BMI 22.6; BMI 22.1
--- NOTE | 2022-06-03 17:59 | EKG12_ITS ---
Test Reason : afib Blood Pressure : / mmHG Vent. Rate : 092 BPM Atrial Rate : 000 BPM P-R Int : 000 ms QRS Dur : 108 ms QT Int : 378 ms P-R-T Axes : 000 116 217 degrees QTc Int : 467 ms Atrial fibrillation with a competing junctional pacemaker Right axis deviation Septal infarct , age undetermined Abnormal ECG Confirmed by DAVEY ABERNATHY, DEMETRA ([id number]), health editor STACEY RIVERS ([id number]) on 06/06/2022 9:27:55 AM Referred By: Bb Confirmed By:DEMETRA MARISCAL MD
--- NOTE | 2022-06-03 18:03 | ED.VIS.DYS ---
HPI History of Present Illness Chief Complaint: Shortness of Breath Informant: patient Onset/Context/Timing Onset: Today Context: sudden, onset, activity on onset and rest Timing: Intermittent Current Severity: Mild Maximum Severity: Moderate Worsened by: Exertion Relieved by: Rest Associated Symptoms Negative for cough Chest Pain: Positive for None Narrative Narrative: Patient has been sitting at home today having intermittent dyspnea and rapid palpitations that occur together. No near-syncope or syncope, chest discomfort, recent leg swelling. She has a history of a CABG and an ischemic cardiomyopathy, she had a routine echocardiogram 10 days ago that showed no change in her EF of 25% with moderate-severe mitral valve insufficiency and moderate tricuspid insufficiency. She denies any recent illness except for having a minor cough after her most recent COVID vaccination injection. EMS states she was in A. fib for them on EKG, this is new for her according to the patient. Sitting at rest at this time she is asymptomatic although she is still in A. fib around 100, when she walked in her home earlier she was faster apparently and more symptomatic. PE Risk Factors: Negative for Cancer, OCP + Smoking + > 35, Prior DVT or PE, Recent immobilization, Recent surgery or Recent travel [facility] Medical History Atherosclerotic heart disease [place] coronary artery w/angina pectoris Chronic edema Chronic kidney disease (CKD) Chronic systolic (congestive) heart failure COPD (chronic obstructive pulmonary disease) Essential (primary) hypertension Hyperlipidemia Ischemic cardiomyopathy Nicotine dependence NSTEMI (non-ST elevated myocardial infarction) (05/31/19) Peripheral vascular occlusive disease Postoperative atrial fibrillation (06/25/19) Secondary pulmonary arterial hypertension Type 2 diabetes mellitus Home Medications aspirin 81 mg tablet,delayed release (Adult Aspirin Regimen) 81 mg PO DAILY 07/10/19 [History Last Taken Unknown] atorvastatin 80 mg tablet 80 mg PO QHS 07/10/19 [History Last Taken Unknown] metformin 500 mg tablet 500 mg PO DAILY 10/18/21 [History Last Taken Unknown] metoprolol tartrate 50 mg tablet 50 mg PO BID #180 tabs 11/08/21 [Rx Last Taken Unknown] sacubitril 49 mg-valsartan 51 mg tablet (Entresto) 1 tab PO BID Pt awaiting pt assistance #14 tabs 12/01/21 [Rx Last Taken Unknown] glimepiride 1 mg tablet 1 mg PO BID 04/20/22 [History Last Taken Unknown] furosemide 40 mg tablet (Lasix) 40 mg PO DAILY edema #30 tabs 05/25/22 [Rx Last Taken Unknown] Allergy/AdvReac Type Severity Reaction Status Date / Time penicillin V AdvReac Severe Unknown; Verified 04/20/22 16:18 ?syncope Family History Mother Hypertension Father Heart disease Surgical History H/O coronary artery bypass surgery (06/24/19) History of angioplasty of peripheral vessel (01/26/11) History of ankle surgery History of hysterectomy History of left heart catheterization (06/02/19) Hx of cholecystectomy Social History Smoking Status: Current every day smoker tobacco type: cigarettes ROS ROS ED Constitutional Constitutional ED: Denies chills or fever(s) Eyes Eyes: Denies change in vision or diplopia ENT ENT ED: Denies rhinorrhea or sore throat Cardiovascular Cardiovascular: Reports palpitations and racing heartbeat; Denies chest pain Respiratory/Chest Respiratory/Chest: Reports dyspnea; Denies cough Gastrointestinal Gastrointestinal: Denies abdominal pain, diarrhea, nausea or vomiting Genitourinary Genitourinary ED: Denies dysuria or hematuria Musculoskeletal Musculoskeletal: Denies back pain or neck pain Integumentary Denies abscess or rash Neurologic Neurologic: Denies headache(s), paresthesias or weakness Psychiatric Psychiatric: Denies anxiety or suicidal thoughts EXAM Physical Exam Const Vital Signs: 06/03/22 17:55 06/03/22 17:55 06/03/22 18:01 Temperature 97.6 F L Temperature Source Oral Pulse Rate 115 H 102 H Respiratory Rate 20 H 18 Respiratory Effort Short of Breath Respiratory Depth Normal Respiratory Pattern Normal Blood Pressure 124/86 H 114/93 H Blood Pressure Mean 98 100 Pulse Ox 76 93 Oxygen Delivery Method Room Air Nasal Cannula Oxygen Flow Rate (L/min) 3 06/03/22 19:16 Temperature Temperature Source Pulse Rate 97 Respiratory Rate 18 Respiratory Effort Respiratory Depth Respiratory Pattern Blood Pressure 127/92 H Blood Pressure Mean 103 Pulse Ox 99 Oxygen Delivery Method Nasal Cannula Oxygen Flow Rate (L/min) 2 Positive well nourished and well developed General Appearance ED: well developed and NAD HEENT Reports moist mucous membranes normocephalic and atraumatic Eyes PERRL and EOMs intact bilaterally Neck full ROM and supple Resp normal respiratory effort and clear to auscultation bilaterally Effort and Inspection: able to speak in complete sentences Cardio regular rate and regular rhythm Cardio Narrative: mildly tachycardic. soft AMBER. Rhythm: abnormal rhythm irregularly irregular GI non-tender and non-distended Auscultation: normoactive bowel sounds Palpation: soft Back/Spine no CVA tenderness General Back: other FROM Extremity normal to inspection General Extremety ED: Yes edema; Negative for pulses abnormal or tenderness General Extremity: edema bilateral lower extremity Details: mild; Negative for pulses abnormal Neuro oriented x3, CN's II-XII intact bilaterally and no sensory deficits noted Sensorium / Orientation: awake and alert Motor Exam: strength 5/5 throughout Skin no rashes or lesions noted and no wounds MDM MDM MDM Narrative Medical decision making narrative: 1 view chest x-ray shows right lower lobe pneumonia on my interpretation. Radiology in agreement. She continues to be in A. fib, I gave her her evening dose of metoprolol 50 mg early, which did keep her rate controlled for the majority of her visit in the 90s. She is not on oxygen at home, she was on it with EMS. We took her off of it, we ambulated her, she did not become very dyspneic and did not drop below 94% or become hypoxic in any way. This makes me think her dyspnea may be more related to her A. fib if she was having RVR prior to arrival. Her troponin ended up being very elevated at 3612. She does not have evidence of an acute injury on the EKG which shows lots of nonspecific repolarization signs. I discussed with cardiology, he advises heparin drip, will likely have a heart catheterization while admitted. Lab Data Attestation: I reviewed the patient's lab results. Labs: Laboratory Results - last 24 hr 06/03/22 06/03/22 06/03/22 18:10 18:10 19:07 WBC 9.8 RBC 4.73 Hgb 14.3 Hct 46.1 MCV 97.5 MCH 30.2 MCHC 31.0 L RDW Std Deviation 62.6 H RDW Coeff of Musa 17.7 H Plt Count 239 MPV 10.4 Immature Gran % (Auto) 0.500 Neut % (Auto) 66.2 Lymph % (Auto) 20.3 [place] % (Auto) 12.5 H Eos % (Auto) 0.1 Baso % (Auto) 0.4 Absolute Neuts (auto) 6.5 Absolute Lymphs (auto) 2.00 Nucleated RBC % 0.2 Sodium Cancelled 140 Potassium Cancelled 3.6 Chloride Cancelled 106 Carbon Dioxide Cancelled 23.0 Anion Gap Cancelled 11 BUN Cancelled 33 H Creatinine Cancelled 1.71 H Estim Creat Clear Calc Cancelled 26.61 Est GFR (MDRD) Af Amer Cancelled 37 L Est GFR (MDRD) Non-Af Cancelled 31 L BUN/Creatinine Ratio Cancelled 19.3 Glucose Cancelled 98 Calcium Cancelled 8.3 L Troponin I High Sens Cancelled 3612 H* Radiography Diagnostic Testing: Clinical Impression(s) from Imaging Studies Chest X-Ray 06/03/22 18:10 IMPRESSION: Right sided pneumonia. There is a right pleural effusion Electronically Signed: Christian Boyce MD at 18:37 EDT Reading Location ID and State: [facility] / [place] , Service support , Rhythm Strip Rhythm Strip: A-fib Rate: 100 Ectopy: None EKG Initial EKG: Attestation: I personally reviewed and interpreted this EKG as follows: Interpretation: No Acute Injury Pattern, Atrial Fibrillation and Non-Specific ST Changes Comments: right axis Prior EKG tracings: available for review Prior: Changed (NSR. axis/morphology unchanged.) Critical Care Time Critical Care Time: Yes Critical care time (excluding procedures): 30-74 minutes (35 min), Including time spent:, Discussing w/Patient &/or Family/Pediatric Intensive Physician, Discussing w/Consultants, Arranging Admission or Transfer and Performing Direct Patient Care at Bedside Discharge Plan Triage Chief Complaint: Shortness of Breath ED Provider: Waylon Pastor Dx/Rx/DC Orders Clinical Impression: Acute non-ST elevation myocardial infarction (NSTEMI), Pneumonia, Atrial fibrillation, new onset Prescriptions: No Action aspirin [Adult Aspirin Regimen] 81 mg tablet,delayed release (DR/EC) 81 mg PO DAILY atorvastatin 80 mg tablet 80 mg PO QHS metformin 500 mg tablet 500 mg PO DAILY glimepiride 1 mg tablet 1 mg PO BID metoprolol tartrate 50 mg tablet 50 mg PO BID Qty: 180 4RF Entresto 49-51 mg tablet 1 tab PO BID Qty: 14 2RF furosemide [Lasix] 40 mg tablet 40 mg PO DAILY Qty: 30 3RF Primary Care Provider: Serafin Juan Chi Referrals: Serafin Juan Chi, MD [Primary Care Provider] - Disposition [facility]position: [facility]
--- NOTE | 2022-06-03 18:10 | RAD_ITS ---
STUDY: X-RAY CHEST REASON FOR EXAM: Female, 77 years old. dyspnea TECHNIQUE: XR Chest 1 View COMPARISON: 05.31.19 FINDINGS: There is a right pleural effusion. Right sided pneumonia. There is borderline cardiomegaly. Normal mediastinum and cat. Normal visualized pulmonary arteries. There is atherosclerotic calcification of the aortic arch with tortuosity. There are diffuse degenerative changes of the visualized thoracic spine. There is degenerative osteoarthritis of the bilateral shoulders. There is no demonstrated abnormality of the visualized soft tissue structures of the upper abdomen. RAD/Chest 1 View (Portable) IMPRESSION: Right sided pneumonia. There is a right pleural effusion Electronically Signed: Christian Boyce MD at 18:37 EDT ,
[2022-06-03 18:22] LABS: Absolute Neutrophil Count 6.5 X10^3/uL (2.0-7.7); Basophil# 0.04 X10^3/uL; Basophil% 0.4 % (0-1); Eosinophil# 0.01 X10^3/uL; Eosinophils% 0.1 % (0-5); Hematocrit 46.1 % (37-47); Hemoglobin 14.3 g/dL (12.0-15.0); Lymphocyte % 20.3 % (19-41); Mean Corpuscular Hgb 30.2 pg (27.0-32.0); Mean Corpuscular Volume 97.5 fL (81-99); Mean Platelet Vol. 10.4 fl (6.2-12.0); Monocyte# 1.23 X10^3/uL; Monocyte% 12.5 % (0-10); NRBC Flagged by Analyzer 0.2 % (0-5); Neutrophil % 66.2 % (47-70); Platelet Count 239 K/mm3 (150-450); RBC Distribution Width CV 17.7 % (11.6-14.6); RBC Distribution Width SD 62.6 fl (35.1-43.9); Red Blood Count 4.73 M/mm3 (4.2-5.4); White Blood Count 9.8 K/mm3 (4.4-11.0)
[2022-06-03] MEDS: Metoprolol Tartrate 50 MG Tablet PO (19:19)
[2022-06-03 20:14] LABS: Anion Gap 11 (5-15); BUN 33 mg/dL (7-18); BUN/Creat Ratio 19.3 RATIO (10-20); Calcium,Total 8.3 mg/dL (8.5-10.1); Chloride 106 mmol/L (98-107); Creatinine, Serum 1.71 mg/dL (0.55-1.02); EST Glomerular Filtration Rate 31 mL/min (>60); Est Glom Filt Rate - Afr Amer 37 mL/min (>60); Estimated Creatinine Clearance 26.61 ml/min; Glucose 98 mg/dL (74-106); Potassium 3.6 mmol/L (3.5-5.1); Sodium Level 140 mmol/L (136-145); Troponin-I HS 3612 pg/mL (3.0-54.0)
--- NOTE | 2022-06-03 20:36 | PCM.HP.STD ---
[facility] - General General Date of Admission: 06/03/22 Date of Service: 06/03/22 Chief Complaint: shortness of breath HPI Narrative MRATHA ESTEVES, is a 77 F with a significant history of heart failure with reduced ejection fraction (echocardiogram on 05/24/2022 showed ejection fraction of 25%); CAD status post triple-vessel CABG; hypertension; CKD and nicotine dependence who presents to the emergency department with 3-day history of progressively worsening shortness of breath. Her shortness of breath is with exertion and it improves with rest. She reports a chronic productive cough of clear sputum that started after getting a COVID booster in September 2021. Her cough has not changed. She reports increasing heart rate and a feeling of skipping heartbeats. Her appetite has been on and off. She denies any constipation or diarrhea. She denies any fever or chills. At emergency on room air with ambulation patient oxygen saturation was 94%. Patient was in A. fib but ventricular rate was generally less than 100. Emergency department doctor gave patient's her home metoprolol. Patient was found to have severely elevated troponin and imaging finding of pneumonia at emergency department On presentation cardiology was at the emergency department to see an outpatient saw patient and made recommendations which included heparin drip. So patient was started on heparin drip from the emergency department. Also patient was given aspirin at 324 mg x 1 at the ED. Patient was initially admitted to the progressive care unit. While at the progressive care unit patient reported chills; she became less responsive. Rapid response was called after which a CODE BLUE was also called. Chest compressions and epinephrine was given. Patient was found to be in PEA. ROSC was achieved. Patient was noted to be hypotensive and A. fib with rapid ventricular response with ventricular rates about 150. Patient was intubated for airway protection. Case was discussed again with sales training coordinator again and patient was transferred to the intensive care unit. [facility] Medical History Atherosclerotic heart disease [place] coronary artery w/angina pectoris Chronic edema Chronic kidney disease (CKD) Chronic systolic (congestive) heart failure COPD (chronic obstructive pulmonary disease) Essential (primary) hypertension Hyperlipidemia Ischemic cardiomyopathy Nicotine dependence NSTEMI (non-ST elevated myocardial infarction) (05/31/19) Peripheral vascular occlusive disease Postoperative atrial fibrillation (06/25/19) Secondary pulmonary arterial hypertension Type 2 diabetes mellitus Home Medications aspirin 81 mg tablet,delayed release (Adult Aspirin Regimen) 81 mg PO DAILY Check with primary doctor 07/10/19 [History Last Taken Unknown] atorvastatin 80 mg tablet 80 mg PO QHS Check with primary doctor 07/10/19 [History Last Taken Unknown] metformin 500 mg tablet 500 mg PO DAILY Check with primary doctor 10/18/21 [History Last Taken Unknown] sacubitril 49 mg-valsartan 51 mg tablet (Entresto) 1 tab PO BID Pt awaiting pt assistance #14 tabs 12/01/21 [Rx Last Taken Unknown] glimepiride 1 mg tablet 1 mg PO BID Check with primary doctor 04/20/22 [History Last Taken Unknown] furosemide 40 mg tablet (Lasix) 40 mg PO DAILY edema #30 tabs 05/25/22 [Rx Last Taken Unknown] metoprolol tartrate 50 mg tablet 50 mg PO BID Check with primary doctor 06/03/22 [History Last Taken Unknown] Allergy/AdvReac Type Severity Reaction Status Date / Time penicillin V AdvReac Severe Unknown; Verified 04/20/22 16:18 ?syncope Family History Mother Hypertension Father Heart disease Surgical History H/O coronary artery bypass surgery (06/24/19) History of angioplasty of peripheral vessel (01/26/11) History of ankle surgery History of hysterectomy History of left heart catheterization (06/02/19) Hx of cholecystectomy Social History Smoking Status: Current every day smoker tobacco type: cigarettes ROS ROS Narrative Pertinent positives and pertinent negatives as noted in HPI. All other systems were reviewed and are negative. Vital Signs Vital Signs Vital Signs: 06/03/22 17:55 06/03/22 17:55 06/03/22 18:01 Temperature 97.6 F L Temperature Source Oral Pulse Rate 115 H 102 H Respiratory Rate 20 H 18 Respiratory Effort Short of Breath Respiratory Depth Normal Respiratory Pattern Normal Blood Pressure 124/86 H 114/93 H Blood Pressure Mean 98 100 Pulse Ox 76 93 Oxygen Delivery Method Room Air Nasal Cannula Oxygen Flow Rate (L/min) 3 06/03/22 19:16 Temperature Temperature Source Pulse Rate 97 Respiratory Rate 18 Respiratory Effort Respiratory Depth Respiratory Pattern Blood Pressure 127/92 H Blood Pressure Mean 103 Pulse Ox 99 Oxygen Delivery Method Nasal Cannula Oxygen Flow Rate (L/min) 2 Weight Weight: 63.7 kg Body Mass Index (BMI) 22.6 Physical Exam Narrative Initial physical exams when patient was seen at emergency department: General: Well-nourished, well-developed. Head: Normocephalic, atraumatic, no tenderness Eyes: Vision is grossly intact. EOMI ENT, no trauma, moist mucous membranes, no rhinorrhea Neck: Nontender, full range of motion. CVS: Irregularly irregular rate and rhythm. S1-S2 present. Respiratory : clear to auscultation bilaterally, chest wall nontender, no wheezing Abdomen: Soft, nontender, nondistended, normal bowel sounds, no masses : Deferred Back: Nontender, no CVA tenderness, no midline spinal tenderness, deformities, step-offs Extremities: varicose veins on bilateral feet; cold bilateral feet. Nontender full range of motion. Skin: Normal color, no trauma, abrasions Neuro: Alert, oriented, cranial nerves II through XII grossly intact. Psychiatry: Normal mood. Normal affect. Not depressed. Not anxious. Results Lab / Micro Data Result Diagrams: 06/04/22 03:40 06/04/22 03:40 Labs: Laboratory Results - last 24 hr 06/03/22 18:10: WBC 9.8, RBC 4.73, Hgb 14.3, Hct 46.1, MCV 97.5, MCH 30.2, MCHC 31.0 L, RDW Std Deviation 62.6 H, RDW Coeff of Musa 17.7 H, Plt Count 239, MPV 10.4, Immature Gran % (Auto) 0.500, Neut % (Auto) 66.2, Lymph % (Auto) 20.3, [place] % (Auto) 12.5 H, Eos % (Auto) 0.1, Baso % (Auto) 0.4, Absolute Neuts (auto) 6.5, Absolute Lymphs (auto) 2.00, Nucleated RBC % 0.2 06/03/22 18:10: Sodium Cancelled, Potassium Cancelled, Chloride Cancelled, Carbon Dioxide Cancelled, Anion Gap Cancelled, BUN Cancelled, Creatinine Cancelled, Estim Creat Clear Calc Cancelled, Est GFR (MDRD) Af Amer Cancelled, Est GFR (MDRD) Non-Af Cancelled, BUN/Creatinine Ratio Cancelled, Glucose Cancelled, Calcium Cancelled, Troponin I High Sens Cancelled 06/03/22 19:07: Sodium 140, Potassium 3.6, Chloride 106, Carbon Dioxide 23.0, Anion Gap 11, BUN 33 H, Creatinine 1.71 H, Estim Creat Clear Calc 26.61, Est GFR (MDRD) Af Amer 37 L, Est GFR (MDRD) Non-Af 31 L, BUN/Creatinine Ratio 19.3, Glucose 98, Calcium 8.3 L, Troponin I High Sens 3612 H* Rhythm Strip Rhythm Strip: A-fib Rate: 100 Ectopy: None Radiology Impression Chest X-Ray 06/03/22 18:10 IMPRESSION: Right sided pneumonia. There is a right pleural effusion Electronically Signed: Christian Boyce MD at 18:37 EDT Reading Location ID and State: [facility] / [place] , Service support , Assessment & Plan Assessment/Plan (1) Pneumonia: (2) Atrial fibrillation, new onset: (3) Acute non-ST elevation myocardial infarction (NSTEMI): (4) GILBERTO (acute kidney injury): (5) Chronic systolic (congestive) heart failure: (6) Cardiac arrest: PLAN: Plan Cardiac arrest Achieve ROSC. Placed on multiple pressors. On ventilator. Continue to monitor on telemetry. Transfer from PCU to intensive care unit. Weblogic Administrator consult. Septic Shock secondary to Pneumonia Patient with tachycardia and tachypnea patient encephalopathic. Patient developed hypotension with systolic blood pressure less than 90. Blood culture ?2 is ordered Chest x-ray was visualized and independently interpreted. I agree with radiologist interpretation of right-sided pneumonia with right pleural effusion. Respiratory Gram stain and culture pending Antibiotics: Ceftriaxone and azithromycin was ordered at the emergency department. Patient had a cardiac arrest at the emergency department and will escalate therapy. Vancomycin and Zosyn ordered. Legionella antigen screen and Strep antigen ordered Atrial fibrillation Discussed case with cardiology amiodarone drip and bolus ordered; and Levophed. However patient and requiring multiple pressors. Discussed with cardiology. Amiodarone not started. Heparin drip started emergency department and continued. Later there was coffee-ground emesis from OG tube. Discussed with cardiology and heparin drip stopped. With rising troponin that Secondary to chest compression; and with decline in coffee-ground emesis resume heparin drip. If coffee-ground emesis persists stop heparin. Echocardiogram on 05/24/2022 was reviewed. Echocardiogram showed ejection fraction of 25%. Moderately severe eccentric mitral valve insufficiency. Moderate tricuspid valve insufficiency. Pulmonary artery systolic pressure was 53 mmHg. On presentation potassium was 3.6. 20 mEq of potassium was ordered. Repeat potassium later on was 5.4. Calcium gluconate and bicarbonate ordered. Magnesium on presentation was 1.3; replete. Trend. TSH on 04/13/2022 was 2.14. TSH on 06/04/2022 5.56. Likely euthyroid syndrome. Non-ST elevation SC Of note patient has a history of triple vessel CABG about 3 years ago Initial troponin was 3612. Repeat was 2813. After CPR troponin level is 10,159. Heparin drip as above. Aspirin as above GILBERTO on CKD stage IIIb IV fluids and pressors as above. Hold home diuresis. Trend CMP. Hypoglycemia Blood glucose in the 30s. Dextrose ampule and infusion given. Hypocalcemia Replete. Trend CMP. Chronic heart failure. Unclear whether acute at this time. Because of hypotension received normal saline bolus and was started on pressors. Placed on telemetry to ICU. Cardiology consult. DVT prophylaxis: Heparin drip as above. CODE STATUS: At the emergency department at history taking patient stated that she does not want any chest compressions but intubation was okay. However orders were not placed immediately. Patient coded and had chest compressions. At this time family want to decide on further CODE STATUS. Charges/Coding Visit Charges Inpatient E&M: 26029 Init Hosp L3
[2022-06-03 21:04] LABS: International Normalized Ratio 3.1; Prothrombin Time (Protime)PT. 31.3 SECONDS (11.7-14.9)
[2022-06-03 21:05] LABS: Partial Thromboplast Time 38.9 Seconds (24.1-36.2)
[2022-06-03] MEDS: Aspirin 81 MG TAB.CHEW 324 MG PO (21:12)
[2022-06-03] MEDS: Heparin Injection (Vial) 5,000 UNIT/ML VIAL 4000 UNIT IV (21:12)
[2022-06-03] MEDS: HEPARIN/D5w 25,000 UNITS 25,000 UNITS/250 ML IV.SOLN. 8 UNITS CONT INF ×2 (21:16→23:24)
[2022-06-03 21:24] LABS: Magnesium 1.3 mg/dL (1.6-2.6)
--- NOTE | 2022-06-03 21:36 | CON.PCM.CA_ITS ---
Assessment & Plan Assessment/Plan (1) Atherosclerotic heart disease [place] coronary artery w/angina pectoris: (2) H/O coronary artery bypass surgery: (3) Chronic systolic (congestive) heart failure: (4) Ischemic cardiomyopathy: (5) Chronic kidney disease (CKD): (6) Hyperlipidemia: QUALIFIERS: Hyperlipidemia type: unspecified Qualified Code(s): E78.5 - Hyperlipidemia, unspecified (7) Essential (primary) hypertension: (8) Nicotine dependence: QUALIFIERS: Nicotine product type: cigarettes Substance use status: uncomplicated Qualified Code(s): F17.210 - Nicotine dependence, cigarettes, uncomplicated (9) Peripheral vascular occlusive disease: (10) Acute non-ST elevation myocardial infarction (NSTEMI): (11) Atrial fibrillation, new onset: PLAN: 77-year-old patient with known history of CAD, has CABG in June 24, 2019 And also has multiple other medical problems with CKD, peripheral vascular disease and recent echocardiogram showed severe LV systolic dysfunction ejection fraction of 25%, moderate to severe eccentric MR, moderate pulmonary hypertension with pulmonary artery systolic pressure around 52 mmHg and a small pericardial effusion. Patient had history of nicotine dependence. Patient had ischemic cardio myopathy, hypertension, hyperlipidemia and peripheral vascular disease In this admission noted she had significantly elevated cardiac biomarker with a troponin I level 3612 Cardiac care plan recommendations; 1. We will admit to PCU 2. Start on heparin, aspirin, beta-jean, atorvastatin Will have a series of cardiac enzymes and repeat echocardiogram on Sunday 3. Discussed the need of cardiac catheterization to assess [place] and bypass grafts on Sunday HPI Consult Data Date of Consult: 06/03/22 HPI Narrative Reason for Consultation: CAD status post CABG/non-STEMI/paroxysmal A. fib HPI Narrative: MARTHA ESTEVES, is a 77 F who presents [facility] Medical History Atherosclerotic heart disease [place] coronary artery w/angina pectoris Chronic edema Chronic kidney disease (CKD) Chronic systolic (congestive) heart failure COPD (chronic obstructive pulmonary disease) Essential (primary) hypertension Hyperlipidemia Ischemic cardiomyopathy Nicotine dependence NSTEMI (non-ST elevated myocardial infarction) (05/31/19) Peripheral vascular occlusive disease Postoperative atrial fibrillation (06/25/19) Secondary pulmonary arterial hypertension Type 2 diabetes mellitus Home Medications aspirin 81 mg tablet,delayed release (Adult Aspirin Regimen) 81 mg PO DAILY Check with primary doctor 07/10/19 [History Last Taken Unknown] atorvastatin 80 mg tablet 80 mg PO QHS Check with primary doctor 07/10/19 [History Last Taken Unknown] metformin 500 mg tablet 500 mg PO DAILY Check with primary doctor 10/18/21 [History Last Taken Unknown] sacubitril 49 mg-valsartan 51 mg tablet (Entresto) 1 tab PO BID Pt awaiting pt assistance #14 tabs 12/01/21 [Rx Last Taken Unknown] glimepiride 1 mg tablet 1 mg PO BID Check with primary doctor 04/20/22 [History Last Taken Unknown] furosemide 40 mg tablet (Lasix) 40 mg PO DAILY edema #30 tabs 05/25/22 [Rx Last Taken Unknown] metoprolol tartrate 50 mg tablet 50 mg PO BID Check with primary doctor 06/03/22 [History Last Taken Unknown] Allergy/AdvReac Type Severity Reaction Status Date / Time penicillin V AdvReac Severe Unknown; Verified 04/20/22 16:18 ?syncope Family History Mother Hypertension Father Heart disease Surgical History H/O coronary artery bypass surgery (06/24/19) History of angioplasty of peripheral vessel (01/26/11) History of ankle surgery History of hysterectomy History of left heart catheterization (06/02/19) Hx of cholecystectomy Social History Smoking Status: Current every day smoker tobacco type: cigarettes Physical Exam Narrative Seen and evaluated in the ER Presented with shortness of breath and palpitation facility sales and admin showed underlying atrial fibrillation with RVR S1-S2 regular, systolic murmur heard in the mitral valve area Chest exam normal auscultation bilateral Risk Stratification Risk Stratification Applicable: Yes Age >/= 65: Yes >/= 3 CAD Risk Factors (HTN, HLD, DM, family hx of CAD, or current smoker): Yes Aspirin Use in the Past 7 Days: No Severe Angina (>/= episodes in 24 hours): No EKG ST Changes >/= 0.5mm: No Positive Cardiac Marker: Yes FIDELINA Risk Stratification Score: 3 FIDELINA % Risk: 13% Risk Objective Data Vital Signs: Vital Signs Temp Pulse Resp BP Pulse Ox O2 Del Method O2 Flow Rate 97.9 F 101 H 16 114/85 H 97 Room Air 2 06/03/22 21:23 06/03/22 21:23 06/03/22 21:23 06/03/22 21:23 06/03/22 21:23 06/03/22 21:23 06/03/22 19:16 Oxygen Flow Rate (L/min) 2 Oxygen Delivery Method Room Air Weight: 140 lb 6.951 oz Body Mass Index (BMI) 22.6 Lab / Micro Data Result Diagrams: 06/03/22 18:10 06/03/22 19:07 Labs: Laboratory Results - last 24 hr 06/03/22 18:10: WBC 9.8, RBC 4.73, Hgb 14.3, Hct 46.1, MCV 97.5, MCH 30.2, MCHC 31.0 L, RDW Std Deviation 62.6 H, RDW Coeff of Musa 17.7 H, Plt Count 239, MPV 10.4, Immature Gran % (Auto) 0.500, Neut % (Auto) 66.2, Lymph % (Auto) 20.3, [place] % (Auto) 12.5 H, Eos % (Auto) 0.1, Baso % (Auto) 0.4, Absolute Neuts (auto) 6.5, Absolute Lymphs (auto) 2.00, Nucleated RBC % 0.2 06/03/22 18:10: Sodium Cancelled, Potassium Cancelled, Chloride Cancelled, Carbo n Dioxide Cancelled, Anion Gap Cancelled, BUN Cancelled, Creatinine Cancelled, Estim Creat Clear Calc Cancelled, Est GFR (MDRD) Af Amer Cancelled, Est GFR (MDRD) Non-Af Cancelled, BUN/Creatinine Ratio Cancelled, Glucose Cancelled, Calcium Cancelled, Troponin I High Sens Cancelled 06/03/22 19:07: Sodium 140, Potassium 3.6, Chloride 106, Carbon Dioxide 23.0, Anion Gap 11, BUN 33 H, Creatinine 1.71 H, Estim Creat Clear Calc 26.61, Est GFR (MDRD) Af Amer 37 L, Est GFR (MDRD) Non-Af 31 L, BUN/Creatinine Ratio 19.3, Glucose 98, Calcium 8.3 L, Troponin I High Sens 3612 H* 06/03/22 19:07: Magnesium 1.3 L 06/03/22 20:50: PT 31.3 H, INR 3.1, APTT 38.9 H Rhythm Strip Rhythm Strip: A-fib Rate: 100 Ectopy: None Cardiology Labs/Tests 06/03/22 18:10: WBC 9.8, RBC 4.73, Hgb 14.3, Hct 46.1, MCV 97.5, MCH 30.2, MCHC 31.0 L, Plt Count 239, MPV 10.4, Immature Gran % (Auto) 0.500, Neut % (Auto) 66.2, Lymph % (Auto) 20.3, [place] % (Auto) 12.5 H, Eos % (Auto) 0.1, Baso % (Auto) 0.4, Absolute Neuts (auto) 6.5, Nucleated RBC % 0.2 06/03/22 18:10: Sodium Cancelled, Potassium Cancelled, Chloride Cancelled, Carbon Dioxide Cancelled, Anion Gap Cancelled, BUN Cancelled, Creatinine Cancelled, Est GFR (MDRD) Af Amer Cancelled, Est GFR (MDRD) Non-Af Cancelled, BUN/Creatinine Ratio Cancelled, Glucose Cancelled, Calcium Cancelled 06/03/22 19:07: Sodium 140, Potassium 3.6, Chloride 106, Carbon Dioxide 23.0, Anion Gap 11, BUN 33 H, Creatinine 1.71 H, Est GFR (MDRD) Af Amer 37 L, Est GFR (MDRD) Non-Af 31 L, BUN/Creatinine Ratio 19.3, Glucose 98, Calcium 8.3 L 06/03/22 19:07: Magnesium 1.3 L 06/03/22 20:50: PT 31.3 H, INR 3.1, APTT 38.9 H Rhythm: A. fib with RVR Radiography Diagnostic Testing: Radiology Impression Chest X-Ray 06/03/22 18:10 IMPRESSION: Right sided pneumonia. There is a right pleural effusion Electronically Signed: Christian Boyce MD at 18:37 EDT ,
--- NOTE | 2022-06-03 21:49 | EKG12_ITS ---
Test Reason : Blood Pressure : / mmHG Vent. Rate : 150 BPM Atrial Rate : 000 BPM P-R Int : 000 ms QRS Dur : 104 ms QT Int : 262 ms P-R-T Axes : 000 104 -63 degrees QTc Int : 413 ms Atrial fibrillation with rapid ventricular response Rightward axis Minimal voltage criteria for LVH, may be normal variant ( Alfredo product ) ST & T wave abnormality, consider inferolateral ischemia Abnormal ECG When compared with ECG of 23-JUN-2008 07:49, Significant changes have occurred Confirmed by DAVEY ABERNATHY, DEMETRA ([id number]), staff editor STACEY RIVERS ([id number]) on 06/07/2022 12:51:57 PM Referred By: Confirmed By:DEMETRA MARISCAL MD
[2022-06-03] MEDS: 0.9% Normal Saline 1,000 ML 50 ML IV (22:07)
[2022-06-03 23:25] LABS: Bedside Glucose 148 mg/dL (74-106)
--- NOTE | 2022-06-03 23:30 | CB_ITS ---
Code Blue Report Code Blue Summary Code Blue Summary: When patient was transferred from emergency department to the progressive care unit. She complained of chills. Later patient was found to be shaking and her eyes rolled back. Rapid response was initially called. Rapid response was changed to CODE BLUE. Patient will receive CPR with epinephrine pushes. Patient achieved ROSC. With her code patient was in PEA. Patient was intubated. Case was discussed with brazing machine operator helper. Patient transferred to the ntensive care unit.
--- NOTE | 2022-06-03 23:30 | PCM.PN.BLA ---
Progress Note Intubation Indication: Impending respiratory failure Consent was obtained from: Patient daughter was at bedside The patient was placed in the appropriate sniffing position. Preoxygenated sedation via Ambu bag and was provided for a minimum of 3 minutes. The patient had continuous cardiac as well as pulse oximetry monitoring during the procedure. Procedure sedation was provided by the administration of 20 etomidate and 100 of succinylcholine. Direct laryngoscopy was then performed using a number 3 blade, which revealed a grade 2 view. A 7.5 mm endotracheal tube was visualized advancing between the cords to the level of 23 cm at the lip. The stylette was then removed and discarded. Tube placement was confirmed by fogging in the tube along with equal and bilateral breath sounds. Colorimetric change was visualized on the CO2 meter. The cuff was then inflated and the tube secured using a commercially available device. A good pulse oximetry waveform was seen on the monitor throughout the procedure. A portable chest x-ray has been ordered to confirm appropriate placement. The patient tolerated the procedure well. Procedures Hospitalists Procedures: [id number] Insert Emergency Airway
[2022-06-03 23:31] LABS: Troponin-I HS 2813 pg/mL (3.0-54.0)
--- NOTE | 2022-06-03 23:40 | RAD_ITS ---
We are attempting to reach an attending provider to discuss findings. An addendum with communication details will be sent when the communication is complete. STUDY: X-RAY CHEST REASON FOR EXAM: Female, 77 years old. et and og placement TECHNIQUE: Single AP portable semierect view of the chest. 11:27 PM. COMPARISON: Previous chest radiograph of this date, 6:14 PM.. FINDINGS: ET tube has been inserted with its tip projected over the trachea, 6 cm above fabiano. NG tube has been inserted and extends into the stomach; the tip of the tube is projected over the proximal gastric body. The sidehole of tube is projected just above the level of the GE junction. Stomach is decompressed. Pneumoperitoneum is now present beneath the right hemidiaphragm. Sternal wires are again noted. Epicardial pacing leads remain in place. Heart size remains mildly enlarged with normal pulmonary vasculature for technique. There is increased hazy density within the right mid to lower lung, consistent with posterior layering pleural fluid. There is questionable minimal infiltrate along the medial right hemidiaphragm. Left lung is clear. No pneumothorax is noted. Suture material noted within the right mid abdomen. RAD/CXR for Line Placement IMPRESSION: Satisfactory ET tube positioning. NG tube in place extending into the stomach; the sidehole of tube lies just above the level of the GE junction and advancement of the tube by 7-[address] it in a more optimal position. Interval development of pneumoperitoneum. Nonstandard communication protocol initiated. Electronically Signed: Maikel Hays MD at 1:02 EDT ,
--- NOTE | 2022-06-03 23:50 | NURSING ---
pt arrived to icu bed 2 post code on PCU, pt intubated 23@lip, no sedation on at this time with no gag or reflux to painful stimuli, pt has vasc changes and mottling to bilat lower extremities. pt nose/ under eyes/ cheeks are blue, pt blood pressure once in icu was stable and pt flipped back into nsr 80-90's. Dr leigh at bedside and she wanted to hold off on starting amiodarone and pressures at this time. pt coloring to face improved as well daughter at bedside and she wants everything done to keep her mother alive.
--- NOTE | 2022-06-03 23:51 | NURSING ---
Addendum entered by Whitney Greenfield 06/04/22 00:10: pt was transferred by the charge nurse and an icu nurse, report was given at bedside. Original Note: This RN just finished admission process when pt c/o feeling cold. Pt denied having chest pain, nor having any other pain. Pt daughter was also in the room, checking on her mom. This RN asked pt to describe how she feels and pt verbally says I feel like i'm gonna faint. Pt then became unresponsive, called for rapid response. Pulse was checked and no pulse was felt, pt was full code and the aid started CPR. Cal hdz called, see code blue documentation. Pt transfer to ICU, pt transfere
[2022-06-04] VITALS (48 sets, daily range): BP systolic 34–155; BP diastolic 12–133; PULSE 7–131; RESP 12–33; TEMP 34.6–36.8; O2SAT 41–89
--- NOTE | 2022-06-04 00:05 | NURSING ---
dr leigh at bedside to place central line. Sedation started d/t pt starting to arouse, dr wanted it started at higher rate so he could place the central line. pt was put in Trendelenburg for line placement. pt bp was extremely low so sedation so stopped. noticed some blood in og tube and LIS was turned on and small amt off coffee grounds removed heparin gtt stopped. lots of bleeding at lt central line failed site. cxr verified tube placement and radiologist called stating that there was free air in abd. Dr leigh stat call dr doll to come in and assist with line placement and to review xray about free air in abd. dr doll seen pt and did not think she perforated any thing but he will continue to follow pt. dr leigh was at bedside until after 0200 assisting with care of pt
[2022-06-04] MEDS: Propofol 10MG/Ml 1,000 MG/100 ML Bottle 3.7 MG CONT INF (00:15)
--- NOTE | 2022-06-04 00:35 | NURSING ---
dr leigh at bedside attempting to place a central line. Pt pox was 40-50% with a decent waveform. respiratory called and dr hayward adjusted peep multi times fio2 was @100%
[2022-06-04] MEDS: 0.9% Normal Saline 1,000 ML 999 ML IV (00:50)
[2022-06-04] MEDS: Phenylephrine 1 MG/10 ML SYRINGE IV (00:58)
[2022-06-04] MEDS: 0.9% Saline Lock 10 ML Syringe IV ×3 (01:02→05:42)
--- NOTE | 2022-06-04 01:10 | NURSING ---
ccentral line placed dr leigh wants levo at 30ml/hr
--- NOTE | 2022-06-04 01:16 | CPS ---
Unable to obtain ABG, despite multiple attempts, due to low BP. Dr. Connell aware
[2022-06-04] MEDS: Sodium Bicarbonate 8.4% 50 ML Syringe 50 MEQ IV ×2 (01:25→05:37)
--- NOTE | 2022-06-04 01:30 | RAD_ITS ---
STUDY: X-RAY CHEST REASON FOR EXAM: Female, 77 years old. central line TECHNIQUE: Single AP portable supine view of the chest. 1:14 AM. COMPARISON: Portable chest radiograph of 06/03/2022, 11:27 PM.. FINDINGS: Right subclavian venous catheter has been inserted without pneumothorax, and its tip is projected at the level of the proximal SVC, in satisfactory position. ET tube remains in place in satisfactory position. NG tube remains in place, extending into the stomach and with the sidehole of the tube again projected at the level of the distal esophagus. The lungs are clear and expanded. There is no demonstrated pleural abnormality. The previously noted pleural effusion is not well seen but may be layering posteriorly on this supine view. Heart size remains mildly enlarged. Supine patient positioning accentuates upper lobe pulmonary vasculature. Thoracic aorta remains elongated and calcific. Findings of prior median sternotomy and CABG are again noted. The previously noted pneumoperitoneum beneath the right hemidiaphragm is again noted but is poorly seen on the submitted supine view. RAD/CXR for Line Placement IMPRESSION: Satisfactory central venous catheter positioning. No pneumothorax. Electronically Signed: Maikel Hays MD at 1:51 EDT ,
--- NOTE | 2022-06-04 01:37 | PCM.PN.BLA ---
Progress Note Central Venous Catheter Indication: Hypotension and lack of vascular access Consent was obtained from: Patient's daughter A time-out was completed verifying correct patient, procedure, site, positioning, and special equipment if applicable. The patient was placed in a dependent position appropriate for central line placement based on the vein to be cannulated. The patient's right neck was prepped and draped in a sterile fashion. 1% lidocaine was used to anesthetize the surrounding skin area. A triple-lumen catheter was introduced into the right IJ using the Seldinger technique and under ultrasound guidance. The catheter was threaded smoothly over the guidewire and appropriate blood return was obtained. Each lumen of the catheter was evacuated of air and flushed with sterile saline. The catheter was then sutured in place to the skin and a sterile dressing applied. Chest x-ray to confirm appropriate positioning is pending. ULTRASOUND GUIDANCE STATEMENT (Vascular Access): I performed ultrasound image acquisition and interpretation for needle placement during the procedure. The vessel was identified and found to be free of thrombosis by compression technique. A safe point of entry was marked at the skin in an angle for axis was determined. The needle was guided by obtaining free-flowing fluid and by real-time visualization. Of notes left IJ was initially attempted but the procedure was unsuccessful. Procedure was successful with right IJ. Procedures Hospitalists Procedures: [id number] Insert Non-tunnel CV Cath
[2022-06-04] MEDS: Epinephrine IV 1 mg/10 ml syringe IV (01:51)
[2022-06-04] MEDS: Magnesium Sulfate 4gm/100mL 4 GM/100 ML IV.SOLN. IV (01:52)
[2022-06-04] MEDS: Hydrocortisone Sod Succinate 100 MG/2 ML Vial 50 MG IV ×2 (01:56→05:41)
--- NOTE | 2022-06-04 02:02 | EX.PCM.CON.S ---
Assessment & Plan Assessment/Plan (1) Pneumoperitoneum of unknown etiology: PLAN: Patient has developed pneumoperitoneum status post aggressive CPR. When she originally presented to the emergency department she was not complaining of any abdominal pain. And on physical exam she did not have any abdominal pain per ER doctor. If patient stabilizes would obtain a CAT scan of the abdomen and pelvis to ascertain if there is truly a pneumoperitoneum as well as the potential source of this pneumoperitoneum. Given her overall condition and other comorbidities unlikely any surgical intervention could be obtained at this time. We will reevaluate her in the a.m. HPI Consult Data Date of Consult: 06/04/22 HPI Narrative HPI Narrative: MARTHA ESTEVES, is a 77 F with a significant history of heart failure with reduced ejection fraction (echocardiogram on 05/24/2022 showed ejection fraction of 25%); CAD status post triple-vessel CABG; hypertension; CKD and nicotine dependence who presents to the emergency department with 3-day history of progressively worsening shortness of breath.? Her shortness of breath is with exertion and it improves with rest.? She reports a chronic productive cough of clear sputum that started after getting a COVID booster in September 2021.? Her cough has not changed. She reports increasing heart rate and a feeling of skipping heartbeats. Her appetite has been on and off.? She denies any constipation or diarrhea.? She denies any fever or chills.? At emergency on room air with ambulation patient oxygen saturation was 94%.? Patient was in A. fib but ventricular rate was generally less than 100.? Emergency department doctor gave patient's her? home metoprolol. Patient was found to have severely elevated troponin and imaging finding of pneumonia at emergency department On presentation cardiology was at the emergency department to see an outpatient saw patient and made recommendations which included heparin drip.? So patient was started on heparin drip from the emergency department.? Also patient was given aspirin at 324 mg x 1 at the ED.? Patient was initially admitted to the progressive care unit.? While at the progressive care unit patient reported chills; she became less responsive.? Rapid response was called after which a CODE BLUE was also called.? Chest compressions and epinephrine was given. Patient was found to be in PEA. ROSC was achieved.? ? Patient was noted to be hypotensive and A. fib with rapid ventricular response with ventricular rates about 150.? Patient was intubated for airway protection.? Case was discussed again with? district resource officer again? and patient was transferred to the intensive care unit. Chest x-ray after her code showed that she had interval development of pneumoperitoneum. Of note the original chest x-ray with her sitting up did not show any signs of pneumoperitoneum in the emergency department. Patient is unresponsive intubated with a line in place. [facility] Medical History Atherosclerotic heart disease [place] coronary artery w/angina pectoris Chronic edema Chronic kidney disease (CKD) Chronic systolic (congestive) heart failure COPD (chronic obstructive pulmonary disease) Essential (primary) hypertension Hyperlipidemia Ischemic cardiomyopathy Nicotine dependence NSTEMI (non-ST elevated myocardial infarction) (05/31/19) Peripheral vascular occlusive disease Postoperative atrial fibrillation (06/25/19) Secondary pulmonary arterial hypertension Type 2 diabetes mellitus Home Medications aspirin 81 mg tablet,delayed release (Adult Aspirin Regimen) 81 mg PO DAILY Check with primary doctor 07/10/19 [History Last Taken Unknown] atorvastatin 80 mg tablet 80 mg PO QHS Check with primary doctor 07/10/19 [History Last Taken Unknown] metformin 500 mg tablet 500 mg PO DAILY Check with primary doctor 10/18/21 [History Last Taken Unknown] sacubitril 49 mg-valsartan 51 mg tablet (Entresto) 1 tab PO BID Pt awaiting pt assistance #14 tabs 12/01/21 [Rx Last Taken Unknown] glimepiride 1 mg tablet 1 mg PO BID Check with primary doctor 04/20/22 [History Last Taken Unknown] furosemide 40 mg tablet (Lasix) 40 mg PO DAILY edema #30 tabs 05/25/22 [Rx Last Taken Unknown] metoprolol tartrate 50 mg tablet 50 mg PO BID Check with primary doctor 06/03/22 [History Last Taken Unknown] Allergy/AdvReac Type Severity Reaction Status Date / Time penicillin V AdvReac Severe Unknown; Verified 04/20/22 16:18 ?syncope Family History Mother Hypertension Father Heart disease Surgical History H/O coronary artery bypass surgery (06/24/19) History of angioplasty of peripheral vessel (01/26/11) History of ankle surgery History of hysterectomy History of left heart catheterization (06/02/19) Hx of cholecystectomy Social History Smoking Status: Current every day smoker tobacco type: cigarettes ROS Review of Systems ROS Unobtainable: due to endotracheal tube Physical Exam Const Constitutional Narrative: Unresponsive intubated on pressors GI GI Narrative: Her abdomen is nondistended. No bowel sounds. Lab / Micro Data Result Diagrams: 06/03/22 18:10 06/03/22 19:07 Labs: Laboratory Results - last 24 hr 06/03/22 18:10: WBC 9.8, RBC 4.73, Hgb 14.3, Hct 46.1, MCV 97.5, MCH 30.2, MCHC 31.0 L, RDW Std Deviation 62.6 H, RDW Coeff of Musa 17.7 H, Plt Count 239, MPV 10.4, Immature Gran % (Auto) 0.500, Neut % (Auto) 66.2, Lymph % (Auto) 20.3, [place] % (Auto) 12.5 H, Eos % (Auto) 0.1, Baso % (Auto) 0.4, Absolute Neuts (auto) 6.5, Absolute Lymphs (auto) 2.00, Nucleated RBC % 0.2 06/03/22 18:10: Sodium Cancelled, Potassium Cancelled, Chloride Cancelled, Carbon Dioxide Cancelled, Anion Gap Cancelled, BUN Cancelled, Creatinine Cancelled, Estim Creat Clear Calc Cancelled, Est GFR (MDRD) Af Amer Cancelled, Est GFR (MDRD) Non-Af Cancelled, BUN/Creatinine Ratio Cancelled, Glucose Cancelled, Calcium Cancelled, Troponin I High Sens Cancelled 06/03/22 19:07: Sodium 140, Potassium 3.6, Chloride 106, Carbon Dioxide 23.0, Anion Gap 11, BUN 33 H, Creatinine 1.71 H, Estim Creat Clear Calc 26.61, Est GFR (MDRD) Af Amer 37 L, Est GFR (MDRD) Non-Af 31 L, BUN/Creatinine Ratio 19.3, Glucose 98, Calcium 8.3 L, Troponin I High Sens 3612 H* 06/03/22 19:07: Magnesium 1.3 L 06/03/22 20:50: PT 31.3 H, INR 3.1, APTT 38.9 H 06/03/22 22:30: Troponin I High Sens 2813 H* 06/03/22 22:37: POC Glucose 148 H Rhythm Strip Rhythm Strip: A-fib Rate: 100 Ectopy: None Radiology Impression Chest X-Ray 06/03/22 18:10 IMPRESSION: Right sided pneumonia. There is a right pleural effusion Electronically Signed: Christian Boyce MD at 18:37 EDT , Chest X-Ray 06/03/22 23:40 IMPRESSION: Satisfactory ET tube positioning. NG tube in place extending into the stomach; the sidehole of tube lies just above the level of the GE junction and advancement of the tube by 7-[address] it in a more optimal position. Interval development of pneumoperitoneum. Nonstandard communication protocol initiated. Electronically Signed: Maikel Hays MD at 1:02 EDT , ADDENDUM: 06/04/22 0116 IMPRESSION: Satisfactory ET tube positioning. NG tube in place extending into the stomach; the sidehole of tube lies just above the level of the GE junction and advancement of the tube by 7-[address] it in a more optimal position. Interval development of pneumoperitoneum. Nonstandard communication protocol initiated. N.B. : The above Results were Read Back by Maikel Hays MD to Allison Moreno RN, and understanding confirmed on 06/04/2022 01:09:35 (ET). Electronically Signed: Maikel Hays MD at 1:02 EDT , Chest X-Ray 06/04/22 01:30 IMPRESSION: Satisfactory central venous catheter positioning. No pneumothorax. Electronically Signed: Maikel Hays MD at 1:51 EDT ,
[2022-06-04 02:41] LABS: Bedside Glucose 93 mg/dL (74-106)
[2022-06-04] MEDS: Epinephrine (SHOCK) 16 mg in 0.9% NS 250 mL 35 MG CONT INF ×2 (02:44→09:26)
[2022-06-04] MEDS: Chlorhexidine 15 ML PO ×2 (03:02→10:37)
--- NOTE | 2022-06-04 03:10 | NURSING ---
family called and verified code status and to have them come in to see pt because her prognosis is very poor. dgt and son came and wanted to keep everything going for life support. they will come back in around 8am with father to discuss with to do next/ code status
[2022-06-04 03:53] LABS: Absolute Lymphocyte Count 1.67 X10^3/uL (0.83-4.51); Absolute Neutrophil Count 8.1 X10^3/uL (2.0-7.7); Basophil# 0.04 X10^3/uL; Basophil% 0.4 % (0-1); Eosinophil# 0.01 X10^3/uL; Eosinophils% 0.1 % (0-5); Hematocrit 45.7 % (37-47); Hemoglobin 12.7 g/dL (12.0-15.0); Lymphocyte # 1.67 X10^3/ul (0.83-4.51); Lymphocyte % 15.2 % (19-41); Mean Corp Hgb Conc 27.8 g/dL (32-36); Mean Corpuscular Volume 107.8 fL (81-99); Mean Platelet Vol. 10.1 fl (6.2-12.0); Monocyte# 0.58 X10^3/uL; Monocyte% 5.3 % (0-10); NRBC Flagged by Analyzer 1.6 % (0-5); Neutrophil # 8.12 X10^3/uL (2.7-7.7); Neutrophil % 74.1 % (47-70); POSITIVE MORPHOLOGY YES; Platelet Count 135 K/mm3 (150-450); RBC Distribution Width CV 17.8 % (11.6-14.6); RBC Distribution Width SD 70.3 fl (35.1-43.9); Red Blood Count 4.24 M/mm3 (4.2-5.4)
[2022-06-04 03:55] LABS: Differential Indicated SCAN CRITERIA MET
[2022-06-04 04:10] LABS: Anisocytosis 2+; Burr Cells RARE; Differential Comment SCANNED; Macrocytosis 2+
[2022-06-04 04:26] LABS: Anion Gap 27 (5-15); BUN 30 mg/dL (7-18); BUN/Creat Ratio 15.3 RATIO (10-20); Calcium,Total 7.4 mg/dL (8.5-10.1); Chloride 109 mmol/L (98-107); Creatinine, Serum 1.96 mg/dL (0.55-1.02); EST Glomerular Filtration Rate 26 mL/min (>60); Est Glom Filt Rate - Afr Amer 32 mL/min (>60); Estimated Creatinine Clearance 23.22 ml/min; Glucose 38 mg/dL (74-106); Potassium 5.4 mmol/L (3.5-5.1); Sodium Level 145 mmol/L (136-145); Thyroid Stim Hormone (TSH) 5.56 uIU/mL (0.358-3.74); Troponin-I HS 10159 pg/mL (3.0-54.0)
[2022-06-04] MEDS: Dextrose 50%-Water 25 GM/50 ML DISP.SYRIN IV (04:42)
[2022-06-04 04:45] LABS: Bedside Glucose 44 mg/dL (74-106)
[2022-06-04] MEDS: Vancomycin IV 1,000 MG/200 ML BAG 200 MG IV (04:45)
--- NOTE | 2022-06-04 05:05 | NURSING ---
dr leigh wanted to restart heparin gtt since no more bleeding from og tube. informed dr that she seemed to be blding quite a bit from skin tear and central line site so ptt drawn.
[2022-06-04 05:24] LABS: M R Staph aureus DNA By PCR Negative (Negative); Probe Check PASS; Specimen Processing Control PASS
[2022-06-04] MEDS: Calcium Gluconate 1 GM/10 ML Vial 2 GM IVP (05:30)
[2022-06-04] MEDS: Dextrose 10% and 0.2% Sod Chl 250 ML 40 ML IV ×2 (05:32→11:57)
--- NOTE | 2022-06-04 06:16 | SEPSIS_ITS ---
Sepsis Note Physical Exam/Vitals Objective: Chest X-Ray 06/03/22 18:10 IMPRESSION: Right sided pneumonia. There is a right pleural effusion Electronically Signed: Christian Boyce MD at 18:37 EDT , Chest X-Ray 06/03/22 23:40 IMPRESSION: Satisfactory ET tube positioning. NG tube in place extending into the stomach; the sidehole of tube lies just above the level of the GE junction and advancement of the tube by 7-[address] it in a more optimal position. Interval development of pneumoperitoneum. Nonstandard communication protocol initiated. Electronically Signed: Maikel Hays MD at 1:02 EDT , ADDENDUM: 06/04/22 0116 IMPRESSION: Satisfactory ET tube positioning. NG tube in place extending into the stomach; the sidehole of tube lies just above the level of the GE junction and advancement of the tube by 7-[address] it in a more optimal position. Interval development of pneumoperitoneum. Nonstandard communication protocol initiated. N.B. : The above Results were Read Back by Maikel Hays MD to Allison Moreno RN, and understanding confirmed on 06/04/2022 01:09:35 (ET). Electronically Signed: Maikel Hays MD at 1:02 EDT , Chest X-Ray 06/04/22 01:30 IMPRESSION: Satisfactory central venous catheter positioning. No pneumothorax. Electronically Signed: Maikel Hays MD at 1:51 EDT , Temp Pulse Resp BP Pulse Ox O2 Del Method O2 Flow Rate 95.6 F L 131 H 16 71/27 L 71 Mechanical Ventilator 2 06/04/22 05:00 06/04/22 05:00 06/04/22 05:00 06/04/22 05:31 06/04/22 05:00 06/04/22 05:00 06/03/22 19:16 FiO2 100 06/04/22 04:09 06/04/22 06/04/22 06/04/22 05:45 05:45 05:45 WBC RBC Hgb Hct MCV MCH MCHC RDW Std Deviation RDW Coeff of Musa Plt Count MPV Immature Gran % (Auto) Neut % (Auto) Lymph % (Auto) [place] % (Auto) Eos % (Auto) Baso % (Auto) Absolute Neuts (auto) Absolute Lymphs (auto) Nucleated RBC % Differential Comment Anisocytosis Macrocytosis Shadia Cells PT INR APTT Pending Sodium Pending Potassium Pending Chloride Pending Carbon Dioxide Pending Anion Gap Pending BUN Pending Creatinine Pending Estim Creat Clear Calc Est GFR (MDRD) Af Amer Pending Est GFR (MDRD) Non-Af Pending BUN/Creatinine Ratio Pending Glucose Pending Lactic Acid Pending Calcium Pending Magnesium Total Bilirubin Pending AST Pending ALT Pending Alkaline Phosphatase Pending Troponin I High Sens Total Protein Pending Albumin Pending TSH MRSA (PCR) POC Glucose 06/04/22 06/04/22 06/04/22 04:27 03:40 03:40 WBC RBC Hgb Hct MCV MCH MCHC RDW Std Deviation RDW Coeff of Musa Plt Count MPV Immature Gran % (Auto) Neut % (Auto) Lymph % (Auto) [place] % (Auto) Eos % (Auto) Baso % (Auto) Absolute Neuts (auto) Absolute Lymphs (auto) Nucleated RBC % Differential Comment Anisocytosis Macrocytosis Shadia Cells PT INR APTT Sodium Potassium Chloride Carbon Dioxide Anion Gap BUN Creatinine Estim Creat Clear Calc Est GFR (MDRD) Af Amer Est GFR (MDRD) Non-Af BUN/Creatinine Ratio Glucose Lactic Acid Calcium Magnesium Total Bilirubin AST ALT Alkaline Phosphatase Troponin I High Sens 19988 H* Total Protein Albumin TSH MRSA (PCR) Negative POC Glucose 44 L* 06/04/22 06/04/22 06/03/22 03:40 03:40 23:31 WBC 11.0 RBC 4.24 Hgb 12.7 Hct 45.7 MCV 107.8 H D MCH 30.0 MCHC 27.8 L D RDW Std Deviation 70.3 H RDW Coeff of Musa 17.8 H Plt Count 135 L MPV 10.1 Immature Gran % (Auto) 4.900 H Neut % (Auto) 74.1 H Lymph % (Auto) 15.2 L [place] % (Auto) 5.3 Eos % (Auto) 0.1 Baso % (Auto) 0.4 Absolute Neuts (auto) 8.1 H Absolute Lymphs (auto) 1.67 Nucleated RBC % 1.6 Differential Comment SCANNED Anisocytosis 2+ Macrocytosis 2+ Shadia Cells RARE PT INR APTT Sodium 145 Potassium 5.4 H Chloride 109 H Carbon Dioxide 9.0 L* Anion Gap 27 H BUN 30 H Creatinine 1.96 H Estim Creat Clear Calc 23.22 Est GFR (MDRD) Af Amer 32 L Est GFR (MDRD) Non-Af 26 L BUN/Creatinine Ratio 15.3 Glucose 38 L* Lactic Acid Calcium 7.4 L Magnesium Total Bilirubin AST ALT Alkaline Phosphatase Troponin I High Sens Total Protein Albumin TSH 5.56 H MRSA (PCR) POC Glucose 93 06/03/22 06/03/22 06/03/22 22:37 22:30 20:50 WBC RBC Hgb Hct MCV MCH MCHC RDW Std Deviation RDW Coeff of Musa Plt Count MPV Immature Gran % (Auto) Neut % (Auto) Lymph % (Auto) [place] % (Auto) Eos % (Auto) Baso % (Auto) Absolute Neuts (auto) Absolute Lymphs (auto) Nucleated RBC % Differential Comment Anisocytosis Macrocytosis Shadia Cells PT 31.3 H INR 3.1 APTT 38.9 H Sodium Potassium Chloride Carbon Dioxide Anion Gap BUN Creatinine Estim Creat Clear Calc Est GFR (MDRD) Af Amer Est GFR (MDRD) Non-Af BUN/Creatinine Ratio Glucose Lactic Acid Calcium Magnesium Total Bilirubin AST ALT Alkaline Phosphatase Troponin I High Sens 2813 H* Total Protein Albumin TSH MRSA (PCR) POC Glucose 148 H 06/03/22 06/03/22 06/03/22 19:07 19:07 18:10 WBC RBC Hgb Hct MCV MCH MCHC RDW Std Deviation RDW Coeff of Musa Plt Count MPV Immature Gran % (Auto) Neut % (Auto) Lymph % (Auto) [place] % (Auto) Eos % (Auto) Baso % (Auto) Absolute Neuts (auto) Absolute Lymphs (auto) Nucleated RBC % Differential Comment Anisocytosis Macrocytosis [place] Cells PT INR APTT Sodium 140 Cancelled Potassium 3.6 Cancelled Chloride 106 Cancelled Carbon Dioxide 23.0 Cancelled Anion Gap 11 Cancelled BUN 33 H Cancelled Creatinine 1.71 H Cancelled Estim Creat Clear Calc 26.61 Cancelled Est GFR (MDRD) Af Amer 37 L Cancelled Est GFR (MDRD) Non-Af 31 L Cancelled BUN/Creatinine Ratio 19.3 Cancelled Glucose 98 Cancelled Lactic Acid Calcium 8.3 L Cancelled Magnesium 1.3 L Total Bilirubin AST ALT Alkaline Phosphatase Troponin I High Sens 3612 H* Cancelled Total Protein Albumin TSH MRSA (PCR) POC Glucose 06/03/22 18:10 WBC 9.8 RBC 4.73 Hgb 14.3 Hct 46.1 MCV 97.5 MCH 30.2 MCHC 31.0 L RDW Std Deviation 62.6 H RDW Coeff of Musa 17.7 H Plt Count 239 MPV 10.4 Immature Gran % (Auto) 0.500 Neut % (Auto) 66.2 Lymph % (Auto) 20.3 [place] % (Auto) 12.5 H Eos % (Auto) 0.1 Baso % (Auto) 0.4 Absolute Neuts (auto) 6.5 Absolute Lymphs (auto) 2.00 Nucleated RBC % 0.2 Differential Comment Anisocytosis Macrocytosis Shadia Cells PT INR APTT Sodium Potassium Chloride Carbon Dioxide Anion Gap BUN Creatinine Estim Creat Clear Calc Est GFR (MDRD) Af Amer Est GFR (MDRD) Non-Af BUN/Creatinine Ratio Glucose Lactic Acid Calcium Magnesium Total Bilirubin AST ALT Alkaline Phosphatase Troponin I High Sens Total Protein Albumin TSH MRSA (PCR) POC Glucose Attestation Sepsis Attestation: Sepsis re-evaluation was performed
--- NOTE | 2022-06-04 06:16 | PCM.RX.CS ---
Consult Pharmacy has been consulted to manage selected antiobiotic: Vancomycin Type of Consult: New start Suspected Infection: Pneumonia Prior Doses of Antibiotics Received/Current Regimen: Medications Vancomycin HCl () 500 mg in 100 mls @ 100 mls/hr IV Q24H YESSI Discontinued Medications Vancomycin HCl (Vancomycin) 1,000 mg in 200 mls @ 200 mls/hr IV X1 ONE Stop: 06/04/22 00:29 Last Admin: 06/04/22 04:45 Dose: 200 mls/hr Microbiology: Microbiology 06/04/22 04:00 Urine Catheter - Mari Legionella Antigen - Final 06/04/22 04:00 Urine Catheter - Mari Streptococcus pneumoniae Antigen (M - Final Weight used for dosin.2 kg Estimated Creatinine Clearance: 23 Goal Trough: 15-20 mcg/mL Pharmacy Plan for Drug Dosing: Pharmacy Service will continue to monitor and adjust dosing as required. Follow-Up Labs: Trough Vancomycin Labs to be done on [date and time ordered]: 06/06/22 @0439
[2022-06-04 06:30] LABS: Bedside Glucose 160 mg/dL (74-106)
[2022-06-04 06:33] LABS: ALB/GLOB Ratio 0.7 RATIO (0.9-2.4); AST(SGOT) 472 U/L (15-37); Alanine Aminotransfer ALT/SGPT 196 U/L (13-56); Albumin, Serum 1.6 g/dL (3.2-5.0); Alkaline Phosphatase 105 U/L (45-117); Anion Gap 26 (5-15); BUN 30 mg/dL (7-18); BUN/Creat Ratio 15.2 RATIO (10-20); Calcium,Total 9.7 mg/dL (8.5-10.1); Chloride 104 mmol/L (98-107); Creatinine, Serum 1.97 mg/dL (0.55-1.02); EST Glomerular Filtration Rate 26 mL/min (>60); Est Glom Filt Rate - Afr Amer 32 mL/min (>60); Globulin 2.2 g/dL (2.2-4.2); Glucose 389 mg/dL (74-106); Potassium 5.2 mmol/L (3.5-5.1); Protein, Total 3.8 g/dL (6.4-8.2); Sodium Level 143 mmol/L (136-145)
[2022-06-04 06:35] LABS: Partial Thromboplast Time > 200.0 Seconds (24.1-36.2)
[2022-06-04 06:51] LABS: Lactic Acid 15.3 mmol/L (0.4-1.9); Magnesium 5.1 mg/dL (1.6-2.6)
--- NOTE | 2022-06-04 07:04 | CON.PCM.CC_ITS ---
Assessment & Plan Assessment/Plan (1) Cardiac arrest: (2) Acute non-ST elevation myocardial infarction (NSTEMI): (3) Pneumonia: (4) Atrial fibrillation, new onset: PLAN: Plan RECOMMENDATIONS: 1. Obtain fibrinogen and D-dimer for DIC 2. Continue mechanical ventilation at current settings 3. Wean PEEP as tolerated 4. Family discussion about goals of therapy prior to further escalation 5. Hold heparin 6. Obtain limited echo if family wishes to remain aggressive IMPRESSIONS: 1. Cardiopulmonary arrest of unclear etiology Patient with an extensive cardiac history and new onset A. fib RVR. Patient also with a right lower lobe infiltrate and hypoxia on presentation. Patient with approximately 5 minutes of CPR prior to ROSC. Cooling is not available. Patient does open eyes, but is not requiring any sedation at this time. 2. Acute hypoxic respiratory failure secondary to problem #1 Patient carries a diagnosis of COPD, but PFT from 2013 shows no obstructive ventilatory defect. Patient is a non-smoker with multiple cardiac issues. Patient now requiring high PEEP. This can be an issue with preload. Patient also has not been able to have an ABG to allow for verification of peripheral pulse ox readings. Patient with obvious increased perfusion given mottling. If family wishes to be aggressive, can attempt an ultrasound-guided ABG for verification. 3. Possible DIC Patient did receive heparin earlier in the hospitalization. However, PTT is greater than 200 and there is oozing from multiple sites. Patient does have a right lower lobe infiltrate suggestive of pneumonia, so DIC is a concern. Fibrinogen will be sent, along with D-dimer. Patient has received antibiotics. 4. Hypoglycemia Patient is on oral hypoglycemic medications at home. Patient has responded to aggressive glucose resuscitation at this point. We will continue to monitor. Cultures are pending, but sepsis would also be another consideration with hypoglycemia. 5. Acute kidney injury Multiple prerenal etiologies including problem #1. Patient is on multiple pressors at this time. Patient does have a decreased albumin and may be leading to significant extravasation of fluids. We will continue to monitor urine output. Patient did have incontinence prior to Mari being placed. 6. Possible septic shock secondary to right lower lobe pneumonia Patient with right lower lobe infiltrate, elevated creatinine and respiratory failure to indicate endorgan damage and an elevated lactate. Concern patient is going into refractory shock with elevated lactate on 3 pr essors and multiple areas of mottling. We will have to discuss with the family about goals of therapy. There was some suggestion that the patient would not want this aggressive therapy. 7. Acute on chronic systolic congestive heart failure/new onset A. fib with RVR/MVR Patient with an extensive history of cardiac difficulties in the past with last known ejection fraction of 25%. New complication of A. fib with RVR. Patient does have an elevated troponin of over 10,000. Patient not able to have anticoagulation at this time secondary to problem #3. If family wishes to be aggressive, repeat limited echo for EF would be indicated. Addendum 9:40 AM: Laboratory data has come back confirming diagnosis of DIC. Discussed with the family (son, daughter and ) at length about the patient's condition. They understand the poor prognosis and patient was transition to a DNR Comfort Care arrest without repeat intubation. They understand that the patient will likely today even with aggressive measures. Family is attempting to call others to arrive and want to spend time with her. They have elected not to do comfort measures for these reasons. TIME: 80 minutes of critical care time spent addressing patient's cardiopulmonary arrest, hypoxic respiratory failure, possible DIC, septic shock, CHF, A. fib with RVR, DIC, review of all data and collaboration with care team HPI Consult Data Date of Consult: 06/04/22 HPI Narrative Reason for Consultation: Arrest overnight HPI Narrative: MARTHA ESTEVES is a 77 F, with past medical history listed below, who presents to [facility] on 06/03/2022 secondary to shortness of breath and palpitations. Patient had not reported any syncope or recent leg swelling. Patient does have a history of ischemic cardiomyopathy with an EF of 25% with moderate to severe mitral valve insufficiency. When EMS arrived, patient was noted to be in A. fib, which is reportedly new for the patient. Given persistent symptoms with ambulation, patient was brought in for an evaluation. In the ER, patient was afebrile, but tachycardic at 115 bpm with a normal blood pressure. Patient was noted to be 76% on room air. Patient was placed on nasal cannula with improvement in saturations. Laboratory data showed a white blood cell count of 9.8, hemoglobin of 14.3 and platelets of 239. Chemistry showed an elevated creatinine of 1.7 with a bicarbonate of 23 and an elevated troponin of 3612. Chest x-ray showed a right pleural effusion with infiltrate. Patient also noted to be in A. fib on EKG without any ST segment elevations. Patient reportedly was seen by cardiology in the emergency department and had recommended the heparin drip. Patient was also given aspirin and admitted to the progressive care unit. Shortly after arriving to the progressive care unit, a CODE BLUE was called. Patient did receive 2 rounds of epinephrine and chest compressions for PEA. ROSC was achieved. Patient was noted to be hypotensive in A. fib with rates around 150. Patient was intubated for airway protection and ultimately placed on pressor therapy. Patient transferred to the intensive care unit. In the intensive care unit, patient has had significant hypoxia leading to a PEEP of 20. Patient also has a central line and is currently receiving 3 press ors and stress dose steroids. Patient was ordered heparin, but this was not started as patient continues to ooze from other IV sites. Surgery was reportedly called in for concerns of a perforated bowel. No surgery was performed. Family reportedly had been to the bedside, but her was not one of them. No change in CODE STATUS was reported. Patient remains a full code. No calls made to critical care overnight for recommendations. On my evaluation this morning, patient opens her eyes to voice, but is not really following commands. Patient does have mottling from her toes to her br east. Patient's mottling of the face is reportedly improved. Patient does have oozing from multiple IV sites. Patient was noted to have a blood glucose of 44, but had received an amp of D50 and was initiated on D10 drip. Repeat blood sugar after 1 hour was 160. 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 Chronic edema Chronic kidney disease (CKD) Chronic systolic (congestive) heart failure COPD (chronic obstructive pulmonary disease) Essential (primary) hypertension Hyperlipidemia Ischemic cardiomyopathy Nicotine dependence NSTEMI (non-ST elevated myocardial infarction) (05/31/19) Peripheral vascular occlusive disease Postoperative atrial fibrillation (06/25/19) Secondary pulmonary arterial hypertension Type 2 diabetes mellitus Home Medications aspirin 81 mg tablet,delayed release (Adult Aspirin Regimen) 81 mg PO DAILY Check with primary doctor 07/10/19 [History Last Taken Unknown] atorvastatin 80 mg tablet 80 mg PO QHS Check with primary doctor 07/10/19 [History Last Taken Unknown] metformin 500 mg tablet 500 mg PO DAILY Check with primary doctor 10/18/21 [History Last Taken Unknown] sacubitril 49 mg-valsartan 51 mg tablet (Entresto) 1 tab PO BID Pt awaiting pt assistance #14 tabs 12/01/21 [Rx Last Taken Unknown] glimepiride 1 mg tablet 1 mg PO BID Check with primary doctor 04/20/22 [History Last Taken Unknown] furosemide 40 mg tablet (Lasix) 40 mg PO DAILY edema #30 tabs 05/25/22 [Rx Last Taken Unknown] metoprolol tartrate 50 mg tablet 50 mg PO BID Check with primary doctor 06/03/22 [History Last Taken Unknown] Allergy/AdvReac Type Severity Reaction Status Date / Time penicillin V AdvReac Severe Unknown; Verified 04/20/22 16:18 ?syncope Family History Mother Hypertension Father Heart disease Surgical History H/O coronary artery bypass surgery (06/24/19) History of angioplasty of peripheral vessel (01/26/11) History of ankle surgery History of hysterectomy History of left heart catheterization (06/02/19) Hx of cholecystectomy Social History Smoking Status: Current every day smoker tobacco type: cigarettes Physical Exam Const Constitutional Narrative: Opens eyes spontaneously, but not moving. Good ventilator synchrony. General Appearance: ill appearing Orientation / Consciousness: obtunded HEENT normocephalic HEENT Narrative: Some mottling of the nose noted Mouth: endotracheal tube in place and OG tube in place Neck no lymphadenopathy Neck Narrative: Oozing from right IJ site Chest inspection of chest normal Resp Auscultation: diminished lung sounds; Negative for rales, rhonchi or wheezes Cardio regular rate, regular rhythm, S1 normal heart sound, S2 normal heart sound, no rub and no gallops Heart Sounds: murmur diastolic III/ low-pitched late LVOT GI Inspection: abdominal distention Palpation: Negative for tender, guarding or rigid Percussion: Negative for fluid wave Extremity General Extremity: edema Skin Skin Narrative: Multiple skin tears. Mottling from toes to breast. Neuro Neuro Narrative: No spontaneous movement. No sedation at this time. Does open eyes spontaneously, but not following commands. Withdrawals to noxious stimuli. Psych Mood & Affect: flat affect Medical Records Data Attestation: I reviewed the patient's medical records Medical records narrative: Patient with an extensive cardiac history. Patient also carries a diagnosis of COPD, type 2 diabetes mellitus and multiple surgeries. It does not appear that the patient has been seen by pulmonary in the past. Patient does have a PFT from 2013 showing no large airways obstructive ventilatory defect and normal lung volumes. Patient did have a decreased DLCO at that time. Lab / Micro Data Attestation: I reviewed the patient's lab results. Result Diagrams: 06/04/22 03:40 06/04/22 05:45 Labs: Laboratory Results - last 24 hr 06/03/22 18:10: WBC 9.8, RBC 4.73, Hgb 14.3, Hct 46.1, MCV 97.5, MCH 30.2, MCHC 31.0 L, RDW Std Deviation 62.6 H, RDW Coeff of Musa 17.7 H, Plt Count 239, MPV 10.4, Immature Gran % (Auto) 0.500, Neut % (Auto) 66.2, Lymph % (Auto) 20.3, [place] % (Auto) 12.5 H, Eos % (Auto) 0.1, Baso % (Auto) 0.4, Absolute Neuts (auto) 6.5, Absolute Lymphs (auto) 2.00, Nucleated RBC % 0.2 06/03/22 18:10: Sodium Cancelled, Potassium Cancelled, Chloride Cancelled, Carbon Dioxide Cancelled, Anion Gap Cancelled, BUN Cancelled, Creatinine Cancelled, Estim Creat Clear Calc Cancelled, Est GFR (MDRD) Af Amer Cancelled, Est GFR (MDRD) Non-Af Cancelled, BUN/Creatinine Ratio Cancelled, Glucose Cancelled, Calcium Cancelled, Troponin I High Sens Cancelled 06/03/22 19:07: Sodium 140, Potassium 3.6, Chloride 106, Carbon Dioxide 23.0, Anion Gap 11, BUN 33 H, Creatinine 1.71 H, Estim Creat Clear Calc 26.61, Est GFR (MDRD) Af Amer 37 L, Est GFR (MDRD) Non-Af 31 L, BUN/Creatinine Ratio 19.3, G lucose 98, Calcium 8.3 L, Troponin I High Sens 3612 H* 06/03/22 19:07: Magnesium 1.3 L 06/03/22 20:50: PT 31.3 H, INR 3.1, APTT 38.9 H 06/03/22 22:30: Troponin I High Sens 2813 H* 06/03/22 22:37: POC Glucose 148 H 06/03/22 23:31: POC Glucose 93 06/04/22 03:40: WBC 11.0, RBC 4.24, Hgb 12.7, Hct 45.7, MCV 107.8 H D, MCH 30.0, MCHC 27.8 L D, RDW Std Deviation 70.3 H, RDW Coeff of Musa 17.8 H, Plt Count 135 L, MPV 10.1, Immature Gran % (Auto) 4.900 H, Neut % (Auto) 74.1 H, Lymph % (Auto) 15.2 L, [place] % (Auto) 5.3, Eos % (Auto) 0.1, Baso % (Auto) 0.4, Absolute Neuts (auto) 8.1 H, Absolute Lymphs (auto) 1.67, Nucleated RBC % 1.6, Differential Comment SCANNED, Anisocytosis 2+, Macrocytosis 2+, [place] Cells RARE 06/04/22 03:40: Sodium 145, Potassium 5.4 H, Chloride 109 H, Carbon Dioxide 9.0 L*, Anion Gap 27 H, BUN 30 H, Creatinine 1.96 H, Estim Creat Clear Calc 23.22, Est GFR (MDRD) Af Amer 32 L, Est GFR (MDRD) Non-Af 26 L, BUN/Creatinine Ratio 15.3, Glucose 38 L*, Calcium 7.4 L, TSH 5.56 H 06/04/22 03:40: Troponin I High Sens 53640 H* 06/04/22 03:40: MRSA (PCR) Negative 06/04/22 04:27: POC Glucose 44 L* 06/04/22 05:45: Lactic Acid 15.3 H* 06/04/22 05:45: Sodium 143, Potassium 5.2 H, Chloride 104, Carbon Dioxide 13.0 L , Anion Gap 26 H, BUN 30 H, Creatinine 1.97 H, Estim Creat Clear Calc 23.10, Est GFR (MDRD) Af Amer 32 L, Est GFR (MDRD) Non-Af 26 L, BUN/Creatinine Ratio 15.2, Glucose 389 H, Calcium 9.7, Total Bilirubin 1.10 H, AST 472 H, ALT 196 H, Alkaline Phosphatase 105, Total Protein 3.8 L, Albumin 1.6 L, Globulin 2.2, Albumin/Globulin Ratio 0.7 L 06/04/22 05:45: APTT > 200.0 H* 06/04/22 05:45: Magnesium 5.1 H* 06/04/22 06:13: POC Glucose 160 H Micro: Microbiology 06/04/22 04:00 Urine Catheter - Mari Legionella Antigen - Final 06/04/22 04:00 Urine Catheter - Mari Streptococcus pneumoniae Antigen (M - Final ABG Data ABG results: Multiple attempts at ABG of been unsuccessful Rhythm Strip Rhythm Strip: A-fib Rate: 100 Ectopy: None Radiology Impression Chest X-Ray 06/03/22 18:10 IMPRESSION: Right sided pneumonia. There is a right pleural effusion Electronically Signed: Christian Boyce MD at 18:37 EDT , Chest X-Ray 06/03/22 23:40 IMPRESSION: Satisfactory ET tube positioning. NG tube in place extending into the stomach; the sidehole of tube lies just above the level of the GE junction and advancement of the tube by 7-[address] it in a more optimal position. Interval development of pneumoperitoneum. Nonstandard communication protocol initiated. Electronically Signed: Maikel Hays MD at 1:02 EDT , ADDENDUM: 06/04/22 0116 IMPRESSION: Satisfactory ET tube positioning. NG tube in place extending into the stomach; the sidehole of tube lies just above the level of the GE junction and advancement of the tube by 7-[address] it in a more optimal position. Interval development of pneumoperitoneum. Nonstandard communication protocol initiated. N.B. : The above Results were Read Back by Maikel Hays MD to Allison Moreno RN, and understanding confirmed on 06/04/2022 01:09:35 (ET). Electronically Signed: Maikel Hays MD at 1:02 EDT , Chest X-Ray 06/04/22 01:30 IMPRESSION: Satisfactory central venous catheter positioning. No pneumothorax. Electronically Signed: Maikel Hays MD at 1:51 EDT , Charges/Coding Procedures Hospitalists Procedures: 48555 Critial Care 1st Hr Multi Select Codes Hospitalists' Procedures Procedures: 87349 Critial Care Addl 30 Min
--- NOTE | 2022-06-04 07:53 | NURSING ---
Spoke to patient's and asked if him and his children are planning to come in this morning to see the patient and he stated that he doesn't know and to call his son, Antonio. Called Antonio and he stated that he will be in with his dad around 0830 this morning.
[2022-06-04 08:45] LABS: Fibrinogen 95 mg/dl (203-444)
[2022-06-04 09:04] LABS: D-Dimer Quantitative (DVT/PE) > 20.00 FEU/ug/m (0.27-0.49)
--- NOTE | 2022-06-04 09:21 | NURSING ---
Family at the bedside and spoke to Dr. Yepez and Dr. Han regarding patient's condition. Family changed code status to DNRCCA no inutbation per verbal order from Dr. Han. HR decreased from 70's to 40's and MAP has decreased to 30's. Family at the bedside. Lots of emotional support given
[2022-06-04 09:53] LABS: Reflex Lactate? Y
--- NOTE | 2022-06-04 13:29 | PN.CARD_ITS ---
Subjective Subjective Patient intubated Family were at bedside decision was made for DNR Objective Data Vital Signs: Vital Signs Temp Pulse Resp BP Pulse Ox O2 Del Method O2 Flow Rate 94.3 F L 72 16 34/22 L 78 Mechanical Ventilator 2 06/04/22 12:00 06/04/22 12:00 06/04/22 12:00 06/04/22 12:00 06/04/22 12:00 06/04/22 12:00 06/03/22 19:16 FiO2 100 06/04/22 12:00 Oxygen Flow Rate (L/min) 2 Oxygen Delivery Method Mechanical Ventilator Weight: 137 lb 2.04 oz Body Mass Index (BMI) 22.1 Intake & Output: Intake and Output for Last 24 Hours 06/02/22 06/03/22 06/04/22 23:59 23:59 23:59 Intake Total 94.57 / 94.57 3600.53 / 3600.53 Output Total 205 / 205 Balance 94.57 / 94.57 3395.53 / 3395.53 Lab / Micro Data Result Diagrams: 06/04/22 03:40 06/04/22 05:45 Labs: Laboratory Results - last 24 hr 06/03/22 18:10: WBC 9.8, RBC 4.73, Hgb 14.3, Hct 46.1, MCV 97.5, MCH 30.2, MCHC 31.0 L, RDW Std Deviation 62.6 H, RDW Coeff of [place] 17.7 H, Plt Count 239, MPV 10.4, Immature Gran % (Auto) 0.500, Neut % (Auto) 66.2, Lymph % (Auto) 20.3, [place] % (Auto) 12.5 H, Eos % (Auto) 0.1, Baso % (Auto) 0.4, Absolute Neuts (auto) 6.5, Absolute Lymphs (auto) 2.00, Nucleated RBC % 0.2 06/03/22 18:10: Sodium Cancelled, Potassium Cancelled, Chloride Cancelled, Carbon Dioxide Cancelled, Anion Gap Cancelled, BUN Cancelled, Creatinine Cancelled, Estim Creat Clear Calc Cancelled, Est GFR (MDRD) Af Amer Cancelled, Est GFR (MDRD) Non-Af Cancelled, BUN/Creatinine Ratio Cancelled, Glucose Cancelled, Calcium Cancelled, Troponin I High Sens Cancelled 06/03/22 19:07: Sodium 140, Potassium 3.6, Chloride 106, Carbon Dioxide 23.0, Anion Gap 11, BUN 33 H, Creatinine 1.71 H, Estim Creat Clear Calc 26.61, Est GFR (MDRD) Af Amer 37 L, Est GFR (MDRD) Non-Af 31 L, BUN/Creatinine Ratio 19.3, Glucose 98, Calcium 8.3 L, Troponin I High Sens 3612 H* 06/03/22 19:07: Magnesium 1.3 L 06/03/22 20:50: PT 31.3 H, INR 3.1, APTT 38.9 H 06/03/22 22:30: Troponin I High Sens 2813 H* 06/03/22 22:37: POC Glucose 148 H 06/03/22 23:31: POC Glucose 93 06/04/22 03:40: WBC 11.0, RBC 4.24, Hgb 12.7, Hct 45.7, MCV 107.8 H D, MCH 30.0, MCHC 27.8 L D, RDW Std Deviation 70.3 H, RDW Coeff of [place] 17.8 H, Plt Count 135 L, MPV 10.1, Immature Gran % (Auto) 4.900 H, Neut % (Auto) 74.1 H, Lymph % (Auto) 15.2 L, [place] % (Auto) 5.3, Eos % (Auto) 0.1, Baso % (Auto) 0.4, Absolute Neuts (auto) 8.1 H, Absolute Lymphs (auto) 1.67, Nucleated RBC % 1.6, Differential Comment SCANNED, Anisocytosis 2+, Macrocytosis 2+, [place] Cells RARE 06/04/22 03:40: Sodium 145, Potassium 5.4 H, Chloride 109 H, Carbon Dioxide 9.0 L*, Anion Gap 27 H, BUN 30 H, Creatinine 1.96 H, Estim Creat Clear Calc 23.22, Est GFR (MDRD) Af Amer 32 L, Est GFR (MDRD) Non-Af 26 L, BUN/Creatinine Ratio 15.3, Glucose 38 L*, Calcium 7.4 L, TSH 5.56 H 06/04/22 03:40: Troponin I High Sens 00880 H* 06/04/22 03:40: MRSA (PCR) Negative 06/04/22 04:27: POC Glucose 44 L* 06/04/22 05:45: Lactic Acid 15.3 H* 06/04/22 05:45: Sodium 143, Potassium 5.2 H, Chloride 104, Carbon Dioxide 13.0 L , Anion Gap 26 H, BUN 30 H, Creatinine 1.97 H, Estim Creat Clear Calc 23.10, Est GFR (MDRD) Af Amer 32 L, Est GFR (MDRD) Non-Af 26 L, BUN/Creatinine Ratio 15.2, Glucose 389 H, Calcium 9.7, Total Bilirubin 1.10 H, AST 472 H, ALT 196 H, Alkaline Phosphatase 105, Total Protein 3.8 L, Albumin 1.6 L, Globulin 2.2, Albumin/Globulin Ratio 0.7 L 06/04/22 05:45: APTT > 200.0 H* 06/04/22 05:45: Magnesium 5.1 H* 06/04/22 05:45: Fibrinogen 95 L*, D-Dimer Quant (PE/DVT) > 20.00 H* 06/04/22 06:13: POC Glucose 160 H 06/04/22 10:40: Lactic Acid 16.0 H* Micro: Microbiology 06/03/22 23:20 Sputum, Induced/Lukens Gram Stain - Final 06/04/22 04:00 Urine Catheter - Mari Legionella Antigen - Final 06/04/22 04:00 Urine Catheter - Mari Streptococcus pneumoniae Antigen (M - Final Rhythm Strip Rhythm Strip: A-fib Rate: 100 Ectopy: None Cardiology Labs/Tests 06/03/22 18:10: WBC 9.8, RBC 4.73, Hgb 14.3, Hct 46.1, MCV 97.5, MCH 30.2, MCHC 31.0 L, Plt Count 239, MPV 10.4, Immature Gran % (Auto) 0.500, Neut % (Auto) 66.2, Lymph % (Auto) 20.3, [place] % (Auto) 12.5 H, Eos % (Auto) 0.1, Baso % (Auto) 0.4, Absolute Neuts (auto) 6.5, Nucleated RBC % 0.2 06/03/22 18:10: Sodium Cancelled, Potassium Cancelled, Chloride Cancelled, Carbon Dioxide Cancelled, Anion Gap Cancelled, BUN Cancelled, Creatinine Cancelled, Est GFR (MDRD) Af Amer Cancelled, Est GFR (MDRD) Non-Af Cancelled, BUN/Creatinine Ratio Cancelled, Glucose Cancelled, Calcium Cancelled 06/03/22 19:07: Sodium 140, Potassium 3.6, Chloride 106, Carbon Dioxide 23.0, Anion Gap 11, BUN 33 H, Creatinine 1.71 H, Est GFR (MDRD) Af Amer 37 L, Est GFR (MDRD) Non-Af 31 L, BUN/Creatinine Ratio 19.3, Glucose 98, Calcium 8.3 L 06/03/22 19:07: Magnesium 1.3 L 06/03/22 20:50: PT 31.3 H, INR 3.1, APTT 38.9 H 06/04/22 03:40: WBC 11.0, RBC 4.24, Hgb 12.7, Hct 45.7, MCV 107.8 H D, MCH 30.0, MCHC 27.8 L D, Plt Count 135 L, MPV 10.1, Immature Gran % (Auto) 4.900 H, Neut % (Auto) 74.1 H, Lymph % (Auto) 15.2 L, [place] % (Auto) 5.3, Eos % (Auto) 0.1, Baso % (Auto) 0.4, Absolute Neuts (auto) 8.1 H, Nucleated RBC % 1.6 06/04/22 03:40: Sodium 145, Potassium 5.4 H, Chloride 109 H, Carbon Dioxide 9.0 L*, Anion Gap 27 H, BUN 30 H, Creatinine 1.96 H, Est GFR (MDRD) Af Amer 32 L, Est GFR (MDRD) Non-Af 26 L, BUN/Creatinine Ratio 15.3, Glucose 38 L*, Calcium 7.4 L 06/04/22 05:45: Lactic Acid 15.3 H* 06/04/22 05:45: Sodium 143, Potassium 5.2 H, Chloride 104, Carbon Dioxide 13.0 L , Anion Gap 26 H, BUN 30 H, Creatinine 1.97 H, Est GFR (MDRD) Af Amer 32 L, Est GFR (MDRD) Non-Af 26 L, BUN/Creatinine Ratio 15.2, Glucose 389 H, Calcium 9.7, Total Bilirubin 1.10 H 06/04/22 05:45: APTT > 200.0 H* 06/04/22 05:45: Magnesium 5.1 H* 06/04/22 05:45: D-Dimer Quant (PE/DVT) > 20.00 H* 06/04/22 10:40: Lactic Acid 16.0 H* Rhythm: EKG: ECHO: Stress Test: Cardiac Cath: PCI: CT Surgery: Holter monitor: EPS: PPM: CXR: Chest CT Scan: Radiography Diagnostic Testing: Radiology Impression Chest X-Ray 06/03/22 18:10 IMPRESSION: Right sided pneumonia. There is a right pleural effusion Electronically Signed: Christian Boyce MD at 18:37 EDT , Chest X-Ray 06/03/22 23:40 IMPRESSION: Satisfactory ET tube positioning. NG tube in place extending into the stomach; the sidehole of tube lies just above the level of the GE junction and advancement of the tube by 7-[address] it in a more optimal position. Interval development of pneumoperitoneum. Nonstandard communication protocol initiated. Electronically Signed: Maikel Hays MD at 1:02 EDT , ADDENDUM: 06/04/22 0116 IMPRESSION: Satisfactory ET tube positioning. NG tube in place extending into the stomach; the sidehole of tube lies just above the level of the GE junction and advancement of the tube by 7-[address] it in a more optimal position. Interval development of pneumoperitoneum. Nonstandard communication protocol initiated. N.B. : The above Results were Read Back by Maikel Hays MD to Allison Moreno RN, and understanding confirmed on 06/04/2022 01:09:35 (ET). Electronically Signed: Maikel Hays MD at 1:02 EDT , Chest X-Ray 06/04/22 01:30 IMPRESSION: Satisfactory central venous catheter positioning. No pneumothorax. Electronically Signed: Maikel Hays MD at 1:51 EDT , Assessment & Plan Assessment/Plan (1) Pneumoperitoneum of unknown etiology: (2) H/O coronary artery bypass surgery: (3) Chronic systolic (congestive) heart failure: (4) Ischemic cardiomyopathy: (5) Essential (primary) hypertension: (6) Hyperlipidemia: QUALIFIERS: Hyperlipidemia type: unspecified Qualified Code(s): E78.5 - Hyperlipidemia, unspecified (7) Chronic kidney disease (CKD): (8) Nicotine dependence: QUALIFIERS: Nicotine product type: cigarettes Substance use status: uncomplicated Qualified Code(s): F17.210 - Nicotine dependence, cigarettes, uncomplicated (9) Peripheral vascular occlusive disease: (10) Acute non-ST elevation myocardial infarction (NSTEMI): (11) Cardiac arrest: PLAN: 77-year-old female with extensive cardiac history, post cardiac arrest last night. Patient had history of CAD Status post CABG, triple-vessel. Severe ischemic cardiomyopathy with ejection fraction 25% Patient has chronic systolic heart failure, status post cardiac arrest and developed pneumo peritoneum Presentation was with symptoms of shortness of breath with exertion and also had a chronic cough. Cardiac care plan recommendations; #1 patient has right lower lobe infiltrate on chest x-ray suggestive of pneumonia and sepsis With DIC 2 has acute on chronic systolic heart failure with a new onset atrial fibrillation and rapid ventricular rate 3. Patient has significant elevated cardiac biomarkers/high sensitive troponin with non-ST elevation [place] and acute renal injury Not a candidate for invasive cardiac evaluation and decision was made for DNR.
--- NOTE | 2022-06-04 14:21 | NURSING ---
1350: Spoke to patient's and explained that the patient does not have any reflexes and that it was just a matter of time until she passes. They asked that all medications be turned off. 1400: Spoke to patient's regarding removing breathing tube and he asked that it be removed as well. Patient extubated at 1400. Family at bedside. 1409: Patient without pulse, BP or respirations. verified by second RN Katty Kathleen 1411: Dr. byrne notified of patient's
--- NOTE | 2022-06-04 15:00 | EXP.PCM_ITS ---
Preliminary Cause of Preliminary Cause of Preliminary Cause of : acute cardiopulmonary arrest nonstemi septic shock right lower lobe pneumonia, DIC Date of Admission: 06/03/22 Date of : 06/04/22 Principle Diagnosis acute cardiopulmonary arrest nonstemi septic shock right lower lobe pneumonia Problem List: Active and Suspected Problems (Updated 06/04/22 @ 02:[address] Caleb Morales MD) Pneumoperitoneum of unknown etiology (Acute) Cardiac arrest (Acute) GILBERTO (acute kidney injury) (Acute) Acute non-ST elevation myocardial infarction (NSTEMI) (Acute) Pneumonia (Acute) Atrial fibrillation, new onset (Acute) Hospital Course Patient is a 77-year-old female with past medical history as outlined who was admitted through the ED on 06/03/2022 with a complaint of progressively worsening shortness of breath for 3 days prior to admission. Shortness of breath was agg ravated by exertion and relieved by rest. She also had a chronic cough and also complained of palpitations and feeling like she was having skipped heartbeats. In the ED, she was afebrile but tachycardic and was found to be hypoxic, saturating at 76% on room air. She was placed on oxygen by nasal cannula. Labs were remarkable for troponin of 3612 and chest x-ray showed right pleural effusion with infiltrate. EKG showed A. fib. She was initially admitted to the progressive care unit and managed for non-STEMI. Cardiology was consulted and she was placed on heparin drip and given aspirin. After arrival in the progressive care unit, a CODE BLUE was called and she was resuscitated via ACLS protocol with epinephrine and also had chest compressions. She was found to be in PEA. ROSC was successfully achieved and she was found to be in A. fib and also hypotensive. She was intubated and placed on pressors and transferred to the ICU. Due to the significant hypotension, she had a central line placed and was started on pressors and eventually required 3 pressors. She was also placed on stress dose steroids. Heparin was not started as patient started bleeding from the NG tube and also had ecchymotic patches all over as well as bleeding from her IV sites. General surgery was consulted due to concerns for perforated bowel. Patient also subsequently developed mottling of the skin. Hospital course was also complicated by hypoglycemia. She was therefore managed for acute hypoxic respiratory failure due to non-STEMI and acute cardiopulmonary arrest as well as possible DIC and GILBERTO as well as septic shock due to right lower lobe pneumonia. She was placed on broad-spectrum antibiotics. Family saw patient and initially she was full code but family subsequently changed their mind and made her DNR CCA with intubation. Patient at 1409 on 06/04/2022 Cause of is acute cardiopulmonary arrest, septic shock due to nonstemi and right lower lobe pneumonia Visit Charges Inpatient E&M: [id number] Disch Hosp
== END 2022-06-04 17:04 ==
LOC: ED 20:49 → PCU 20:59 → ICU 06-04 03:41
PROVIDERS: Internal Medicine Critical Care Medicine; Admitting Provider Hospitalist; Emergency Provider Emergency Medicine; PCP Family Medicine Geriatric Medicine; Visit Provider Student in an Organized Health Care Education/Training Program
DX: I21.4 Non-ST elevation (NSTEMI) myocardial infarction (principal); J96.01 Acute respiratory failure with hypoxia; D65 Disseminated intravascular coagulation [defibrination syndrome]; R65.21 Severe sepsis with septic shock; A41.9 Sepsis, unspecified organism; I50.23 Acute on chronic systolic (congestive) heart failure; J18.9 Pneumonia, unspecified organism; I13.0 Hypertensive heart and chronic kidney disease with heart failure and stage 1 through stage 4 chronic kidney disease, or unspecified chronic kidney disease; N17.9 Acute kidney failure, unspecified; J44.0 Chronic obstructive pulmonary disease with (acute) lower respiratory infection; J90 Pleural effusion, not elsewhere classified; I46.9 Cardiac arrest, cause unspecified; I27.21 Secondary pulmonary arterial hypertension; E83.51 Hypocalcemia; I95.9 Hypotension, unspecified; E11.649 Type 2 diabetes mellitus with hypoglycemia without coma; E11.22 Type 2 diabetes mellitus with diabetic chronic kidney disease; I48.91 Unspecified atrial fibrillation; I25.119 Atherosclerotic heart disease of native coronary artery with unspecified angina pectoris; E11.51 Type 2 diabetes mellitus with diabetic peripheral angiopathy without gangrene; N18.32 Chronic kidney disease, stage 3b; I25.5 Ischemic cardiomyopathy; I08.1 Rheumatic disorders of both mitral and tricuspid valves; E78.5 Hyperlipidemia, unspecified; F17.210 Nicotine dependence, cigarettes, uncomplicated; I25.2 Old myocardial infarction; K66.8 Other specified disorders of peritoneum; Z66 Do not resuscitate; Z79.82 Long term (current) use of aspirin; Z79.84 Long term (current) use of oral hypoglycemic drugs; Z79.899 Other long term (current) drug therapy
CPT/HCPCS: 31500; 31720; 36415; 71045; 72148; 80048; 80053; 82962; 83605; 83735; 84443; 84484; 85025; 85379; 85384; 85610; 85730; 87040; 87070; 87205; 87449; 87641; 92950; 93005; 94002; 94003; 99285; J7030; J7050; A4216; C1751; J0610; J0696; J3010; J3490